=== PATIENT | male | born 1975 | race Caucasian/White ===

== ENCOUNTER 2017-01-11 20:32 | Emergency (ER) | payer OTHER ==
[~2017-01-11] VITALS: Ht 182.9 cm; Wt 90.7 kg
--- NOTE | 2017-01-11 20:37 | ED PSYCHIATRIC COMPLAINT ---
See Addendum History of Present Illness General Chief Complaint: Psychiatric Related Complaint Stated Complaint: PSYCH EVAL Source: patient, EMS, police Exam Limitations: clinical condition Vital Signs & Intake/Output Vital Signs & Intake/Output Vital Signs Date Time Temp Pulse Resp B/P Pulse O2 O2 Flow FiO2 Ox Delivery Rate 01/13 1426 97.0 80 18 166/89 96 Room Air 01/13 1039 97.2 92 18 145/90 97 Room Air 01/13 0650 97.0 66 20 153/82 95 Room Air 01/12 2233 97.0 78 20 148/95 94 Room Air 01/12 1852 97.2 77 18 152/95 97 Room Air Triage Nurses Notes Reviewed? yes Onset: Gradual Duration: day(s): Timing: recent history Severity: moderate Associated Symptoms: anxiety, agitation HPI: 41 yo gentleman h/o schizophrenia, presents with increased agitation. Per the police, he was aggressive, combative , with increased anxiety. His , who had been away for a week, came home to find him in this condition. It is unclear if he had been taking his medications. The medics note paranoia - he feels there are strangers in the home. They also note he expressed auditory and visual hallucinations. He denies SI/HI. (ALBERTO YEH,ROMELIA Cuellar) Allergies Coded Allergies: No Known Allergies (01/12/17) Reconcile Medications Clonazepam 1 MG TABLET 1 TAB PO BIDP PRN ANXIETY (Reported) Lamotrigine 100 MG TABLET 1 TAB PO DAILY MENTAL HEALTH (Reported) Levothyroxine Sodium 50 MCG TABLET 1 TAB PO DAILY AC THYROID (Reported) Casa Carbonate 600 MG CAPSULE 1 CAP PO BID MENTAL HEALTH (Reported) Quetiapine Fumarate (Seroquel XR) 50 MG TAB.ER.24H 2 TAB PO QPM MENTAL HEALTH (Reported) (JASMYN YEH,ROSENDA Roberts) Past History Travel History Traveled to [place] past 21 day No Medical History Any Pertinent Medical History? see below for history Psychiatric: schizophrenia Surgical History Surgical History: none Family History Hx Contributory? No (ALBERTO YEH,ROMELIA Cuellar) Review of Systems Review of Systems Constitutional: Reports: no symptoms. EENTM: Reports: no symptoms. Respiratory: Reports: no symptoms. Cardiovascular: Reports: no symptoms. GI: Reports: no symptoms. Genitourinary: Reports: no symptoms. Musculoskeletal: Reports: no symptoms. Skin: Reports: no symptoms. Neurological/Psychological: Reports: no symptoms. Hematologic/Endocrine: Reports: no symptoms. Immunologic/Allergic: Reports: no symptoms. All Other Systems: Reviewed and Negative (ROMELIA DOMINGUEZ MD) Physical Exam Physical Exam General Appearance: well developed/nourished, mild distress Head: atraumatic Eyes: Bilateral: PERRL, EOMI. Ears, Nose, Throat: normal pharynx, normal ENT inspection, hearing grossly normal Neck: normal inspection, supple Respiratory: normal breath sounds Cardiovascular: regular rate/rhythm Gastrointestinal: soft, non-tender Extremities: normal range of motion Neurological/Psychiatric: agitated, anxious, oriented x 3 Appearance/Memory/Insight: denies illness, disheveled, impaired insight Behavoir/Eye Contact/Speech: cooperative Thoughts/Hallucinations: auditory hallucinations Skin: intact, normal color, warm/dry SAD PERSONS SAD PERSONS Response Value Male Sex? yes 1 Depression/Hopelessness? yes 2 Rational Thinking Loss? yes 2 Social Support? has support 0 Total 5 SAD PERSONS Done? yes (ROMELIA DOMINGUEZ MD) Progress Differential Diagnosis: drug intoxication, schizophrenia vs other. Plan of Care: Orders Procedure Date/time Status Continuous Observation Monitor 01/13 1600 Active Continuous Observation Monitor 01/13 1200 Active Continuous Observation Monitor 01/13 0759 Active 01/12/2017 7:20:57 PM Patient signed out to me by Dr. Weaver. Pending inpatient crisis bed placement. (JAH HUGHES MD) Hand-Off Endorsed To: ROSENDA WEAVER MD Endorsed Time: 0700 Pending: consult (ROMELIA DOMINGUEZ MD) Hand-Off Endorsed To: JAH HUGHES MD Endorsed Time: 1900 Pending: other (BED SEARCH) Comments: Patient has been seen and evaluated by statement clerks supervisor. Patient will be admitted. A bed search is underway. (ROSENDA WEAVER MD) Hand-Off Endorsed To: DAISHA GUILLEN MD Endorsed Time: 0700 Pending: other (JAH HUGHES MD) Departure Departure Disposition: STILL A PATIENT Condition: Stable Clinical Impression Primary Impression: Schizophrenia Secondary Impressions: Alcohol intoxication, Hallucinations, Paranoia Referrals: DINORAH BENTLEY,FRED Craig (PCP/Family) Departure Forms: Customer Survey General Discharge Information (ALBERTO YEH,ROMELIA Cuellar) Sig/Dulce Start time Last Medication Dose Stop Time Status Admin Haloperidol 5 MG QPM 01/12 2200 UNVr (Haldol) Quetiapine Fumarate 100 MG QPM 01/12 2200 UNVr (Seroquel) Risperidone 3 MG QPM 01/12 2200 UNVr (Risperidone) Trazodone HCl 100 MG QPM 01/12 2200 UNVr (Desyrel) Lubiprostone 8 MCG BID 01/12 1000 UNVr (Amitiza) Clonazepam 2 MG ONCE ONE 01/11 2045 CAN (Klonopin 1MG Tab) 01/11 2046 Laboratory Tests 01/11/172135: Casa 0.2 L, Serum Alcohol 231.0 01/11/172135: Anion Gap 16, Estimated GFR > 60, BUN/Creatinine Ratio 13.8, Glucose 101 H, Calcium 9.8, Total Bilirubin 0.5, AST 125 H, ALT 115 H, Alkaline Phosphatase 47, Total Protein 7.2, Albumin 4.1, Globulin 3.1, Albumin/Globulin Ratio 1.3, TSH 3.280, CBC w Diff NO MAN DIFF REQ, RBC 5.72, MCV 83.8, MCH 28.7, RDW 13.7, MPV 7.2 L, Gran % 60.0, Lymphocytes % 27.2, Monocytes % 7.1, Eosinophils % 5.2 H, Basophils % 0.5, Absolute Granulocytes 6.7 H, Absolute Lymphocytes 3.1, Absolute Monocytes 0.8 H, Absolute Eosinophils 0.6, Absolute Basophils 0.1, PUBS MCHC 34.2, Urine Opiates Screen < 100.00, Methadone Screen < 40, Barbiturate Screen < 60, Ur Phencyclidine Scrn < 6.00, Amphetamines Screen < 100 , U Benzodiazepines Scrn < 85, Urine Cocaine Screen < 50, Urine Cannabis Screen < 5.00 01/12/2017 7:20:57 PM Patient signed out to me by Dr. Weaver. Pending inpatient crisis bed placement. (ELLEN YEH,JAH) Hand-Off Endorsed To: ROSENDA WEAVER MD Endorsed Time: 0700 Pending: consult (ALBERTO YEH,ROMELIA Cuellar) Hand-Off Endorsed To: JAH HUGHES MD Endorsed Time: 1899 Pending: other (BED SEARCH) Comments: Patient has been seen and evaluated by statement clerks supervisor. Patient will be admitted. A bed search is underway. (JASMYN YEH,ROSENDA Roberts) Hand-Off Endorsed To: MINDY YEH,DAISHA Monahan Endorsed Time: 07 Pending: other (JAH HUGHES MD) Departure Departure Disposition: STILL A PATIENT Condition: Stable Clinical Impression Primary Impression: Schizophrenia Secondary Impressions: Alcohol intoxication, Hallucinations, Paranoia Referrals: DINORAH BENTLEY,FRED Craig (PCP/Family) Departure Forms: Customer Survey General Discharge Information (ALBERTO YEH,ROMELIA Cuellar)
[2017-01-11 21:46] LABS: ABSOLUTE BASOPHIL COUNT 0.1 /CUMM (0.0-0.2); ABSOLUTE EOSINOPHIL COUNT 0.6 /CUMM (0.0-0.7); ABSOLUTE GRANULOCYTE CT 6.7 /CUMM (1.4-6.5); ABSOLUTE LYMPH COUNT 3.1 /CUMM (1.2-3.4); ABSOLUTE MONOCYTE COUNT 0.8 /CUMM (0.10-0.60); BASOPHIL % 0.5 % (0.0-2.0); EOSINOPHIL % 5.2 % (0-5); MEAN CORPUSCULAR HGB 28.7 PG (27.0-31.0); MEAN CORPUSCULAR HGB CONC 34.2 G/DL (33.0-37.0); MEAN CORPUSCULAR VOLUME 83.8 FL (80.0-94.0); MEAN PLATELET VOLUME 7.2 FL (7.4-10.4); PLATELET COUNT 239 /CUMM (130-400); RBC DISTRIBUTION WIDTH 13.7 % (11.5-14.5); RED BLOOD CELL CT 5.72 /CUMM (4.70-6.10); WHITE BLOOD CELL COUNT 11.2 /CUMM (4.8-10.8)
--- NOTE | 2017-01-11 22:15 | ED PSY CRISIS COLLATERAL NOTE ---
Collateral Note Collateral Note Family/Inform/Anju Contacts: Spoke to patient's Ammy araujo . Ammy states she has known the patient for four years. She states the patient moved from [facility] to live with her three years ago. Ammy states the patient has a history of inpatient psychiatric hospitalizations, his most recent being at [facility] in 2015. She reports the patient as being diagnosed with bipolar disorder with psychotic features. She reports the patient experiences auditory hallucinations, which at times are command in nature. She reports the patient experinces paranoid delusions of "people in the house talking about him that are not there." She reports the patient has a history of alcohol dependence to self-medicate and is prescibed Antabuse. She reports he is prescribed [place] and Lamictal, which a visiting nurse assures he complies with taking on a daily basis. She reports the patient was prescribed risperdal 3mg daily, which helped eliminate the voices from 10/2015 to 06/2016. However, Ammy states the patient refused to take the Risperdal as it was causing him to gain weight when he changed SLIP PRESSER in 06/2016. She states the patient is currently being prescribed medications by an SLIP PRESSER Guido at [facility] in [place], [place]. She reports the patient has been decompensating since he has not been on risperdal. She reports that the patient's psychosis and auditory hallucinations have worsened becoming command in nature. She reports the patient has enagged in self harm of cutting himself. She states the patient has no history of suicide attempts or homicidal ideation. Ammy states that she feels the patient is not safe to go home in his current state and requests inpatient admission to for medication evaluation. This report prepared by LATRELL Beverly Technical Program Manager and signed off by Tyrone Rolon LCSW
[2017-01-11 22:41] LABS: LITHIUM 0.2 mmol/L (0.6-1.2)
--- NOTE | 2017-01-12 12:07 | ED PSYCH CRISIS CONSULTATION ---
See Addendum Crisis Consult Basic Assessment Date of Consult: 01/12/17 Responsible Person/Accompanied By: Self Insurance Authorization: Insurance #1: Insurance name: RAE ALVAREZ Phone number: Policy number: [id number] Group number: Authorization number: ED Provider: Patient's ED Provider: ALBERTO YEH,ROMELIA Cuellar Primary Care Physician: Patient's PCP: FRED MENA PCP's Current Psychiatrist: Dr. Shane Esquivel Chief Complaint: Psychiatric Related Complaint Patient's Quote: " I have been hearing voices telling someone is in my house" Present Illness: Pt is a 41 year old engaged male with a history of Schizoaffective Disorder. Pt presents to the emergency room after hearing voices telling him someone is in his attic on January 11, 2017. He reports the police was called to his home and the house was searched, and the voices kept telling him someone was in his attic. He was then BIBA Per the police, he was aggressive, combative, with increased anxiety. His , who had been away for a week, came home to find him in this condition. Pt reports a history of Alcohol use and drink (2) shots to help his voices go away. He denies any suicidal or homicidal ideation. Pt denies any depression or feeling sad, reports worrying about employment and being able to contribute in his relationship. He denies visual hallucination and reports a history of auditory hallucinations. Pt reports a long history of hearing voices, history of command hallucinations to kill self. He reports this episode of hearing voices being paranoid that someone is in his house. Pt reports the voices has been getting worse and needs the voices to get better. He reports being treated at [facility] in [place], [place]. He reports current medications [place] 600 mg, Lamictal 100mg, Seroquel 100 mg. He reports being treated in the past with Risperdal 3 mg with good affect for the voices and reports the Risperdal was change to Seroquel. Pt reports not liking the side affects of Risperdal weight gain. The Pt is cuurently engaged to Ammy Cano who is concerned the Pt needs to be stabilized. Patient's Address: [address] [place] [address] Other Phone Number: Who Do You Live With? Friend (current engaged) Family/Informants Interviewed: Ammy Cano [phone] (engaged) Allergies - Coded Allergies: No Known Allergies (01/12/17) Laboratory Results: Laboratory Tests 01/11/172135: [place] 0.2 L, Serum Alcohol 231.0 01/11/172135: Anion Gap 16, Estimated GFR > 60, BUN/Creatinine Ratio 13.8, Glucose 101 H, Calcium 9.8, Total Bilirubin 0.5, AST 125 H, ALT 115 H, Alkaline Phosphatase 47, Total Protein 7.2, Albumin 4.1, Globulin 3.1, Albumin/Globulin Ratio 1.3, TSH 3.280, CBC w Diff NO MAN DIFF REQ, RBC 5.72, MCV 83.8, MCH 28.7, RDW 13.7, MPV 7.2 L, Gran % 60.0, Lymphocytes % 27.2, Monocytes % 7.1, Eosinophils % 5.2 H, Basophils % 0.5, Absolute Granulocytes 6.7 H, Absolute Lymphocytes 3.1, Absolute Monocytes 0.8 H, Absolute Eosinophils 0.6, Absolute Basophils 0.1, PUBS MCHC 34.2, Urine Opiates Screen < 100.00, Methadone Screen < 40, Barbiturate Screen < 60, Ur Phencyclidine Scrn < 6.00, Amphetamines Screen < 100 , U Benzodiazepines Scrn < 85, Urine Cocaine Screen < 50, Urine Cannabis Screen < 5.00 Past History Past Medical History Psychiatric: schizo affective disorder, schizophrenia, BIPOLAR 1 Endocrine: hypothyroidism Past Surgical History Surgical History: 1 Psychosocial History Strengths/Capabilities: Pt has a supportive significant other Ammy Cano [phone], motivated for treatment. Psychiatric Treatment History Psych Treatment Psychiatric Treatment Yes Inpatient Treatment Yes Outpatient Treatment Yes Location of Treatment [place] Reason for Treatment Schizoaffective Disorder Dates of Treatment currently being treated at [facility] Response to Treatment Poor Diagnosis by History: Bipolar Disoder with Psychotic features. Substance Use/Abuse History Drug Use/Abuse Substances Used/Abused Yes Substance Used/Abused Alcohol First Use 13 year old Last Used yesterday (2) shots How much used/taken 2 shots How often occassionally For how long unknown Route of use oral Substance Abuse Treatment Substance Abuse Treatment Past Substance Abuse [place] Yes Inpatient Treatment Yes Outpatient Treatment No Location of Treatment Out of [facility] Reason for Treatment Alcohol use Dates of Treatment 2004 Response to Treatment poor Comments: Pt presents to the emergency room with auditory hallcinations hearing voices telling someone is in his attic. He has decompensated after not taken Risperdal and drinking Alcohol to calm voices, this clinician consulted with Dr. Shane Esquivel for dispostion of inpatient psychiatric treatment to stabilze the Pt. Current Mental Status Mental Status Orientation: Person, Place, Situation Affect: Anxious, Flat Speech: Slurred Neuro-vegetative: Concentration Poor, Sleep Disturbance Appearance Appearance- Dress/Hygiene: dressed in hospital clothing. Behaviors Thought Process: WNL Thought Content: Auditory Hallucinations, Paranoid Memory: Short term memory Insight: Poor SI/HI Risk Assessment Past Suicidal Ideation/Attempts No Current Suicidal Ideation/Att No Past Homicidal Ideation/Att: No Current Homicidal Ideation/Attempts No Degree of Intent: None Gravely Disabled: Lack of Insight, Poor Impulse Control, Poor Judgment Risk Factors: SA/MH hospitalized, substance abuse, lack of outcome concern, male Lethality Ratin PTSD Checklist PTSD Score: PTSD Score: Response Value Disturbing memories,thoughts,images of stressful experience? Not at all 1 Disturbing dreams of stressful experience from past? Not at all 1 Suddenly acting/feeling as if reliving stressful experience? Not at all 1 Total 3 PTSD Done? pt unable to participate ED Management Sitter: Yes Restraints: No DSM5/PS Stressors/Medical Prob Diagnosis' (DSM 5, Stressors, Medical): Bipolar Disorder, current with psychotic features F31.2 Current GAF: 25 Comments: Pt presents to the emergency room with auditory hallcinations hearing voices telling someone is in his attic. He has decompensated after not taken Risperdal and drinking Alcohol to calm voices, this clinician consulted with Dr. Shane Esquivel for dispostion of inpatient psychiatric treatment to stabilze the Pt. Departure Disposition Psych Medical Clearance Date: 01/12/17 Medically Cleared at: 1000 Time Started: 1000 Time Ended: 1100 Psychiatrist Consulted: Dr. Shane Esquivel Plan for Disposition - Modality: Bed Search Rationale for Disposition: Pt presents to the emergency room with auditory hallcinations hearing voices telling someone is in his attic. He has decompensated after not taken Risperdal and drinking Alcohol to calm voices, this clinician consulted with Dr. Shane Esquivel for dispostion of inpatient psychiatric treatment to stabilze the Pt. Type of IP Admission: Voluntary Referrals DINORAH BENTLEY,FRED Craig (PCP/Family)
--- NOTE | 2017-01-12 13:11 | ED PSYCHIATRIST/APRN CONSULT ---
See Addendum Psychiatrist/DEVELOPMENT SYSTEM EFFICIENCY MANAGER ED Consult Assessment and Plan: Pt seen as follow-up. In bed, limited engagement but cooperative. Denies SI or HI. MSE Appears as stated age. Not engaged but cooperative behavior, good, appropriate eye contact. Nl speech rate and prosody. No psychomotor retardation or agitation. Mood waiting Affect irritable, constricted, appropriate, non- liable. Linear and goal directed thought process. Denies SI or HI. Does not appear to be responding to internal stimuli. ?AVHs, paranoia, delusions. I/J: limited Pt in need of acute psychiatric stablization. Awaiting placement. Bed search underway
[2017-01-12] MEDS ORDERED: LITHIUM CARBON600 M1 PO (14:25)
[2017-01-12] MEDS ORDERED: LAMOTRIGINE100 M2 PO (14:26)
[2017-01-12] MEDS ORDERED: LEVOTHYROXINE50 MCG PO (14:26)
[2017-01-12] MEDS ORDERED: SEROQUEL XR50 M1 PO (14:26)
[2017-01-12] MEDS ORDERED: CLONAZEPAM1 M2 PO (14:27)
--- NOTE | 2017-01-13 12:19 | ED PSYCHIATRIST/APRN CONSULT ---
Psychiatrist/LINEN WORKER ED Consult Assessment and Plan: Pt seen as f/u. Pt notes thoughts are "a little slower." Feels dose of zyprexa in addition to current regimen was helpful. Continues to feel the need for inpatient psych. MSE Appears as stated age. Cooperative behavior, good, appropriate eye contact. Nl speech rate and prosody. + mild psychomotor agitation. Mood OK Affect anxious , constricted, appropriate, non-liable. Linear and goal directed thought process though slightly racing. Denies SI or HI. Does not appear to be responding to internal stimuli. +AVHs,+paranoia, +elusions. I/J: limited Pt needs acute psychiatric stablization. Awaiting bed.
[2017-01-14 13:11] VITALS: BP 138/72
[2017-01-14] MEDS ORDERED: LAMICTAL100 M2 PO (13:34)
[2017-01-14] MEDS ORDERED: SEROQUEL XR50 M1 PO (13:34)
[2017-01-14] MEDS ORDERED: LITHIUM CARBON600 M1 PO (13:34)
[2017-01-14] MEDS ORDERED: RISPERDAL3 M1 PO (13:48)
== END 2017-01-14 13:59 ==
LOC: ERH 20:32
PROVIDERS: Pediatrics
DX: F20.9 Schizophrenia, unspecified (principal); F10.129 Alcohol abuse with intoxication, unspecified; R44.3 Hallucinations, unspecified; F22 Delusional disorders
CPT/HCPCS: 80307; 96372; G0463; G0480; J1630

== ENCOUNTER 2017-01-17 20:17 | Inpatient (IN) | payer OTHER ==
[~2017-01-17] VITALS: Ht 180.3 cm; Wt 136.8 kg
[~2017-01-17 20:17] MED LIST: CLONAZEPAM1 M2 PO; LAMICTAL100 M2 PO; LAMOTRIGINE100 M2 PO; LEVOTHYROXINE50 MCG PO; LITHIUM CARBON600 M1 PO; RISPERDAL3 M1 PO; SEROQUEL XR50 M1 PO
--- NOTE | 2017-01-17 21:34 | ED PSYCHIATRIC COMPLAINT ---
History of Present Illness General Chief Complaint: Psychiatric Related Complaint Stated Complaint: "HALLUCINATIONS, ETOH" PER FIANCE Source: patient, family, old records Exam Limitations: no limitations Vital Signs & Intake/Output Vital Signs & Intake/Output Vital Signs Date Time Temp Pulse Resp B/P B/P Pulse O2 O2 Flow FiO2 Mean Ox Delivery Rate 01/18 1111 97.4 76 20 172/82 96 Room Air 01/18 0839 97.2 86 18 157/83 96 Room Air 01/18 0632 98.1 91 20 165/94 01/18 0628 98.1 91 20 165/94 95 Room Air 01/18 0430 85 20 01/18 0430 85 20 96 01/18 0219 11 153/90 01/18 0200 98.1 98 20 153/90 96 Room Air 01/18 0030 98.0 95 20 145/86 96 01/17 2250 98.2 89 20 138/77 96 01/17 2027 98.4 110 20 120/71 95 Room Air ED Intake and Output 01/18 0000 01/17 1200 Intake Total Output Total Balance Patient 290 lb Weight Weight Reported by Patient Measurement Method Allergies Coded Allergies: No Known Allergies (01/12/17) Reconcile Medications Clonazepam 1 MG TABLET 1 TAB PO BIDP PRN ANXIETY (Reported) Lamotrigine 100 MG TABLET 1 TAB PO DAILY MENTAL HEALTH (Reported) Levothyroxine Sodium 50 MCG TABLET 1 TAB PO DAILY AC THYROID (Reported) [place] Carbonate 600 MG CAPSULE 1 CAP PO BID MENTAL HEALTH (Reported) Risperidone (Risperdal) 3 MG TABLET 1 TAB PO QPM SLEEP Triage Note: PT TO ED FOR AUDITORY/VISUAL HALLUCINATIONS AND WORSENING PARANOIA. PT RECENTLY SEEN AND DISCHARGED FROM ED FOR SAME LAST SATURDAY. DENIES SI/HI. PT ADMITS TO DRINKING APPROX 1 PINT OF VODKA TODAY AND HAS BEEN DAILY FOR LAST 2.5 WEEKS. NO HX OF DETOX SEIZURES. Triage Nurses Notes Reviewed? yes Onset: several days Duration: day(s):, changing over time, continues in ED, getting worse Timing: recent history Severity: moderate Associated Symptoms: impaired concentration, hallucination auditory and visual HPI: Since discharge from hospital less than 1 week ago patient began drinking alcohol with progressive auditory and visual hallucinations. He denies fever chills nausea vomiting diarrhea abdominal pain chest pain shortness breath headache dysuria rash bleeding suicidal ideation homicidal ideation. (TJ VALENCIA MD) Past History Travel History Traveled to [place] past 21 day No Medical History Any Pertinent Medical History? see below for history Neurological: NONE EENT: NONE Cardiovascular: NONE Respiratory: NONE Gastrointestinal: NONE Hepatic: NONE Renal: NONE Musculoskeletal: NONE Psychiatric: schizo affective disorder, schizophrenia, BIPOLAR 1 Endocrine: hypothyroidism Blood Disorders: NONE Cancer(s): NONE Isolation History: Standard Surgical History Surgical History: none Psychosocial History Who do you live with Friend What is your primary language Arabic Tobacco Use: Never used ETOH Use: alcoholic Illicit Drug Use: denies illicit drug use Family History Hx Contributory? No (TJ VALENCIA MD) Review of Systems Review of Systems Constitutional: Reports: no symptoms. EENTM: Reports: no symptoms. Respiratory: Reports: no symptoms. Cardiovascular: Reports: no symptoms. GI: Reports: no symptoms. Genitourinary: Reports: no symptoms. Musculoskeletal: Reports: no symptoms. Skin: Reports: no symptoms. Neurological/Psychological: Reports: see HPI, anxiety, confusion. Hematologic/Endocrine: Reports: no symptoms. Immunologic/Allergic: Reports: no symptoms. All Other Systems: Reviewed and Negative (TJ VALENCIA MD) Physical Exam Physical Exam General Appearance: well developed/nourished, alert, awake, anxious, moderate distress, intoxicated, obese Head: atraumatic, normal appearance Eyes: Bilateral: normal appearance, PERRL, EOMI. 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 patient not suicidal (TJ VALENCIA MD) Progress Differential Diagnosis: drug intoxication, drug overdose, drug withdrawal, electrolyte abnormality, hypoglycemia Plan of Care: Orders Procedure Date/time Status Regular Diet 01/18 B Active Admit to inpatient psych 01/18 1421 Active Patient Safety Monitor 01/18 0700 Active Patient Safety Monitor 01/18 0300 Active Patient Safety Monitor 01/17 230 Active Patient Safety Monitor 01/17 2105 Active URINE DRUG SCREEN FOR ER ONLY 01/17 2105 Complete LITHIUM 01/17 2105 Complete ETHANOL 01/17 2105 Complete COMPREHENSIVE METABOLIC PANEL 01/17 2105 Complete CBC WITHOUT DIFFERENTIAL 01/17 2105 Complete ED CRISIS PSYCH CONSULT 01/17 2105 Active Current Medications Sig/Dulce Start time Last Medication Dose Stop Time Status Admin [place] Carbonate 600 MG BID 01/18 1330 UNVr ([place] Carbonate) Levothyroxine Sodium 0.05 MG DAILY AC 01/18 1328 UNVr (Synthroid) Laboratory Tests 01/18/17 0641: Urine Opiates Screen < 100.00, Methadone Screen < 40, Barbiturate Screen < 60, Ur Phencyclidine Scrn < 6.00, Amphetamines Screen < 100, U Benzodiazepines Scrn < 85, Urine Cocaine Screen < 50, Urine Cannabis Screen < 5.00 01/17/17 2150: Anion Gap 16, Estimated GFR > 60, BUN/Creatinine Ratio 14.2, Glucose 100 H, Calcium 9.6, Total Bilirubin 0.6, AST 96 H, ALT 129 H, Alkaline Phosphatase 42 , Total Protein 7.1, Albumin 4.1, Globulin 3.0, Albumin/Globulin Ratio 1.4, CBC w Diff NO MAN DIFF REQ, RBC 5.40, MCV 84.8, MCH 29.3, RDW 14.4, MPV 7.0 L, Gran % 56.4, Lymphocytes % 28.5, Monocytes % 9.7 H, Eosinophils % 4.2, Basophils % 1.2, Absolute Granulocytes 5.6, Absolute Lymphocytes 2.8, Absolute Monocytes 1.0 H, Absolute Eosinophils 0.4, Absolute Basophils 0.1, PUBS MCHC 34.6, [place] 0.4 L, Serum Alcohol 147.0 7:20 AM Patient signed out to me by Dr. Valencia. Pending crisis evaluation. (ELLEN YEH,JAH) Hand-Off Endorsed To: JAH HUGHES MD Endorsed Time: 0700 Pending: consult (ERIK YEH,TJ) Departure Departure Disposition: STILL A PATIENT Condition: Stable Referrals: DINORAH BENTLEY,FRED Craig (PCP/Family) Departure Forms: Customer Survey General Discharge Information (ERIK YEH,TJ) Departure Time of Disposition: 1420 Clinical Impression Primary Impression: Schizophrenia Qualifiers: Schizophrenia type: unspecified Qualified Code: F20.9 - Schizophrenia, unspecified Secondary Impressions: Alcohol intoxication Qualifiers: Complication of substance-induced condition: with delirium Qualified Code: F10.121 - Alcohol abuse with intoxication delirium Bipolar 1 disorder Psych Admission Note Psychiatric Admission: I have seen and evaluated HARINDER WHITEHEAD. I have also reviewed all the pertinent lab results and diagnostic results. HARINDER WHITEHEAD will be admitted to our inpatient Psychiatric unit for treatment and care. (ELLEN YEH,JAH)
[2017-01-17 22:02] LABS: ABSOLUTE BASOPHIL COUNT 0.1 /CUMM (0.0-0.2); ABSOLUTE EOSINOPHIL COUNT 0.4 /CUMM (0.0-0.7); ABSOLUTE GRANULOCYTE CT 5.6 /CUMM (1.4-6.5); ABSOLUTE LYMPH COUNT 2.8 /CUMM (1.2-3.4); BASOPHIL % 1.2 % (0.0-2.0); EOSINOPHIL % 4.2 % (0-5); GRANULOCYTE % 56.4 % (42.2-75.2); HEMATOCRIT 45.8 % (42-52); MEAN CORPUSCULAR HGB 29.3 PG (27.0-31.0); MEAN CORPUSCULAR HGB CONC 34.6 G/DL (33.0-37.0); MEAN CORPUSCULAR VOLUME 84.8 FL (80.0-94.0); PLATELET COUNT 227 /CUMM (130-400); RBC DISTRIBUTION WIDTH 14.4 % (11.5-14.5); WHITE BLOOD CELL COUNT 9.9 /CUMM (4.8-10.8)
[2017-01-17 22:22] LABS: LITHIUM 0.4 mmol/L (0.6-1.2)
[2017-01-18] VITALS (8 sets, daily range): BP systolic 153–165; BP diastolic 90–110
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
--- NOTE | 2017-01-18 21:26 | History & Physical ---
General Information and HPI MD Statement: I have seen and personally examined HARINDER WHITEHEAD and documented this H&P. The patient is a 41 year old M who presented with a patient stated chief complaint of [medical evalutation]. Source of Information: patient Exam Limitations: no limitations History of Present Illness: Patient is admitted Inpatient Psych for auditory hallucinations. Patient states that he is not "regular drinker", whenever he hears voices and they are annoying then he binge drinks. He started drinking alcohol this time, 15 days back, still voices were making fun of him so he came to ER. He reports gaining 30 lb weight in 1 month after starting risperidone, and fluid retention. He takes risperidone on and off mostly because of side effects, weight gain and loss of libido. But it works very well for his voices and symptoms. He follows up with PCP regularly and does not have any chronic medical conditions, except hypothyroidism which he developed secondary to lithium. He last checked his TSH in September and it was in acceptable range according to his PCP. He also has seasonal allergies, nasal congestion and left ear fullness. no headache, SOB, CP , dizziness, LOC, cough, sore throat, fever, chills, abdo pain, urinary symptoms, neurological weakness. Allergies/Medications Allergies: Coded Allergies: No Known Allergies (01/12/17) Home Med list Lamotrigine 100 MG TABLET 1 TAB PO DAILY MENTAL HEALTH (Reported) Levothyroxine Sodium 50 MCG TABLET 1 TAB PO DAILY AC THYROID (Reported) [place] Carbonate 600 MG CAPSULE 1 CAP PO BID MENTAL HEALTH (Reported) Risperidone (Risperdal) 3 MG TABLET 1 TAB PO QPM SLEEP Compliance With Home Meds: FAIR Past History Travel History Traveled to [place] past 21 day No Medical History Neurological: NONE EENT: NONE Cardiovascular: NONE Respiratory: obstructive sleep apnea Gastrointestinal: NONE Hepatic: NONE Renal: NONE Musculoskeletal: NONE Psychiatric: schizo affective disorder, schizophrenia, BIPOLAR 1 Endocrine: hypothyroidism Blood Disorders: NONE Cancer(s): NONE History of MRSA: No History of VRE: No History of CDIFF: No Isolation History: Standard Surgical History Surgical History: none Past Family/Social History Family History Relations & Conditions if any Relation not specified for: *No pertinent family history Psychosocial History Where do you live? Home Who Do You Live With? spouse (girl friend) Services at Home: None Primary Language: Jamaican Smoking Status: Never Smoked ETOH Use: occasional use Illicit Drug Use: denies illicit drug use Living Will? no Functional Ability ADLs Independent: dressing, eating, toileting, bathing. Ambulation: independent IADLs Independent: shopping, housework, finances, food prep, telephone, transportation , medication admin. Sexual History Sexually Active Yes # of partners 1 Sexual Orientation Heterosexual Use of Protection No Review of Systems Review of Systems Constitutional: Reports: no symptoms. EENTM: Reports: no symptoms, nasal congestion. Denies: ear discharge, ear pain, ear redness, hearing changes, throat pain. Cardiovascular: Reports: no symptoms, peripheral edema. Respiratory: Reports: no symptoms. GI: Reports: no symptoms. Genitourinary: Reports: no symptoms. Musculoskeletal: Reports: no symptoms. Skin: Reports: no symptoms. Neurological/Psychological: Reports: no symptoms. Hematologic/Endocrine: Reports: no symptoms. Immunologic/Allergic: Reports: no symptoms. All Other Systems: Reviewed and Negative Exam & Diagnostic Data Last 24 Hrs of Vital Signs/I&O Vital Signs Date Time Temp Pulse Resp B/P B/P Pulse O2 O2 Flow FiO2 Mean Ox Delivery Rate 01/18 2030 98.1 92 154/92 01/18 2019 98.1 92 154/92 01/18 1813 75 158/110 01/18 1608 98.0 84 164/90 01/18 1606 98.6 84 164/90 01/18 1432 97.5 78 20 144/80 97 Room Air 01/18 1111 97.4 76 20 172/82 96 Room Air 01/18 0839 97.2 86 18 157/83 96 Room Air 01/18 0632 98.1 91 20 165/94 01/18 0628 98.1 91 20 165/94 95 Room Air 01/18 0430 85 20 01/18 0430 85 20 96 01/18 0219 11 153/90 01/18 0200 98.1 98 20 153/90 96 Room Air 01/18 0030 98.0 95 20 145/86 96 01/17 2250 98.2 89 20 138/77 96 Intake & Output 01/18 0000 01/18 0800 01/18 1600 Intake Total Output Total Balance Patient 131.542 kg Weight Weight Reported by Patient Measurement Method Physical Exam General Appearance Alert, Oriented X3, Cooperative, No Acute Distress Skin No Rashes, No Breakdown HEENT Atraumatic, PERRLA, EOMI, Mucous Membr. moist/pink Neck Supple, No JVD, No thryomegaly, +2 Carotid Pulse wo Bruit Lymphatic Cervical nl Cardiovascular Regular Rate, Normal S1, Normal S2, No Murmurs Lungs Clear to Auscultation, Normal Air Movement Abdomen Normal Bowel Sounds, Soft, No Tenderness, No Hepatospenomegaly, No Masses Neurological Exam Findings: Normal Gait, Normal Speech, Strength at 5/5 X4 Ext, Normal Tone, Sensation Intact, Cranial Nerves 3-12 NL, Reflexes 2+ Cranial Nerves II through XII: 3 to 12 intact Extremities No Clubbing, No Cyanosis, Normal Pulses, No Tenderness/Swelling, trace pedal edema Vascular Normal Pulses, Pulses Symmetrical Last 24 Hrs of Labs/Alexandre: Laboratory Tests 01/18/17 0641: Urine Opiates Screen < 100.00, Methadone Screen < 40, Barbiturate Screen < 60, Ur Phencyclidine Scrn < 6.00, Amphetamines Screen < 100, U Benzodiazepines Scrn < 85, Urine Cocaine Screen < 50, Urine Cannabis Screen < 5.00 01/17/17 2150: Anion Gap 16, Estimated GFR > 60, BUN/Creatinine Ratio 14.2, Glucose 100 H, Calcium 9.6, Total Bilirubin 0.6, AST 96 H, ALT 129 H, Alkaline Phosphatase 42 , Total Protein 7.1, Albumin 4.1, Globulin 3.0, Albumin/Globulin Ratio 1.4, CBC w Diff NO MAN DIFF REQ, RBC 5.40, MCV 84.8, MCH 29.3, RDW 14.4, MPV 7.0 L, Gran % 56.4, Lymphocytes % 28.5, Monocytes % 9.7 H, Eosinophils % 4.2, Basophils % 1.2, Absolute Granulocytes 5.6, Absolute Lymphocytes 2.8, Absolute Monocytes 1.0 H, Absolute Eosinophils 0.4, Absolute Basophils 0.1, PUBS MCHC 34.6, [place] 0.4 L, Serum Alcohol 147.0 Diagnostic Data EKG Results ordered CXR Results was not obtained in ER Assessment/Plan Assessment: # Bipolar D/O with psychosis with Schizoaffective bipolar: agree with Psychiatry plan # Alcohol Use Severe: occasional, secondary to auditary hallucinations. # Elevated BP: no official diagnosis of HTN, ?alcohol withdrawal but patient started drinking 15 days back, less likely he will be dependent. If BP is persistently elevated, I will give one small dose of HCTZ tonight and re- evaluate. # Hx Hypothyroidism: continue home doses of levothyroixin, I will check TSH in morning. # Upper respiratory congestion secondary to seasonal allery : I will continue nasonex. # EKG reviewed: shows some St changes in 2, 3, avf, with rsr' pattern, ?strain, no chest pain. repeat EKG in am As Ranked By This Provider Problem List: 1. Schizophrenia Qualifiers Schizophrenia type: unspecified Qualified Code: F20.9 - Schizophrenia, unspecified 2. Hallucinations 3. Hypothyroidism Miscellaneous Miscellaneous Documentation Attending Case Discussed With: LANDRY VALERIO MD Primary Care Physician: FRED MENA Patient sees these Specialists none Level of Patient Care: KP Perry
--- NOTE | 2017-01-18 22:12 | Admission Certification ---
Admission Certification Certification Statement - As attending physician, I certify that at the time of - admission, based on clinical presentation, severity of - symptoms, need for further diagnostic testing and - therapeutic interventions, and risk of adverse outcomes - without in-hospital treatment, in my clinical assessment, - this patient requires an acute hospital stay for a minimum - of two nights or longer. I have also considered psychsocial - factors such as support system, advanced age, financial - issues, cognitive issues, and failed out-patient treatments, - past re-admission history, safety of patient, and lack of - compliance as applicable. Specific rationale supporting this admission is: Bipolar D/O with psychosis Schizoaffective bipolar
[2017-01-19] VITALS (7 sets, daily range): BP systolic 142–185; BP diastolic 87–98
--- NOTE | 2017-01-19 10:37 | CPS MD/APRN INITIAL ASSE PSYCH ---
Psychiatric Admission [facility] Helper's Note Reviewed: Yes Patient Seen and Examined: Yes Identifying Information: 41 y/o white man Chief Complaint: voices Reaction to Hospitalization: amenable History of Present Illness Onset of Illness: several years ago Circumstances Leading to Admission: med non adherence; etoh use Problem(s) Justifying Need for Admission: worsening paranoia w/ command voices to kill self. Past Psychiatric History Past Diagnosis(es)- if any: etoh use d/o Past Precipitating Factors- if any: med non adherence; substance use - Include inpatient and outpatient treatment Treatment History: stated that he was doing well and sober when he was on risperdal for a year. History of Suicide Attempts or Gestures cutting self as self harm; no suicide attempts. Substance Abuse History: alcohol - started drinking about 13 y/o; longest time sober in his 20s for about 3-4 years when he was very involved in exercise. When he was 38 y/o he was sober for a year. Had been in inpatient program in 2003. never had shakiness or sz; just sweating. No other drugs, no cig use. Allergies: Coded Allergies: No Known Allergies (01/12/17) Home Med List: see note - Include any medical condition(s) that may - impact the patient's recovery/remission Past Medical History: recent stuffiness and allergy like sx. Past History Medical History Neurological: NONE EENT: NONE Cardiovascular: NONE Respiratory: obstructive sleep apnea Gastrointestinal: NONE Hepatic: NONE Renal: NONE Musculoskeletal: NONE Psychiatric: schizo affective disorder, schizophrenia, BIPOLAR 1 Endocrine: hypothyroidism Blood Disorders: NONE Cancer(s): NONE History of MRSA: No History of VRE: No History of CDIFF: No Isolation History: Standard Surgical History Surgical History: non-contributory Psychiatric Family/Social Hx Family History Psychiatric Illness: Brother, cousin, uncle - Bipolar I Grandfather - schizophrenic Substance Use: brother and uncle, grandfather - alcohol. Suicides: grandmother attempted suicide, none completed Social History Living Situation: Lives w/ his fiancee; has been together for 4 years. Significant Relationships (family/friends): No children. Close w/ his mom. Lost friends b/c of mental health issues per him. Education: HS grad, college degree in botany and chemistry; masters degree in plant physiology. 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 Legal: DUIs [employer] Behaviors Screening Tobacco Screening Tobacco Use from ED Docu: Never used - If tobacco counseling indicated - the following topics are required. - #1 Recognizing dangerous situations. - #2 Coping Skills. - #3 Basic information about quitting. Status of Tobacco Cessation Counseling: N/A B/C NO TOB USE Cessation Med Status: No Tobacco Use last 30d Alcohol Screening - ETOH screen POS if BAL >=80 or Audit-C>= M4/F3 Audit-C Score from Diag Assess: 10 Blood Alcohol Level: Laboratory Tests 01/17 2150 Toxicology Serum Alcohol (<10 MG/DL) 147.0 Alcohol Use Screening Results: Pos per Audit C &/or BAL - If ETOH counseling indicated - the following topics are required. - #1 Express concern about the patient's - drinking at unhealthy levels, include informing - of national norms for moderate drinking: - men <= 14 drinks/week, max 4 drinks/occasion - women <= 7 drinks/week, max 3 drinks/occasion - #2 Providing feedback, including linking alcohol to - negative physical effects (liver injury, hypertension) - negative emotional effects (relationship problems and - depression) - negative occupational consequences (reduced work - performance) - #3 Advising the patient to abstain from alcohol or - to drink below national norms for moderate drinking - (as listed above). Status of ETOH Use Counseling: #1, #2 AND #3 Completed. (educated about substance use) Metabolic Screening - Screen if on a Neuroleptic Medication - Metabolic screening should include: - Blood Pressure, BMI, Glucose or Hgb A1c, & a - Lipid profile from within the past 365 days. Metabolic Screening () Not Applicable, patient not on a neuroleptic. OR () Patient on a neuroleptic(s) . Enter below results for Glucose or Hemoglobin A1C, and lipid panel if obtained during the last 365 days. BMI: 42.000 Blood Pressure: 146/96 Laboratory Results (If applicable): Exam and Plan Mental Status Examination Ambulation Status: normal Appearance: well groomed Attitude towards examiner: cooperative Psychomotor activity: normal Behavior: well related Quality of speech: normal Affect: full Mood: good Suicidal Ideation: none Homicidal Ideation: none Hallucinations: commentary only, not command Paranoid/Delusional Material: none Difficulties with thought organization: none Insight: fair Judgment: good Orientation: x4 Cognition: intact Memory Function: intact Estimate of intellectual functioning: average or above average Assets/Strengths Patient Identified Assets/Strengths: van Impression/Plan Impression and Plan: 41 y/o gentleman w/ hx etoh use d/o, psychotic illness, admitted yesterday w/ worsening paranoia. He Had been observed in the ER one week ago w/ similar sx, re-started on risperdal, discharged from the ER. Stated that he hates risperdal and didnt take his meds this week; that he was taping the plugs on the [place], taping the doors, thought that people were trying to get into his house. Stated that risperdal works very fast for him; accounting for his improvement over the last day; additionally agreed that etoh was impacting his mental status (level on admission 147). He stated that normally when he does well, he can work, exercise, maintain relationships; that the paranoia and etoh have been worsening and he has needed stabilization. He denied past suicide attempts, stating that cutting wrists in self harm/frustration attempt was worse thing he has done to self. Insight to his paranoia hx present, aware of recent behavior, though admits etoh makes his memory of past events difficult at times. Stated that alcohol helps voices initially, that he normally doesnt drink unless the voices are bad. Stated that the voices have been calm and commentary type things time to go to dinner telling him the time; etc; not command in nature. Stated that he is often motivated to taper off risperdal b/c of weight gain, sexual dysfunction, but that he has tried many other meds in the past w/o any improvement and that risperdal helps the most. Stated that he has slept and ate well since had been here. Imp: 41 y/o gentleman w/ hx etoh use d/o, psychotic illness, admitted yesterday w/ worsening paranoia and voices in context of med non adherence and etoh relapse. He had been in ER last week w/ similar sx and stabilized quickly, however stopped his meds again this week. He does not appear grossly psychotic, appears to be reconstituting overall. Plan: Meds: continue risperdal, lithium dosing. Stated that he will consider the Risperdal consta, that he was on abilify maintenna in the past and knows that dec might help him maintain remission and keep him away from etoh; was happy that dosing was every 2-3 weeks, stating that it made him less worried about having a high level in his blood and more able to have the dosing titrated. Consider risperdal consta prior to d/c. Weight: hba1c, tsh (hx thyroid problems), lipid panel tmr. Will manage his weight gain w/ working out, doing more cardio compared to weight lifiting. 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 Substance: educated about impact of etoh on mental and physical health, liver; about risk of relapse and outpatient support groups. Has had no obvious signs of w/drawal (and denied significant hx withdrawal). Milieu therapy, engage fibobe in outpatient planning; groups. - Include all active medical diagnosis that require tx DSM 5 Diagnosis(es): unspecified psychotic d/o, bipolar d/o by hx. Etoh use d/o - Initial Tx Plan for Active Psych & Medical Conditions Treatment Plan: multidisciplinary, see above. - Factors that would help patient function - in a less restrictive setting. Factors: Risk: elevated risk due to recent relapse and alcohol use; hx of success in tx, family support, fair insight and periods of stability as risk lowering factors. Currently low acute risk due to clinical improvement, lack of acute psychotic sx , lack of acute w/drawal sx and future oriented, accepting tx.
[2017-01-20] VITALS (8 sets, daily range): BP systolic 146–160; BP diastolic 82–94
--- NOTE | 2017-01-20 13:19 | CP SOUTH PROGRESS NOTE PSYCH ---
Psych (Inpt) Progress Note Progress Note Include the following elements, when applicable: Involvement in the active treatment of the patient with behavioral observations of the patient and the patient's response to the treatment. Review of the ongoing treatment process in the context of the treatment plan. Indication of how multi-disciplinary staff members are carrying out the treatment plan. Plans for future interventions and recommendations for revision of the treatment plan. Liaison with other physicians/providers. Progress Note: Stated that he is worried about his TG (elevated 500); his TSH (6.84); but otherwise doing well. Edema noted (podiatry assistant saw him today). Stated that he feels sensation of someone touching him or grabbing him when falling asleep discussed that may be hypnagogic hallucination, or related to somesleep/wake cycle issues due to ativan. Voices are in background, not command and not distressing in nature. MSE: middle aged man, overweight, well groomed and with good eye contact. Accented (southern) speech, wnl. Thought process linear. Thought content neg for any psychotic sx; depressive sx. Mood neutral and affect full and reactive. Insight and judgment adequate. No gross abnormalities; apart from stating he hears voices in the background still. Imp: 41 y/o gentleman w/ hx etoh use d/o, psychotic illness, admitted yesterday w/ worsening paranoia and voices in context of med non adherence and etoh relapse. Improving clinically. Plan: Meds: continue risperdal, lithium dosing. Consider risperdal consta if remains stable over next few days. Medical: edema in feet, eval by podiatry assistant; TG elevated and TSH elevated f/up w/ podiatry assistant. Discussed lithium interacting w/ thyroid he stated that his thyroid was normal prior to starting lithium some time ago, aware of interaction. Discussed Substance: educated about impact of etoh on mental and physical health again. No CIWA doses of ativan since 01/18 BP elevated but other vital are stable. Will taper ativan to 1.5mg qid. Continue taper if remains stable.
--- NOTE | 2017-01-20 17:06 | PN- Medicine Consult ---
See Addendum Assessment/Plan Assessment/Plan Assessment: 41-year-old male straight alcohol abuse, obstructive sleep apnea, schizophrenia, hypothyroidism admitted for hallucination to the psych unit. Has bilateral pedal edema and high blood pressure for which medical follow-up was requested. Plan: 1. Bipolar disorder with psychosis with schizoaffective bipolar disease- continue as per psychiatry 2. Alcohol abuse-continue Ativan 3. Elevated blood pressure-as per the patient his blood pressure is always high when he gets admitted for the treatment of his withdrawal symptoms. He specifically mentions that his pressure is never on the higher side when he sees his PCP, it's always around 120/80. Start hydrochlorothiazide 12.5 mg daily 4. Bilateral pedal edema-as per the patient it is recent. ? Long-standing hypertension v/s alcoholism/subtle cardiomyopathy. We will check echo. 5. Hypothyroidism- currently patient is on 50 g of Synthroid, TSH is 6.8. Check free T4 and total T3. Endocrine consult. Problem List: 1. Schizophrenia 2. Alcohol intoxication 3. Hypothyroidism Subjective Subjective: Patient is comfortable. Is concerned about his pedal edema. Review of Systems Constitutional: Denies: fever, weakness, unexplained weight loss. EENTM: Reports: no symptoms. Cardiovascular: Reports: edema. Respiratory: Reports: no symptoms. Gastrointestinal: Reports: no symptoms. Genitourinary: Reports: no symptoms. Musculoskeletal: Reports: no symptoms. Objective Last 24 Hrs of Vital Signs/I&O Vital Signs Date Time Temp Pulse Resp B/P B/P Pulse O2 O2 Flow FiO2 Mean Ox Delivery Rate 01/20 1619 82 146/82 01/20 1610 82 146/82 01/20 1339 Room Air Room Air 01/20 1209 76 158/94 01/20 1205 76 158/94 01/20 0749 97.5 82 146/92 01/20 0746 97.5 82 146/92 01/19 2212 78 96 01/19 1954 97.4 83 142/94 01/19 1945 97.4 83 142/94 Intake & Output 01/20 1600 01/20 0800 01/20 0000 Intake Total Output Total Balance Patient 302 lb Weight Physical Exam General Appearance: well developed/nourished, no apparent distress, alert, awake , comfortable Head: atraumatic Ears, Nose, Throat: normal pharynx Neck: normal inspection, supple, full range of motion Cardiovascular: edema Respiratory: normal breath sounds, no respiratory distress, lungs clear Peripheral Pulses: 4+ dorsalis pedis (R), 4+ dorsalis pedis (L) Abdomen: normal bowel sounds, soft, non-tender, no organomegaly Extremities: b/l trace pedal edema Neurologic/Psychiatric: awake, alert, oriented x 3, normal gait, 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 Current Medications: Current Medications Sig/Dulce Start time Last Medication Dose Route Stop Time Status Admin Fluticasone 1 SPRAY 1/2H B/BREAKF/DINNER 01/20 0700 01/20 Propionate SADE 1624 Folic Acid 1 MG DAILY 01/18 1811 01/20 PO 0840 Hydrochlorothiazide 12.5 MG DAILY 01/20 1511 01/20 PO 1623 Hydrochlorothiazide 12.5 MG ONCE ONE 01/19 1930 DC 01/19 PO 01/19 1931 2033 Lamotrigine 100 MG DAILY 01/19 1000 01/20 PO 0840 Levothyroxine Sodium 0.05 MG DAILY 01/18 1328 01/20 PO 0607 [place] Carbonate 600 MG BID 01/18 1330 01/20 PO 0840 Lorazepam 1.5 MG FOUR TIMES A DAY 01/20 1400 01/20 PO 1357 Lorazepam 2 MG FOUR TIMES A DAY 01/18 2100 OR 01/20 PO 0840 Lorazepam 2 MG Q1 NEEDED PRN 01/18 1815 PO Lorazepam 1 MG Q1 NEEDED PRN 01/18 1815 01/18 PO 1815 Nicotine 2 MG Q2P PRN 01/18 1845 PO Risperidone 3 MG AT BEDTIME 01/18 2200 01/19 PO 2202 Sodium Chloride 2 SPRAY 7:30 AM, & 4:30 PM 01/19 0730 01/20 SADE 1624 Thiamine HCl 100 MG DAILY 01/18 1811 01/20 PO 0841 Results Last 24 Hrs Lab/Alexandre Results: Laboratory Tests 01/20/17 0418: Hemoglobin A1c Pending, Triglycerides 504 H, Cholesterol 201 H, LDL Cholesterol Direct 109.28 H, LDL Cholesterol, Calc ND, HDL Cholesterol 38 L, Cholesterol/HDL Ratio 5 H, TSH 6.840 H
[2017-01-21] VITALS (8 sets, daily range): BP systolic 145–156; BP diastolic 89–95
--- NOTE | 2017-01-21 08:59 | Cons- Endocrinology ---
General Information and HPI Consulting Request Date of Consult: 01/21/17 Requested By: Dr. Whitt Reason for Consult: Thyroid disease Source of Information: patient Exam Limitations: no limitations History of Present Illness: This 41-year-old male with a known history of a psychiatric disorder came into the hospital because of hearing voices and also drinking alcohol. The patient states that he never had a thyroid disorder in the past until he began lithium in December 2014. After that his thyroid got sluggish. He does have a strong family history of thyroid disease and that his mother has hypothyroidism and his paternal grandmother also has thyroid disease. The patient states she gained 35-40 pounds of weight since beginning with spelled all deep apnea and uses a CPAP machine. He has never been diagnosed with diabetes in the past and has no family history of diabetes. The patient has a mass this degree in science but has been unable to function in various jobs because he would often missed work. 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 The patient is on levothyroxine 50 g daily. He states he does take it first thing in the morning. His most recent labs show a TSH of 6.8 and a free T4 of 0.79 with a total T3 of 1.55. Allergies/Medications Allergies: Coded Allergies: No Known Allergies (01/12/17) Home Med List: Fluticasone Propionate 50 MCG/ACTUATION SPRAY.SUSP 1 SPRAY SADE 1/2H B/BREAKF/ DINNER nasal congestion Take 1 spray intranasally QAM and QPM. Hydrochlorothiazide 25 MG TABLET 25 MG PO DAILY edema Take 1 tablet by mouth daily. Lamotrigine (Lamictal) 100 MG TABLET 100 MG PO DAILY MOOD STABILITY Take 1 tab by mouth daily. Levothyroxine Sodium (Synthroid) 75 MCG TABLET 0.075 MG PO DAILY AC hypothyroidism Take 1 tablet by mouth daily before breakfast. [place] Carbonate 300 MG CAPSULE 600 MG PO BID mood stabilization Take 2 caps (600mg) by mouth twice daily. Melatonin 5 MG TABLET 10 MG PO 2100 insomnia Take 2 tablets by mouth at bedtime. Risperidone (Risperdal) 3 MG TABLET 3 MG PO QHS auditory hallucinations Take 1 tablet by mouth at bedtime/ Risperidone Microspheres (Risperdal Consta) 25 MG/2 ML SYRINGE 25 MG IM Q 2 WEEKS hallucinations/clear thoughts Take 25mg/2ml IM every 2 weeks. Last administered: 01/24/17 @ 11:25AM. Sodium Chloride ([place] Sea) 0.65 % SPRAY 2 SPRAY SADE 7:30 AM, & 4:30 PM nasal congestion Take 2 spray intranasally QAM and QPM. Past History Travel History Traveled to [place] past 21 day No Medical History Neurological: NONE EENT: NONE Cardiovascular: NONE Respiratory: obstructive sleep apnea Gastrointestinal: NONE Hepatic: NONE Renal: NONE Musculoskeletal: NONE Psychiatric: schizo affective disorder, schizophrenia, BIPOLAR 1 Endocrine: hypothyroidism Blood Disorders: NONE Cancer(s): NONE Surgical History Surgical History: 1 Family History Relations & Conditions If Any: Relation not specified for: *No pertinent family history Psychosocial History Where Do You Live? Home Who Do You Live With? spouse (girl friend) Services at Home: None Primary Language: Nepali Smoking Status: Never Smoked ETOH Use: occasional use Illicit Drug Use: denies illicit drug use Living Will? no Functional Ability ADLs Independent: dressing, eating, toileting, bathing. Ambulation: independent IADLs Independent: shopping, housework, finances, food prep, telephone, transportation , medication admin. Exam & Diagnostic Data Last 24 Hrs of Vital Signs/I&O 120/84 Physical Exam General Appearance: alert, awake, comfortable Head: normal appearance Neck: thyroid slightly enlarged Respiratory: normal breath sounds Cardiovascular: regular rate/rhythm Gastrointestinal: normal bowel sounds, soft Extremities: normal inspection Skin: intact Assessment/Plan Assessment/Plan This patient developed hypothyroidism after beginning lithium therapy. He also has a strong family history of thyroid disease. In addition he has gained tremendous amounts of weight and needs to be checked for metabolic syndrome. Suggests we need to check his thyroid antibodies and the thyroid ultrasound. We would like to increase his levothyroxin to 75 g daily. He should have repeat lab work including a fasting blood sugar, fasting insulin level, hemoglobin A1c, fasting lipid profile, Consult Acknowledgment - Thank you for your consult request.
--- NOTE | 2017-01-21 14:22 | CP SOUTH PROGRESS NOTE PSYCH ---
Psych (Inpt) Progress Note Progress Note Include the following elements, when applicable: Involvement in the active treatment of the patient with behavioral observations of the patient and the patient's response to the treatment. Review of the ongoing treatment process in the context of the treatment plan. Indication of how multi-disciplinary staff members are carrying out the treatment plan. Plans for future interventions and recommendations for revision of the treatment plan. Liaison with other physicians/providers. Progress Note: I discussed this patient's progress to date, current mental status, treatment process in the context of the treatment plan, and discharge planning with staff/ team in the daily morning inpatient team meeting. I also met with the patient myself in individual session. S: "I feel safe here." O: Current Medications Sig/Dulce Start time Last Medication Dose Route Stop Time Status Admin Fluticasone 1 SPRAY 1/2H B/BREAKF/DINNER 01/20 0700 01/21 Propionate SADE 0625 Folic Acid 1 MG DAILY 01/18 1811 01/21 PO 0813 Hydrochlorothiazide 12.5 MG DAILY 01/20 1511 01/21 PO 0813 Lamotrigine 100 MG DAILY 01/19 1000 AC 01/21 PO 0813 Levothyroxine Sodium 0.05 MG DAILY AC 01/18 1328 01/21 PO 0625 [place] Carbonate 600 MG BID 01/18 1330 01/21 PO 0813 Lorazepam 0.5 MG 0800,01/25 0800 AC PO 01/25 2001 Lorazepam 0.5 MG 0800,1200,1600,01/24 0800 AC PO 01/24 2001 Lorazepam 1 MG 0800,1400,01/23 1400 CAN PO 01/24 0801 Lorazepam 1 MG 0800,1400,01/23 0800 AC PO 01/23 2001 Lorazepam 1 MG 0800,1200,1600,01/22 0800 AC PO 01/22 2001 Lorazepam 1.5 MG 1400,01/21 1400 AC 01/21 PO 01/21 2001 1422 Lorazepam 1.5 MG .STK-MED ONE 01/20 1839 DC PO 01/20 1840 Lorazepam 1.5 MG FOUR TIMES A DAY 01/20 1400 DC 01/21 PO 0813 Lorazepam 2 MG Q1 NEEDED PRN 01/18 181 AC PO Lorazepam 1 MG Q1 NEEDED PRN 01/18 1815 AC 01/21 PO 0248 Melatonin 5 MG 2100 01/21 2100 UNVr PO Nicotine 2 MG Q2P PRN 01/18 184 AC PO Risperidone 3 MG AT BEDTIME 01/18 2200 AC 01/20 PO 2146 Sodium Chloride 2 SPRAY 7:30 AM, & 4:30 PM 01/19 07 01/21 SADE 0811 Thiamine HCl 100 MG DAILY 01/18 181 AC 01/21 PO 0813 Vital Signs Date Time Temp Pulse Resp B/P B/P Pulse O2 O2 Flow FiO2 Mean Ox Delivery Rate 01/21 1413 Room Air Room Air 01/21 1244 78 156/95 01/21 1243 78 156/95 01/21 1027 Room Air Room Air 01/22 0814 97.6 76 145/89 01/21 813 97.6 76 145/89 01/21 2004 97.6 80 160/94 01/20 1959 97.6 80 160/94 01/20 1619 82 146/82 01/20 1610 82 146/82 Lab ALT 129 U/L H 01/17/17 2150 AST 96 U/L H 01/17/17 2150 Albumin 4.1 g/dL 01/17/17 2150 Albumin/Globulin Ratio 1.4 % 01/17/17 2150 Alkaline Phosphatase 42 U/L 01/17/17 2150 Anion Gap 16 01/17/17 2150 BUN 17 mg/dL 01/17/17 2150 BUN/Creatinine Ratio 14.2 % 01/17/17 2150 Calcium 9.6 mg/dL 01/17/17 2150 Carbon Dioxide 24 mmol/L 01/17/17 2150 Chloride 103 mmol/L 01/17/17 2150 Cholesterol 201 MG/DL H 01/20/17 0418 Cholesterol/HDL Ratio 5 % H 01/20/17 0418 Creatinine 1.2 mg/dL 01/17/17 2150 Estimated GFR > 60 ml/min 01/17/17 2150 Free T4 0.79 ng/dL 01/20/17 0418 Globulin 3.0 gm/dL 01/17/17 2150 Glucose 100 mg/dL H 01/17/17 2150 HDL Cholesterol 38 mg/dL L 01/20/17 0418 Hemoglobin A1c 5.1 % 01/20/17 0418 LDL Cholesterol Direct 109.28 mg/dL H 01/20/17 0418 LDL Cholesterol, Calc ND mg/dL 01/20/178 Potassium 4.1 mmol/L 01/17/170 Sodium 143 mmol/L 01/17/172149 TSH 6.840 uIU/mL H 01/20/178 Total Bilirubin 0.6 mg/dL 01/17/172149 Total Protein 7.1 g/dL 01/17/172149 Total T3 1.55 ng/mL 01/20/178 Triglycerides 504 mg/dL H 01/20/178 Absolute Basophils 0.1 /CUMM 01/17/17 2150 Absolute Eosinophils 0.4 /CUMM 01/17/17 215 Absolute Granulocytes 5.6 /CUMM 01/17/172149 Absolute Lymphocytes 2.8 /CUMM 01/17/172149 Absolute Monocytes 1.0 /CUMM H 01/17/172149 Basophils % 1.2 % 01/17/172149 Eosinophils % 4.2 % 01/17/172149 Gran % 56.4 % 01/17/172149 Hct 45.8 % 01/17/172149 Hgb 15.8 G/DL 01/17/172149 Lymphocytes % 28.5 % 01/17/170 MCH 29.3 PG 01/17/172149 MCV 84.8 FL 01/17/170 MPV 7.0 FL L 01/17/172149 Monocytes % 9.7 % H 01/17/172149 PUBS MCHC 34.6 G/DL 01/17/172149 Plt Count 227 /CUMM 01/17/170 RBC 5.40 /CUMM 01/17/170 RDW 14.4 % 01/17/172149 WBC 9.9 /CUMM 01/17/17 2150 [place] 0.4 mmol/L L 01/17/172149 Serum Alcohol 147.0 MG/DL 01/17/172149 A: Chart, progress notes, labs, VS, CIWA and medication list were reviewed. BP remained elevated; all other VS stable. CIWA over last 24 hours: 0-1-0-0-0. No evidence of diaphoresis, tremors, n/v, WIN, or tactile hallucinations. Elevated LFTs, TG, TSH and subtherapeutic Li level (0.4) noted on admission. Patient is a 41-year old , male who was admitted to [facility] on 01/19 from the emergency department. Patient had presented to ED on 01/18/17 d/t command auditory hallucinations telling him to kill himself; visual hallucinations, and paranoia over the "last two weeks" of his neighbor spying on him and of his home electrical outlets being tapped. Since then, the patient reported drinking approx. 1 pint of liquor daily to mute the "voices". He denied a history of withdrawal seizures or DTs, "just sweating." He reported being in outpatient psychiatric tx at [facility]; was last prescribed [place] 600mg BID, Lamictal 100mg daily, and an unknown dose of Seroquel (per med claim hx 50mg BID). Patient reported medication adherence to prescribed medications since admission to [facility]. He shared that Seroquel "doesn't work," that Risperdal has been effective for him in the past. He described his auditory hallucinations in three levels: level 1 (manageable), level 2 (antagonistic), level 3 (belligerent). He described having "level 3" voices prior to hospitalization; now reports AH have reduced to "level 1." Denied voices were command in nature, or distressing in nature. Stated hearing intermittent voices throughout the day, denied voices were constant. Related that he heard a voice last night saying "hey, hey, go left, go left," which he identified as someone playing football. He denied VH and TH. He denied paranoid ideation. He also demonstrated awareness into his paranoia prior to arrival was not in fact real. There was no evidence of delusions. Thought process was linear, organized. Cognition was grossly intact. He denied passive and active suicidal ideation, plans and intent. He denied homicidal ideation. Reported his appetite was good. Reported difficulty falling asleep. Denied further incidence of the sensation of someone touching him or grabbing him when falling asleep (see yesterday's MD progress note). In the past , reported positive efficacy with melatonin which he was agreeable to retrial. Patient appeared stated age. Appeared mildly disheveled; however clean. Showed appropriate eye contact. Speech was accented (Southern), normal i nrate, tone and volume. Mood "pretty good." Affect full-range, non-labile. Thought process was organized, goal-directed. Dressed casually and comfortably in own clothes. Denied PI, VH, TH. Reported intermittent, vague, non-command voices. Insight and judgement fair. Denied SI/HI. Patient was started on HCTZ 12.5mg daily secondary to b/l le edema. Will continue monitoring Li level while on HCTZ given increased risk of Li toxicity. Informed patient of increased risk of Li toxicity while on HCTZ. He was agreeable to remain on tx. Reviewed the symptoms of Li toxicity, including nausea, diarrhea, vomiting, abd pain, tremors, slurred speech, increased reflexes, Szs. Patient verbalized understanding of med education; he verbalized that if symptoms occured he would notify nursing staff immediately. Patient reported tolerating all medications well; denied untoward medication effects. Will continue as prescribed. P: 1. Continue monitoring patient on unit for mood and psychosis. 2. Continue CIWA protocol for etoh w/d and ativan taper/prns as ordered. 3. Per sack department supervisor Dr. San, HCTZ increased from 12.5mg daily to 25mg daily for b/l le edema. 4. Echocardiogram in processy. Results pending. Dr. San to follow. 4. Per Dr. Mahmood from vice president underwriting, thyroid US in process; thyroid antibodies ordered. Rpt lipid panel, fasting glucose, and insulin level ordered for tomorrow morning per Dr. Mahmood's recommendation. Endocrine to continue to follow. 5. Continue current psychiatic medications for now; Li level scheduled on at 6AM. 6. Dispo planning per primary team - will need to schedule family meeting with . 7. Start Melatonin 5mg QHS for sleep induction/insomnia. 8. Obtain collateral from [facility].
--- NOTE | 2017-01-21 14:38 | Event Note ---
Event Note Event Note: Follow up of LE eema and BP. B still high and 1+ edema B/L LE. Recommend: Increase HCTZ to 25 mg daily and keep legs elevated while sitiing and laying. Follow up ECHO> THyroif Mx per endo.
--- NOTE | 2017-01-21 15:13 | ULTRASOUND REPORT ---
EXAMINATION: US THYROID CLINICAL INFORMATION: Stuart's thyroiditis. Hypothyroidism. COMPARISON: None TECHNIQUE: Linear transducer grayscale and color Doppler examination with attention to the region of the thyroid. FINDINGS: SIZE: Measurements of the thyroid lobes and nodules are given in sagittal, anteroposterior and transverse dimensions respectively. Right Thyroid Lobe: 5.3 x 2.1 x 2.1 cm, volume 12.2 mL. Left Thyroid Lobe: 4.5 x 2.2 x 1.3 cm, volume 6.7 mL. Isthmus: 0.5 cm in maximum AP dimension. PARENCHYMA: The gland echotexture is mildly heterogeneous. Thyroid vascularity is normal. RIGHT THYROID LOBE: No nodules. ISTHMUS: No nodules. LEFT THYROID LOBE: No nodules. NODES: No lymphadenopathy is seen in the tissue surrounding the thyroid gland. IMPRESSION: Mildly heterogeneous thyroid gland demonstrating no discrete thyroid nodules.
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
--- NOTE | 2017-01-21 17:22 | SOCIAL WORKER TX PLAN PSYCH ---
Treatment Plan - Please Document: - Evidence that there is ongoing collaboration between - the patient and the interdisciplinary team, - including the patient's active participation and - responsibility for engaging in the treatment regimen, - and that the treatment plan is individualized and - relevant to the patient's conditions. - Treatment plan should reflect documentation indicating - that all active therapeutic efforts are included. Strengths/Capabilities: Pt has a supportive significant other Ammy Cano [phone], motivated for treatment. Patient Identified Trmt Goals: "I need to get on medication to help with voices" Discharge Plan: [facility]- dual track Problem/Goals #1 Problem #1: psychosis Goal (Short Term): Patient will explore medication options to help with auditory hallucinations Goal (Mcfp): Patient will be able to verbalize that auditory hallucinations have improved or diminished Interventions: patient will be offered medication management with the GRINDER SET UP OPERATOR CENTERLESS, groups on symptom management, coping skills, focus group, goals group, relaxation skills. Plastic Press Molder will check in and assess psychosis, discuss strengths goals, compliance with medication. sheetmetal trades worker will hold family meeting and assist with aftercare planning. Problem/Goals #2 Problem #2: alcohol dependence/abuse Goal (Short Term): Patient will identify triggers to drinking alcohol Goal (Hvac Estimator): patient will identify supports to reframe from alcohol use. Interventions: Patient will be offered groups on relapse prevention, AA, coping skills. Plastic Press Molder will discuss triggers to use. Discuss AA and aftercare plans to support sobriety. DSM5/PS Stressors/Medical Prob Diagnosis' (DSM 5, Stressors, Medical): see above Current GAF: 25 Treatment Team - Responsibilities of members of the treatment team include: - Medication Management- MD or GRINDER SET UP OPERATOR CENTERLESS - Medication Administration and Monitoring- Nurse - Group Therapy- Occupational Therapist - 1:1 Therapy,Disch Planning,family involvement-Plastic Press Molder
--- NOTE | 2017-01-21 17:22 | SOCIAL WORKER PROG NOTE PSYCH ---
Social Work Progress Note Progress Note Loki talked about hearing voices and how he can usually function with voices that are "benign" on a regular basis, but he was starting to hear some very distressing voices. He described the pattern of being on and off Risperdal for the past couple of years. He has good outcomes with his symptoms when he is on Risperdal, but he is concerned and bothered by the side effects such as weight gain and sexual dysfunction. He talked about drinking when he is off the Risperdal and experiencing bad voices. He is currently engaged to a woman named Ammy. They have been together for 4 years and he is really vested in their relationship and wanting to make things work. They currently live together in [place]. He is open to having her in for a family meeting. 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 Loki's fiance Ammy called to schedule a family meeting. She is available to come in tomorrow at 11am.
--- NOTE | 2017-01-21 20:24 | ECHOCARDIOGRAM REPORT ---
HARINDER WHITEHEAD Age: 41 : 1975 Gender: M Exam Date: 01/21/2017 10:40 Exam Location: [facility] Ht (in): 71 Wt (lb): 301 BSA: 2.68 BP: 160 / 94 Ordering Physician: LILIANA MEJIAS MD Referring Physician: LILIANA MEJIAS MD Technologist: Isael Robison [facility] Room Number: B3-02 Indications: HYPERTENSION Rhythm: Sinus Technical Quality: Fair, Technically difficult study FINDINGS Left Ventricle Normal size left ventricle. No obvious regional wall motion abnormalities. Normal left ventricular ejection fraction estimated at 65-70%. Right Ventricle Right ventricle not well visualized, grossly normal. Right Atrium Right atrium not well visualized, grossly normal. Left Atrium Left atrial size at the upper limits of normal. Mitral Valve Structurally normal mitral valve. Aortic Valve Trileaflet aortic valve. Focal thickening of the aortic valve cusps. No aortic stenosis. No aortic regurgitation. Tricuspid Valve Tricuspid valve not well visualized, grossly normal. Physiologic tricuspid regurgitation. Pulmonic Valve Pulmonic valve not well visualized, grossly normal. Pericardium No pericardial effusion. Great Vessels Normal size aortic root and proximal ascending aorta. CONCLUSIONS 1. This was a technically difficult examination due to the patient's body habitus. 2. Minimal aortic sclerosis is present with no valvular stenosis or insufficiency. 3. The mitral valve appears anatomically normal. 4. There is no pericardial fluid detected on this examination. 5. The left ventricular chamber size and systolic function appear normal with an ejection fraction of at least 70% and no resting wall motion abnormalities. 6. A false tendon is present in the left ventricular chamber. 7. The right heart structures are grossly normal but were not optimally assessed. Minimal tricuspid insufficiency is noted. The RV systolic pressure was not optimally assessed. Ekaterina Hawk M.D. (Electronically Signed) Final Date: 21 January 2017 20:24 MEASUREMENTS (Male / Female) Normal Values 2D ECHO LV Diastolic Diameter PLAX 4.9 cm 4.2 - 5.9 / 3.9 - 5.3 cm LV Systolic Diameter PLAX 2.8 cm 2.1 - 4.0 cm LV Fractional Shortening PLAX 42.9 % 25 - 46 % LV Ejection Fraction 2D Teich 73.8 % IVS Diastolic Thickness 1.1 cm LVPW Diastolic Thickness 1.0 cm LV Relative Wall Thickness 0.4 RV Internal Dim ED PLAX 4.1 cm 1.9 - 3.8 cm LVOT Diameter 2.3 cm Aortic Root Diameter 3.0 cm LA Systolic Diameter LX 3.9 cm 3.0 - 4.0 / 2.7 - 3.8 cm LA Volume 46.0 cm 18 - 58 / 22 - 52 cm Ascending Aorta Diameter 3.5 cm DOPPLER AV Peak Velocity 175.0 cm/s AV Peak Gradient 12.3 mmHg AV Mean Velocity 109.0 cm/s AV Mean Gradient 6.0 mmHg AV Velocity Time Integral 31.8 cm LVOT Peak Velocity 114.0 cm/s LVOT Peak Gradient 5.2 mmHg LVOT Mean Velocity 74.6 cm/s LVOT Mean Gradient 3.0 mmHg LVOT Velocity Time Integral 23.5 cm LVOT Stroke Volume 97.6 cm AV Area Cont Eq vti 3.1 cm AV Area Cont Eq pk 2.7 cm MV Peak Velocity 75.8 cm/s MV Peak Gradient 2.3 mmHg MV Mean Velocity 47.9 cm/s MV Mean Gradient 1.0 mmHg Mitral E Point Velocity 72.1 cm/s Mitral A Point Velocity 73.1 cm/s Mitral E to A Ratio 1.0 MV PHT Velocity 73.3 cm/s MV Deceleration [place] 444.0 cm/s MV Pressure Half Time 49.5 ms MV Area PHT 4.4 cm MV Deceleration Time 282.0 ms PV Peak Velocity 109.0 cm/s PV Peak Gradient 4.8 mmHg PV Mean Velocity 79.7 cm/s PV Mean Gradient 3.0 mmHg PV Velocity Time Integral 19.8 cm LV E' Lateral Velocity 8.6 cm/s Mitral E to LV E' Lateral Ratio 8.4 LV E' Septal Velocity 6.9 cm/s Mitral E to LV E' Septal Ratio 10.4
[2017-01-22] VITALS (8 sets, daily range): BP systolic 139–151; BP diastolic 64–86
--- NOTE | 2017-01-22 10:53 | CP SOUTH PROGRESS NOTE PSYCH ---
Psych (Inpt) Progress Note Progress Note Include the following elements, when applicable: Involvement in the active treatment of the patient with behavioral observations of the patient and the patient's response to the treatment. Review of the ongoing treatment process in the context of the treatment plan. Indication of how multi-disciplinary staff members are carrying out the treatment plan. Plans for future interventions and recommendations for revision of the treatment plan. Liaison with other physicians/providers. Progress Note: I discussed this patient's progress to date, current mental status, treatment process in the context of the treatment plan, and discharge planning with staff/ team in the daily morning inpatient team meeting. I also met with the patient myself in individual session. S: "I think the medication is making me eat more, I've been so hungry." O: Current Medications Sig/Dulce Start time Last Medication Dose Route Stop Time Status Admin Fluticasone 1 SPRAY 1/2H B/BREAKF/DINNER 01/20 0700 01/22 Propionate SADE 0614 Folic Acid 1 MG DAILY 01/18 1811 01/22 PO 0949 Hydrochlorothiazide 25 MG DAILY 01/22 1000 01/22 PO 0949 Hydrochlorothiazide 12.5 MG ONCE ONE 01/21 1445 GA 01/21 PO 01/21 1446 1629 Hydrochlorothiazide 12.5 MG DAILY 01/20 1511 GA 01/21 PO 0813 Lamotrigine 100 MG DAILY 01/19 1000 01/22 PO 0949 Levothyroxine Sodium 0.075 MG DAILY 01/22 0700 01/22 PO 0614 Levothyroxine Sodium 0.05 MG DAILY 01/18 1328 GA 01/21 PO 0625 [place] Carbonate 600 MG BID 01/18 1330 01/22 PO 0949 Lorazepam 0.5 MG 0800,01/25 0800 PO 01/25 2001 Lorazepam 0.5 MG 0800,1200,1600,01/24 0800 [facility] 01/24 2001 Lorazepam 1 MG 0800,1400,01/23 0800 PO 01/23 2001 Lorazepam 1 MG 0800,1200,1600,01/22 0800 01/22 PO 01/22 2001 0949 Lorazepam 0.5 MG .STK-MED ONE 01/21 1415 [facility] 01/21 1416 Lorazepam 1.5 MG 1400,01/21 1400 DC 01/21 PO 01/21 Lorazepam 2 MG Q1 NEEDED PRN 01/18 1815 AC PO Lorazepam 1 MG Q1 NEEDED PRN 01/18 1815 AC 01/21 PO 0248 Melatonin 5 MG 2100 01/21 2100 AC 01/21 PO 2239 Nicotine 2 MG Q2P PRN 01/18 184 AC PO Risperidone 3 MG AT BEDTIME 01/18 2200 AC 01/21 PO 2240 Sodium Chloride 2 SPRAY 7:30 AM, & 4:30 PM 01/19 0730 AC 01/22 SADE 0950 Thiamine HCl 100 MG DAILY 01/18 1811 AC 01/22 PO 0949 Vital Signs Date Time Temp Pulse Resp B/P B/P Pulse O2 O2 Flow FiO2 Mean Ox Delivery Rate 01/23 752 97.0 73 141/78 01/22 0747 97.0 73 141/78 01/21 2007 98.0 80 148/92 01/21 2005 98.0 80 148/92 01/21 1610 81 152/90 01/21 1609 81 152/90 01/21 1413 Room Air Room Air 01/21 1244 78 156/95 01/21 1243 78 156/95 Lab Cholesterol 191 MG/DL 01/22/17 0435 Cholesterol/HDL Ratio 5 % H 01/22/17 0435 Free T4 0.73 ng/dL 01/22/17 0435 Glucose 104 mg/dL H 01/22/17 0435 HDL Cholesterol 38 mg/dL L 01/22/17 0435 Insulin Level 38.5 mIU/mL H 01/22/17 0435 LDL Cholesterol, Calc 107 mg/dL 01/22/17 0435 TSH 5.330 uIU/mL H 01/22/17 0435 Total T3 1.53 ng/mL 01/22/17 0435 Triglycerides 232 mg/dL H 01/22/17 0435 Thyroglobulin Antibody 19 U/mL 01/22/17 0435 Thyroid Peroxidase Ab 30 U/mL 01/22/17 0435 A: Chart, progress notes, labs, VS, CIWA, and medication list were reviewed. Last 24 hours CIWA: 0-0-0-0-0. Tolerating Ativan taper well. Above new labs results reviewed. Endocrine to follow. BP better controlled on increased dose of HCTZ 25mg daily. Echocardiogram and Thyroid US reviewed. Please see results in chart. Patient shared today that his appetite has been increased since starting Risperdal, however, he remains committed to this medication as it has been the most effective for him in the past in combatting his auditory hallucinations. Educated patient on the importance of diet and exercise, which he is in agreement to adhering to. Also, reintroduced the option of switching to Risperdal MARTINEZ to remove the barrier of medication nonadherence. He stated he would need to further consider this option and requested to discuss this over with his Ammy espinosa. He reported "mild, background" voices, non-command and non-distressing in nature. He denied visual hallucinations and paranoid thoughts. Thought process was linear, organized. Thought content was appropriate. Cognition grossly intact. He denied passive and active suicidal ideation, plans, intent. Denied homicidal ideation. He denied acute symptoms of anxiety/depression. Eye contact was appropriate. Speech was normal in rate, tone and volume. Affect reactive, non-labile. Mood euthymic. AIMS=0. No evidence of movement disorder. Appetite increased. Sleep poor. Met with patient today together with his Ammy espinosa, and Leisa Feng LCSW. Treatment progress to date, medication regimen, level of safety, and discharge planning were reviewed and discussed. Ammy was in agreement that the patient had done best on Risperdal in the past and was supportive of the idea of switching to MARTINEZ. Patient shared that he needed more time to consider switching to a long acting injectable. Was agreeable to attend Dual IOP tx post-discharge which Ammy was in support of. Please see Leisa Feng LCSW, note for additional information regarding family meeting. P: 1. Continue current medications. 2. Continue monitoring on CIWA protocol for etoh withdrawal/Ativan taper & prns. 3. Monitor for safety, mood and psychosis on unit. 4. Encourage milieu therapy. 5. Continue providing education on Risperdal MARTINEZ. 6. Endocrine to follow for thyroid management. 7. Dispo planning per primary team. 8. Increase Melatonin to 10mg QHS for DFA/insomnia.
--- NOTE | 2017-01-22 11:49 | IP INCIDENTAL NOTE PSYCH ---
Incidental Note Notation: left for patient's EDGER AUTOMATICChristy, at [facility] in [place], [place] today at 11:48AM. Requested a return phone call to obtain collateral information.
--- NOTE | 2017-01-22 13:09 | SOCIAL WORKER PROG NOTE PSYCH ---
Social Work Progress Note Progress Note Loki's significant other Ammy came in for a meeting this morning. Marie Lockhart APRN was also in this meeting. We talked alot about medication and the concerns that he has had over side effects from the Risperdal. Loki came to the conclusion during the meeting to remain on the Risperdal because it helps control his symptoms best. He is considering the Risperdal Consta Injection. His fiance Ammy is very supportive and very involved in his care. She is a nurse and acknowledged that she is controlling at times when it comes to Loki and his care. She stated she not only likes to know what Apollo is doing, but likes to be on top of his providers as well. Apollo is very interested in learning/ working on how he can control his eating. He is very concerned about weight gain. He reported not sleeping well last night and that he usually wakes up in the middle of the night wanting to have a full meal. Loki will be having an endocrine workup while he is here to see if his thyroid is functioning ok. Talked about ruling some medical concerns out before he starts seeking other medications to curb his appetite. Discussed follow up post discharge outpatient vs. IOP. Loki is agreeable to coming to dual IOP, but is concerned about transportation. I mentioned looking into [facility]. I will call and see if he is eligible. Discussed possible discharge for Saturday.
[2017-01-23] VITALS (9 sets, daily range): BP systolic 133–146; BP diastolic 79–96
--- NOTE | 2017-01-23 07:35 | CP SOUTH PROGRESS NOTE PSYCH ---
Psych (Inpt) Progress Note Progress Note Include the following elements, when applicable: Involvement in the active treatment of the patient with behavioral observations of the patient and the patient's response to the treatment. Review of the ongoing treatment process in the context of the treatment plan. Indication of how multi-disciplinary staff members are carrying out the treatment plan. Plans for future interventions and recommendations for revision of the treatment plan. Liaison with other physicians/providers. Progress Note: I discussed this patient's progress to date, current mental status, treatment process in the context of the treatment plan, and discharge planning with staff/ team in the daily morning inpatient team meeting. I also met with the patient myself in individual session. S: "I had a better night's rest last night." O: Laboratory Tests 01/23 0310 Toxicology [place] (0.6 - 1.2 mmol/L) 0.5 L Current Medications Sig/Dulce Start time Last Medication Dose Route Stop Time Status Admin Fluticasone 1 SPRAY 1/2H B/BREAKF/DINNER 01/20 0700 01/23 Propionate SADE 0647 Folic Acid 1 MG DAILY 01/18 1811 01/22 PO 0949 Hydrochlorothiazide 25 MG DAILY 01/22 1000 AC 01/22 PO 0949 Lamotrigine 100 MG DAILY 01/19 1000 AC 01/22 PO 0949 Levothyroxine Sodium 0.075 MG DAILY AC 01/22 0700 AC 01/23 PO 0647 [place] Carbonate 600 MG BID 01/18 1330 AC 01/22 PO 2151 Lorazepam 0.5 MG 0800,01/25 0800 AC PO 01/25 2001 Lorazepam 0.5 MG 0800,1200,1600,01/24 0800 PO 01/24 2001 Lorazepam 1 MG 0800,1400,01/23 0800 AC PO 01/23 2001 Lorazepam 1 MG 0800,1200,1600,01/22 0800 MN 01/22 PO 01/22 Lorazepam 2 MG Q1 NEEDED PRN 01/18 181 AC PO Lorazepam 1 MG Q1 NEEDED PRN 01/18 181 AC 01/21 PO 0248 Melatonin 10 MG 01/23 AC PO Melatonin 5 MG 01/21 2100 MN 01/22 PO 215 Nicotine 2 MG Q2P PRN 01/18 1845 AC PO Risperidone 3 MG AT BEDTIME 01/18 2200 AC 01/22 PO 2151 Sodium Chloride 2 SPRAY 7:30 AM, & 4:30 PM 01/19 0730 AC 01/22 SADE 0950 Thiamine HCl 100 MG DAILY 01/18 181 01/22 PO 0949 Trazodone HCl 50 MG AT BEDTIME NEED.. 01/23 0745 UNVr PO Vital Signs Date Time Temp Pulse Resp B/P B/P Pulse O2 O2 Flow FiO2 Mean Ox Delivery Rate 01/23 0258 62 16 133/84 01/22 2041 97.6 68 16 139/64 01/22 2035 97.6 68 139/64 01/22 1558 73 151/86 01/22 1555 73 151/86 01/22 1214 76 144/78 01/22 1212 76 144/78 01/22 0752 97.0 73 141/78 01/22 0747 97.0 73 141 A: Chart, progress notes, labs, CIWA, VS and medication list were reviewed. Li level resulted subtherapeutic at 0.5mmoml/L likely related to being drawn at 3AM. Vital signs within notmal limits. Not scoring on CIWA. Met with patient this morning. Presented alert and oriented x 3. Speech was normal in rate, tone and volume. Eye contact was appropriate. Appetite remains increased. Mood was "fine." Affect was full-range, non-labile. He denied acute symptoms of anxiety or depression. Denied passive/active suicidal ideation, plans, intent. Denied homicidal ideation. Denied visual and tactile hallucinations. Reported intermittent "benign voices in the background," denied these were command or distressing in nature. Denied these were present now. Thought process was linear and goal-directed; thought content was appropriate. Congition was grossly intact. He shared that he slept better than during prior nights here. Reported sleeping approximately "5 hours," awakening once and being able to return to sleep. Reported at home he sleeps approximately 2-3 hours nightly. Reviewed the importance of sleep; asked if he had ever been on helpful sleep medications. Reported previously being on Trazodone 100mg QHS which made him feel like a "zombie" but worked. He was agreeable to trialing Trazodone 50mg prn for insomia. He reported that he would like to switch from Risperdal oral formulation to MARTINEZ formulation while inpatient. Informed patient that he would need to continue oral formulation for the first 2 weeks after recieving MARTINEZ, and then oral formulation would be discontinued and he would remain on the MARTINEZ. He verbalized understanding and was agreeable. Reviewed the risk of akathesia on Risperdal. Patient verbalized understanding and was agreeable to trial. He reported tolerating all medications well and denied untoward medication effects. He remains agreeable to continue taking them. Spoke to pharmacist Talia from inpatient pharmacy ([phone]); she confirmed starting dose is 25mg IM and that patient would remain on scheduled 3mg Risperdal QHS x 2 weeks following. P: 1. Continue monitoring for safety, mood and psychosis. 2. Continue current medications. 3. Start Risperdal Consta 25mg IM [id number] tomorrow morning. 4. Start Trazodone 50mg prn for insomnia. May repeat x 1. 5. Increase Melatonin from 5mg to 10mg QHS for sleep induction. 6. Continue Ativan taper as ordered. 7. Endocrine to follow for thyroid management.
--- NOTE | 2017-01-23 09:07 | SOCIAL WORKER PROG NOTE PSYCH ---
Social Work Progress Note Progress Note Called the number provided by [facility] yesterday for [facility]. Loki could not remember the name of the agency providing services. He is getting daily sas administrator. I found out that it is spring and I spoke with Amada today. Amada shared that they come out once a day M-F and that he hadn't rec'd services on the weekend, because Ammy (jesús) is there and helps with his meds. I told them he will most likely be discharging on Saturday and we will resume services. Their Fax number is [phone]. Loki is doing well today. He said he slept better. Still hearing what he calls "benign " voices. Presented as a little tired, he yawned multiple times while meeting with me. He shared that he decided to get the IM of the Risperdal. He mentioned maybe not needing the VNS services anymore because he doesn't have a problem taking his [place]. I told him to keep the VNS services in place as they are right now and that it is always good to have more and then it can be decreased as time goes on. Reminded him that they will also give him his injection. Found out today that [facility] would like a letter sent about why he is changing services from [place] to [place] for IOP. I will follow up with this further tomorrow, as I was not the one that made the call. He said he never received transportation from [facility], but they provided him bus passes when he was attending IOP in [place]. We talked about his desire to be outside more often. He enjoys nature and doing things outside like fishing. He hasn't done alot of that recently. Encouraged him to make it a goal to get out and enjoy the outdoors. He said that next year his fibob and him are planning to move to [facility]. She has family and friends there. Planning discharge for Saturday. Talked about the IOP schedule. He isn't sure how the schedule will work out with his new job at home. He is engaged in groups here and seems to be getting along with others. Mood and affect seem appropiate.
[2017-01-24] VITALS (8 sets, daily range): BP systolic 138–144; BP diastolic 84–92
--- NOTE | 2017-01-24 13:02 | CP SOUTH PROGRESS NOTE PSYCH ---
Psych (Inpt) Progress Note Progress Note Progress Note: I discussed this patient's progress to date, current mental status, treatment process in the context of the treatment plan, and discharge planning with staff/ team in the daily morning inpatient team meeting. I also met with the patient myself in individual session. SUBJECTIVE: "When I get stressed, I get delusional." OBJECTIVE: Current Medications Sig/Dulce Start time Last Medication Dose Route Stop Time Status Admin Fluticasone 1 SPRAY 1/2H B/BREAKF/DINNER 01/20 0700 01/24 Propionate SADE 0634 Folic Acid 1 MG DAILY 01/18 181 01/24 PO 0858 Hydrochlorothiazide 25 MG DAILY 01/22 1000 01/24 PO 0859 Lamotrigine 100 MG DAILY 01/19 1000 01/24 PO 0858 Levothyroxine Sodium 0.075 MG DAILY AC 01/22 0700 AC 01/24 PO 0634 [place] Carbonate 600 MG BID 01/18 1330 01/24 PO 0858 Lorazepam 0.5 MG 0800,01/25 0800 AC PO 01/25 2001 Lorazepam 0.5 MG 0800,1200,1600,01/24 0800 AC 01/24 PO 01/24 2001 0858 Lorazepam 1 MG 0800,1400,01/23 0800 DC 01/23 PO 01/23 2001 2036 Lorazepam 2 MG Q1 NEEDED PRN 01/18 1815 PO Lorazepam 1 MG Q1 NEEDED PRN 01/18 181 AC 01/21 PO 0248 Melatonin 10 MG 2100 01/23 2100 01/23 PO 2123 Nicotine 2 MG Q2P PRN 01/18 1845 AC PO Risperidone 25 MG Q 2 WEEKS 01/24 1000 AC 01/24 IM 1125 Risperidone 3 MG AT BEDTIME 01/18 2200 AC 01/23 PO 2123 Sodium Chloride 2 SPRAY 7:30 AM, & 4:30 PM 01/19 0730 01/24 SADE 0634 Thiamine HCl 100 MG DAILY 01/18 181 01/24 PO 0858 Trazodone HCl 50 MG AT BEDTIME NEED.. 01/23 2200 AC PO Vital Signs Date Time Temp Pulse Resp B/P B/P Pulse O2 O2 Flow FiO2 Mean Ox Delivery Rate 01/24 1246 68 141/92 01/24 1245 68 141/92 01/24 0804 96.8 98 138/84 01/24 0747 96.8 98 138/84 01/23 2225 96 01/24 2008 98.0 69 140/85 01/24 2004 98.0 69 140/85 01/23 1628 72 146/96 01/23 1626 72 146/96 ASSESSMENT: Patient states that he'll feel safe and ready for discharge tomorrow. He lives with his fiance, who is an [employer], who is very supportive. Looking forward to attending IOP. Patient took Risperdal Consta IM injection today, will follow-up with visiting nurse. Patient reports a long history of bipolar luis and auditory hallucinations. States that auditory hallucinations continue today. The voices are "friendly, I hear my name called a lot, I hear commentary." States that the auditory hallucinations are "manageable, not negative." Denies command auditory hallucinations. He denies depression, endorses having some anxiety. Sleeping well at night with assist of CPAP, states he has diagnosed sleep apnea. His energy level is okay. His appetite is good. He verbalizes understanding that Risperdal can lead to weight gain, states that he eats healthfully and likes to exercise. Denies suicidal ideation, homicidal ideation, visual hallucinations, paranoid ideation. Speech is well articulated, goal-directed, average in rate, volume and tone. Calm, cooperative, pleasant. Logical. Alert and oriented 3. The patient understands the risks/benefits/side effects of the medication and is agreeable to continue taking them. PLAN: Anticipate discharge tomorrow for 9:30 AM IOP intake. Visiting nurse to manage IM Risperdal Consta. Continue with current management as patient is improving. Continue to provide support and encouragement.
--- NOTE | 2017-01-24 17:09 | SOCIAL WORKER PROG NOTE PSYCH ---
Social Work Progress Note Progress Note Called Jimmy to discuss availability for rides from [employer] to [facility]. I was told that he was eligible and to just call 48 hours in advance. Intake was scheduled for 9:30a Saturday for [facility]. Loki and I met. I gave him the information about Jimmy and encouraged him to call and schedule a ride for next week. He is planning to do the 5-[address] track at [facility]. He asked if I had information about connecting to other employment. He is not happy working from home and feels he would do better if he got out of the house. I encouraged him to connect with [facility] and to talk to folks at [facility]. Overall he is doing well. Still working on curbing his appetite to reduce weight gain.
[2017-01-25] MEDS ORDERED: LAMICTAL100 M2 PO (07:35)
[2017-01-25] MEDS ORDERED: RISPERDAL3 M1 PO (07:36)
[2017-01-25] MEDS ORDERED: RISPERDAL25 MG/2 ML IM (07:39)
[2017-01-25] MEDS ORDERED: LITHIUM CARBON300 M4 PO (07:40)
[2017-01-25] MEDS ORDERED: HYDROCHLOROTHIA25 M1 PO (07:41)
[2017-01-25] MEDS ORDERED: FLUTICASONE PRO16 GM NAS (07:42)
[2017-01-25] MEDS ORDERED: DEEP SEA44 ML NAS (07:43)
[2017-01-25] MEDS ORDERED: SYNTHROID75 MCG PO (07:44)
[2017-01-25] MEDS ORDERED: MELATONIN5 M7 PO (07:44)
--- NOTE | 2017-01-25 07:47 | CP SOUTH PROGRESS NOTE PSYCH ---
Psych (Inpt) Progress Note Progress Note Include the following elements, when applicable: Involvement in the active treatment of the patient with behavioral observations of the patient and the patient's response to the treatment. Review of the ongoing treatment process in the context of the treatment plan. Indication of how multi-disciplinary staff members are carrying out the treatment plan. Plans for future interventions and recommendations for revision of the treatment plan. Liaison with other physicians/providers. Progress Note: I discussed this patient's progress to date, current mental status, treatment process in the context of the treatment plan, and discharge planning with staff/ team in the daily morning inpatient team meeting. I also met with the patient myself in individual session. S: "I feel a lot better, the voices are stable." O: Current Medications Sig/Dulce Start time Last Medication Dose Route Stop Time Status Admin Fluticasone 1 SPRAY 1/2H B/BREAKF/DINNER 01/20 0700 AC 01/25 Propionate SADE 0653 Folic Acid 1 MG DAILY 01/18 181 DC 01/24 PO 0858 Hydrochlorothiazide 25 MG DAILY 01/22 1000 AC 01/24 PO 0859 Lamotrigine 100 MG DAILY 01/19 1000 01/24 PO 0858 Levothyroxine Sodium 0.075 MG DAILY AC 01/22 0700 AC 01/25 PO 0653 [place] Carbonate 600 MG BID 01/18 1330 AC 01/24 PO 2205 Lorazepam 0.5 MG 0800,01/25 0800 CAN PO 01/25 2001 Lorazepam 1 MG 0800 01/25 0800 AC PO 01/25 0801 Lorazepam 0.5 MG 0800,1200,1600,01/24 0800 DC 01/24 PO 01/24 2001 195 Lorazepam 2 MG Q1 NEEDED PRN 01/18 181 AC PO Lorazepam 1 MG Q1 NEEDED PRN 01/18 1815 AC 01/21 PO 0248 Melatonin 10 MG 2100 01/23 2100 AC 01/24 PO 2205 Nicotine 2 MG Q2P PRN 01/18 1845 AC PO Risperidone 25 MG Q 2 WEEKS 01/24 1000 AC 01/24 IM 1125 Risperidone 3 MG AT BEDTIME 01/18 2200 AC 01/24 PO 2205 Sodium Chloride 2 SPRAY 7:30 AM, & 4:30 PM 01/19 0730 01/24 SADE 0634 Thiamine HCl 100 MG DAILY 01/18 1811 DC 01/24 PO 0858 Trazodone HCl 50 MG AT BEDTIME NEED.. 01/23 2200 AC PO Vital Signs Date Time Temp Pulse Resp B/P B/P Pulse O2 O2 Flow FiO2 Mean Ox Delivery Rate 01/25 2012 98.3 64 138/91 01/25 2008 98.3 64 138/91 01/24 1609 75 144/91 01/24 1557 75 144/91 01/24 1246 68 141/92 01/24 1245 68 141/92 01/24 0804 96.8 98 138/84 A: Chart, progress notes, VS, and medication list were reviewed. B/l lower extremity edema improving. Vital signs within normal limits. Met with the patient this morning on the date of discharge. He presented alert and oriented to person, place, time and situation. Speech was normal in rate, tone and volume. Affect was full-range, non-labile. Mood was "a lot better." He had no complaints. He described his auditory hallucinations as "stable, benign. " He denied AH were command or distressing in nature. He denied visual hallucinations. He denied paranoid thoughts. There was no evidence of delusions. He reported depression of 1/10 (10 being the worst) and anxiety of 4/10 (10 being the worst). He denied active and passive suicidal ideation, plans and intent. He denied homicidal ideation. He stated and also believed he will not harm himself or others. He identified a protective factor of "Tammy (significant other)." Thought process was linear and goal-directed. Cognition was grossly intact. He reported his sleep and appetite were good. He expressed motivation to follow-up with [facility] level of care post-discharge; resume gardening and exercise. He reported tolerating all medications well and denied untoward medication effects. He reported feeling safe and ready for discharge. P: 1. Discharge home to significant other. 2. F/u at [facility] today at 9:30AM for intake. 3. F/u with PCP post-discharge on 02/02/17 at 10:30AM with Dr. Merrill. 4. F/u with [facility] for daily M-F medication administration. 5. Abstain from all substances. Encouraged to attend AA meetings for support in sobriety. 6. In the event of an emergency, call 911/go to nearest emergency department. Patient verbalized understanding of instruction.
--- NOTE | 2017-01-25 07:49 | DISCHARGE SUMMARY REPORT-PSYCH ---
Visit Information Visit Dates/Diagnosis' Admission Date: 01/18/17 Discharge Date: 01/25/17 Reason for Admission: Command auditory hallucinations to kill himself; alcohol detox. Psy Discharge Primary Diag: Unspecified psychosis Psy Discharge Secondary Diag: Bipolar disorder by history; Alcohol use disorder; HTN; hypothyroidism; Obstructive sleep apnea. Hospital Course Significant Lab Findings: Lab ALT 129 U/L H 01/17/172149 AST 96 U/L H 01/17/172149 Cholesterol/HDL Ratio 5 % H 01/22/17434 HDL Cholesterol 38 mg/dL L 01/22/17434 Hemoglobin A1c 5.1 % 01/20/178 Insulin Level 38.5 mIU/mL H 01/22/17434 TSH 6.840 uIU/mL H 01/20/178 TSH 5.330 uIU/mL H 01/22/17 0435 Triglycerides 232 mg/dL H 01/22/17434 Thyroglobulin Antibody 19 U/mL 01/22/17434 Thyroid Peroxidase Ab 30 U/mL 01/22/17434 Platina 0.5 mmol/L L 01/23/170 Serum Alcohol 147.0 MG/DL 01/17/17214901/19/17 EKG: Sinus rhythm with rate of 63. Abnormal T, consider ischeia, inferior leads. No significant changes from prior tracing. IA: 164. QRSD: 92. QT : 412. QTc: 422. P: -32. QRS: 70. T: -44. 01/21/17 ECHOCARDIOGRAM: FINDINGS: Left Ventricle Normal size left ventricle. No obvious regional wall motion abnormalities. Normal left ventricular ejection fraction estimated at 65-70%. Right Ventricle Right ventricle not well visualized, grossly normal. Right Atrium Right atrium not well visualized, grossly normal. Left Atrium Left atrial size at the upper limits of normal. Mitral Valve Structurally normal mitral valve. Aortic Valve Trileaflet aortic valve. Focal thickening of the aortic valve cusps. No aortic stenosis. No aortic regurgitation. Tricuspid Valve Tricuspid valve not well visualized, grossly normal. Physiologic tricuspid regurgitation. Pulmonic Valve Pulmonic valve not well visualized, grossly normal. Pericardium No pericardial effusion. Great Vessels Normal size aortic root and proximal ascending aorta. CONCLUSIONS 1. This was a technically difficult examination due to the patient's body habitus. 2. Minimal aortic sclerosis is present with no valvular stenosis or insufficiency. 3. The mitral valve appears anatomically normal. 4. There is no pericardial fluid detected on this examination. 5. The left ventricular chamber size and systolic function appear normal with an ejection fraction of at least 70% and no resting wall motion abnormalities. 6. A false tendon is present in the left ventricular chamber. 7. The right heart structures are grossly normal but were not optimally assessed. Minimal tricuspid insufficiency is noted. The RV systolic pressure was not optimally assessed. 01/21/17 ULTRASOUND OF THYROID: FINDINGS: Size: Measurements of the thyroid lobes and nodules are given sagittal, anterposterior and transverse dimensions respectively. Right Thyroid Lobe: 5.3 x 2.1 x 2.1 cm, volume 12.2 mL. Left Thyroid Lobe: 4.5 x 2.2 x 1.3 cm, volume 6.7 mL. Isthmus: 0.5 cm in maximum AP dimension. PARENCHYMA: The gland echotexture is mildly heterogenous. Thyroid vascularity is normal. RIGHT THHYROID LOBE: No nodules. Course Complications: None. Consultations: The patient was seen for admission history and physical by double corner cutter Dr. Arvind New. During evaluation, he was noted to have peripheral edema. Please see MD note for additional information. The patient was consulted again by double corner cutter Dr. Ana Maria Neal for elevated BP and peripheral edema. HCTZ 12.5mg daily was started and later increased by double corner cutter Dr. Ana Lilia San to 25mg daily. An echocardiogram was obtained (see results in 'Significant Lab' section). The patient was additionally consulted by bar catcher Dr. Edis Mahmood for elevated TSH. During evaluation, patient c/o a 35-40lb weight gain over short period of time. Dr. Mahmood recommended checking thyroid antibodies and thyroid ultrasound (see results on 'Significant Lab' section), in addition to obtaining repeat fasting blood sugar, fasting insulin level, hemoglobin A1c and fasting lipid panel. Patient's Synthroid was increased to 75mcg daily per Dr. Mahmood. Allergies: Coded Allergies: No Known Allergies (01/12/17) Hospital Course/TX Response: The patient was monitored on the unit for safety, mood, auditory hallucinations, homicidal and suicidal ideation, and alcohol withdrawal. He was monitored on CIWA protocol and started on an Ativan taper for alcohol withdrawal. He successfully completed Ativan taper without complication. He participated in multimodal treatments on the unit. He was started on Risperdal 3mg QHS for auditory hallucinations with good effect. He was agreeable to switching to Risperdal Consta long-acting injectable given a reported history of medication nonadherence. Risperdal Consta 25mg IM was started on 01/24/17 at 11:25AM. Lamictal 100mg daily was continued for mood stabilization. Platina 600mg twice a day was continued for mood stabilization. Melatonin 5mg at bedtime was started for sleep induction which was increased to 10mg at bedtime. He reported tolerating all medications well and denied untoward medication effects. During the hospital course, the patient's mood and affect improved. Auditory hallucinations improved significantly. The patient reported that at baseline, auditory hallucinations never fully remit. He denied auditory hallucinations were command or distressing in nature. A family meeting was held with the patient and his significant other, Leisa Gimenez LCSW, and this mortgage underwriter. The patient's treatment progress to date, medication regimen, discharge plan were reviewed and discussed. Ammy was very supportive of the patient, was in favor of him switching to Risperdal Consta to increase medication adherence; she was also in favor of him following up at [facility] and continued [facility]. The patient was also in agreement withplan. Ammy did not express any safety concerns over the patient's discharge. On the date of discharge, 01/25/17, the patient presented alert and oriented to person, place, time and situation. Speech was normal in rate, tone and volume. Affect was full-range, non-labile. Mood was "a lot better." He had no complaints. He described his auditory hallucinations as "stable, benign." He denied AH were command or distressing in nature. He denied visual hallucinations. He denied paranoid thoughts. There was no evidence of delusions. He reported depression of 1/10 (10 being the worst) and anxiety of 4/10 (10 being the worst). He denied active and passive suicidal ideation, plans and intent. He denied homicidal ideation. He stated and also believed he will not harm himself or others. He identified a protective factor of "Tammy (significant other)." Thought process was linear and goal-directed. Cognition was grossly intact. He reported his sleep and appetite were good. He expressed motivation to follow-up with [facility] level of care post-discharge; resume gardening and exercise. He reported tolerating all medications well and denied untoward medication effects. He reported feeling safe and ready for discharge. Discharge HBIPS - Tobacco Use Treatment Offered Post DC Medications Offered: NA-No Tob Use >30 days Post DC Tobacco Treatment Plan: NA-No Tobacco use >30days - EtOH/Drug Use D/O Treatment Offered Post DC Medications Offered: Ref Med EtOH/Drug Use D/O Post DC EtOH/SubAbuse TX Plan: Red SubAbuse/Dual IOP Program Appt Date: 01/25/17 Program Appt Time: 929 Metabolic Screening - Screen if on a Neuroleptic Medication - Metabolic screening should include: - Blood Pressure, BMI, Glucose or Hgb A1c, & a - Lipid profile from within the past 365 days. Metabolic Screening () Not Applicable, patient not on a neuroleptic. OR ([X]) Patient on a neuroleptic(s) . Enter below results for Glucose or Hemoglobin A1C, and lipid panel if obtained during the last 365 days. BMI: 42.000 Blood Pressure: 127/84 Laboratory Results (If applicable): Lab Cholesterol 191 MG/DL 01/22/17 0435 Cholesterol/HDL Ratio 5 % H 01/22/17 0435 HDL Cholesterol 38 mg/dL L 01/22/17 0435 Hemoglobin A1c 5.1 % 01/20/17 0418 LDL Cholesterol Direct 109.28 mg/dL H 01/20/17 0418 LDL Cholesterol, Calc 107 mg/dL 01/22/17 0435 Triglycerides 232 mg/dL H 01/22/17 0435 Discharge Instructions General Discharge Information Discharge Medications: Discharge Medications- (Dose, route, freq, indication): HOME MEDICATION LIST START taking these NEW Home Medications: Lamotrigine Dose: ORAL, DAILY for MOOD Qty: 14 Sent to (Lamictal) 100 MG 100 Milligram STABILITY Refills: 0 Pharm 1 TABLET Take 1 tab by mouth daily. Risperidone Dose: ORAL, TAKE AT BEDTIME Qty: 14 Sent to (Risperdal) 3 MG 3 Milligram for auditory Refills: 0 Pharm 1 TABLET hallucinations Take 1 tablet by mouth at bedtime/ Risperidone Dose: INTRAMUSC, EVERY 2 WEEKS Qty: 1 Sent to Microspheres 25 Milligram for hallucinations/clear Refills: 0 Pharm 1 (Risperdal Consta) thoughts 25 MG/2 ML SYRINGE Take 25mg/2ml IM every 2 weeks. Last administered: 01/24/17 @ 11:25AM. Platina Carbonate Dose: ORAL, TWICE DAILY for Qty: 56 Sent to (Platina Carbonate) 600 Milligram mood stabilization Refills: 0 Pharm 1 300 MG CAPSULE Take 2 caps (600mg) by mouth twice daily. Hydrochlorothiazide Dose: ORAL, DAILY for edema Qty: 14 Sent to (Hydrochlorothiazide) 25 Milligram Take 1 tablet by mouth Refills: 0 Pharm 1 25 MG TABLET daily. Fluticasone Dose: In the nose, 1/2 HR Qty: 1 Sent to Propionate 1 [place] BEFORE BREAKFAST/DINNER Refills: 0 Pharm 1 (Fluticasone for nasal congestion Propionate) 50 MCG/ Take 1 spray ACTUATION SPRAY.SUSP intranasally QAM and QPM. Sodium Chloride Dose: In the nose, 7:30AM & Qty: 1 Sent to (Deep Sea) 0.65 % 2 [place] 4:30PM for nasal Refills: 0 Pharm 1 SPRAY congestion Take 2 spray intranasally QAM and QPM. Levothyroxine Sodium Dose: ORAL, DAILY BEFORE Qty: 14 Sent to (Synthroid) 75 MCG 0.075 BREAKFAST for Refills: 0 Pharm 1 TABLET Milligram hypothyroidism Take 1 tablet by mouth daily before breakfast. Melatonin Dose: ORAL, 2100 for insomnia Qty: 28 Sent to (Melatonin) 5 MG 10 Milligram Take 2 tablets by mouth Refills: 0 Pharm 1 TABLET at bedtime. STOP taking these DISCONTINUED Home Medications: Levothyroxine Sodium Dose: ORAL, DAILY BEFORE BREAKFAST for (Levothyroxine Sodium) 50 MCG 1 Tablet THYROID TABLET Reason Stopped: Per Doctor Decision Clonazepam (Clonazepam) 1 MG Dose: ORAL, 2 x Daily as needed as TABLET 1 Tablet needed for ANXIETY Reason Stopped: Changed to different med 1: [id number], [address] [place] [address] Your Preferred Pharmacy [id number] [address] [place] [address] Multiple Neuroleptics: ([X]) Not Applicable OR Document below three failed attempts at monotherapy, or a plan to taper to monotherapy, or augmentation of Clozapine. () Patient's Diet: Regular. Patient's Activity: No restrictions. DC Disposition: Patient to return to home and significant other. Recommendations: The patient was advised to please take his medications as prescribed. He was advised to abstain from all substances, attend AA meetings and obtain a sponsor for support in sobriety. He was advised to follow-up with all scheduled outpatient appointments (see in referral section). He was advised that in the event of an emergency, to call 911/go to nearest emergency department. Patient verbalized understanding of all instructions. Referred To: Post Discharge Referrals Intensive Outpt Psychiatry Service Date: 01/25/17 [address] [place] [address] Notes: Intake at [facility] Intensive Outpatient Program 01/25/17 9:30am [address] [place], [place] [phone] Provider Referral Service Date: 01/25/17 Referred To: [[facility]] Notes: Visiting Nurse Services M-F for remedial reading teacher [phone] Start 01/25/17 Provider Referral Service Date: 02/02/17 Referred To: [facility] Practice Notes: IGOR Merrill 10:30am [address] [facility], [place] [phone] Copies To: Dr. Merrill; [facility]; [facility]
[2017-01-25 07:53] VITALS: BP 127/84
--- NOTE | 2017-01-25 09:05 | SOCIAL WORKER PROG NOTE PSYCH ---
Social Work Progress Note Progress Note Called [facility] in [place] to schedule a follow up appt. for Loki. The FAST FOOD MANAGER he usually sees was not available to see him in that office until February. He was open to seeing Dr. Merrill who was available to see him on 02/02 at 10:30am. Called [facility] to resume medication admin for him M-F. They will try and see him today. I let them know he is going to be going to [facility] and that he is now on a Risperdal Consta injection. Loki requested a letter for his [employer]cer [facility] in [place] stating he was here. This was provided. Informed him that [facility] would be looking to see him today. Ready for his 9:30am Intake at [facility]. He is planning to take an Uber home from there. Wished him well.
== END 2017-01-25 09:25 | DRG 751 ==
LOC: ERH 20:17 → CP SOUTH 01-18 14:21 → ERHI 01-18 14:21 → CP SOUTH 01-18 15:16 → ENRESERV 01-18 16:00 → CP SOUTH 01-20 06:44 → ENPENDDIS 01-25 09:30
PROVIDERS: Emergency Medicine; Internal Medicine Endocrinology, Diabetes & Metabolism; Psychiatry & Neurology Psychiatry; ADMIT Psychiatry & Neurology Addiction Medicine
DX: F29 Unspecified psychosis not due to a substance or known physiological condition (principal); F31.9 Bipolar disorder, unspecified; Z72.89 Other problems related to lifestyle; I10 Essential (primary) hypertension; E03.9 Hypothyroidism, unspecified
CPT/HCPCS: 36415; 80307; 86337; 86376; 86800; 90834; 93005; 93010; 93306; G0480; J3490

== ENCOUNTER 2017-01-30 19:57 | Emergency (ER) | payer OTHER ==
[~2017-01-30 19:57] MED LIST changes: +DEEP SEA44 ML NAS; +FLUTICASONE PRO16 GM NAS; +HYDROCHLOROTHIA25 M1 PO; +LITHIUM CARBON300 M4 PO; +MELATONIN5 M7 PO; +RISPERDAL25 MG/2 ML IM; +SYNTHROID75 MCG PO
--- NOTE | 2017-01-30 20:19 | ED PSYCHIATRIC COMPLAINT ---
See Addendum History of Present Illness General Chief Complaint: Psychiatric Related Complaint Stated Complaint: PT IS BIPOLAR,AND HEARING VOICES,AND ALOCHOL Source: patient, old records Exam Limitations: no limitations Vital Signs & Intake/Output Vital Signs & Intake/Output Vital Signs Date Time Temp Pulse Resp B/P B/P Pulse O2 O2 Flow FiO2 Mean Ox Delivery Rate 01/31 0857 97.9 80 18 141/80 96 Room Air 01/31 0611 97.0 83 16 130/73 98 Room Air Room Air 01/31 0223 98.2 88 18 130/70 97 Room Air 01/30 2332 98.5 98 16 144/79 99 Room Air 01/30 2331 Room Air 01/30 2014 99.1 92 16 133/89 96 Room Air ED Intake and Output 01/31 0000 01/30 1200 Intake Total Output Total Balance Patient 287 lb Weight Weight Standing Scale Measurement Method Allergies Coded Allergies: No Known Allergies (01/12/17) Reconcile Medications Fluticasone Propionate 50 MCG/ACTUATION SPRAY.SUSP 1 SPRAY SADE 1/2H B/BREAKF/ DINNER nasal congestion Take 1 spray intranasally QAM and QPM. Hydrochlorothiazide 25 MG TABLET 25 MG PO DAILY edema Take 1 tablet by mouth daily. Lamotrigine (Lamictal) 100 MG TABLET 100 MG PO DAILY MOOD STABILITY Take 1 tab by mouth daily. Levothyroxine Sodium (Synthroid) 75 MCG TABLET 0.075 MG PO DAILY AC hypothyroidism Take 1 tablet by mouth daily before breakfast. [place] Carbonate 300 MG CAPSULE 600 MG PO BID mood stabilization Take 2 caps (600mg) by mouth twice daily. Melatonin 5 MG TABLET 10 MG PO 2100 insomnia Take 2 tablets by mouth at bedtime. Risperidone (Risperdal) 3 MG TABLET 3 MG PO QHS auditory hallucinations Take 1 tablet by mouth at bedtime/ Risperidone Microspheres (Risperdal Consta) 25 MG/2 ML SYRINGE 25 MG IM Q 2 WEEKS hallucinations/clear thoughts Take 25mg/2ml IM every 2 weeks. Last administered: 01/24/17 @ 11:25AM. Sodium Chloride (Deep Sea) 0.65 % SPRAY 2 SPRAY SADE 7:30 AM, & 4:30 PM nasal congestion Take 2 spray intranasally QAM and QPM. Triage Note: TRIAGE: ARRIVES WITH SIG OTHER, DISCHARGED FROM [facility] SATURDAY, STILL HAVING +AH/+VH "SEEING COLORS ON PEOPLE". REGISTERED WITH [facility] BUT HAS NOT YET GONE TO [facility]. ARRIVES FEELING PARANOID AND DELUSIONAL. STARTED ON RISPERDAL. +ETOH SINCE DISCHARGE APPROX A FIFTH OF VODKA TODAY LAST DRINK THIS AFTERNOON. SPEECH SLIGHTLY SLURRED, BUT THOUGHT GENERALLY ORGANIZED. DENIES ILLICIT DRUG USE. DENIES SI/HI. CALM, COOPERATIVE IN TRIAGE. PRESENTS WITH DEPRESSED MOOD, DYSPHORIC, FLAT AFFECT. Triage Nurses Notes Reviewed? yes HPI: This is a 41-year-old male with history of his left active disordered just discharged from Inpatient Psychiatry 5 days ago presents with significant other for worsening feelings of depression, hallucinations. He has been binge drinking since Saturday after discharge from the hospital. His significant other states that he went across the street to set up his outpatient evaluations by the time she came home from work he was ready intoxicated. He admits to drinking a pint per day. Denies any drug use. Denies suicidal homicidal. He told her that he missed the confines of a safe environment which he felt on Inpatient Psychiatry. She's been using packing tape to seal off the dorsal radius which is relatively new phenomenon for him. (ELLEN YEH,JAH) Past History Travel History Traveled to [place] past 21 day No Medical History Any Pertinent Medical History? see below for history Neurological: NONE EENT: NONE Cardiovascular: NONE Respiratory: obstructive sleep apnea Gastrointestinal: NONE Hepatic: NONE Renal: NONE Musculoskeletal: NONE Psychiatric: schizo affective disorder, schizophrenia, BIPOLAR 1 Endocrine: hypothyroidism Blood Disorders: NONE Cancer(s): NONE History of MRSA: No History of VRE: No History of CDIFF: No Surgical History Surgical History: none Psychosocial History Who do you live with Significant Other Services at Home None What is your primary language Icelandic Tobacco Use: Never used ETOH Use: alcoholic Illicit Drug Use: denies illicit drug use Family History Family History, If Any: Relation not specified for: *No pertinent family history Hx Contributory? No (JAH HUGHES MD) Review of Systems Review of Systems Constitutional: Denies: chills, fever. EENTM: Reports: no symptoms. Respiratory: Denies: short of breath. Cardiovascular: Denies: chest pain. GI: Reports: no symptoms. Genitourinary: Reports: no symptoms. Musculoskeletal: Reports: no symptoms. Skin: Reports: no symptoms. Neurological/Psychological: Reports: anxiety, depressed, emotional problems. Hematologic/Endocrine: Denies: bruising, bleeding. Immunologic/Allergic: Reports: no symptoms. All Other Systems: Reviewed and Negative (JAH HUGHES MD) Physical Exam Physical Exam General Appearance: well developed/nourished, alert, awake, anxious, mild distress, moderate distress, obese Head: atraumatic Eyes: Bilateral: PERRL, EOMI. Ears, Nose, Throat: normal pharynx, normal ENT inspection, hearing grossly normal Neck: normal inspection, supple Respiratory: normal breath sounds Cardiovascular: regular rate/rhythm Gastrointestinal: soft, non-tender Extremities: normal range of motion Neurological/Psychiatric: LETHARGIC, AROUSABLE, INTOXICATED Appearance/Memory/Insight: disheveled Skin: intact, normal color, warm/dry SAD PERSONS Done? unobtained due to conditi (JAH HUGHES MD) Progress Differential Diagnosis: SCHIZOAFFECTIVE DISORDER, HALLUCINATIONS, PARANOIA, ALCOHOL ABUSE Plan of Care: Orders Procedure Date/time Status Regular Diet 01/31 B Active ED CRISIS PSYCH CONSULT 02/01 728 Active Add-on Test (ER Only) 01/30 2147 Active Add-on Test (ER Only) 01/30 2138 Active THYROID STIMULATING HORMONE 01/31 2124 Complete LITHIUM 01/31 2124 Complete FREE T4 01/31 2124 Complete URINE DRUGS OF ABUSE 01/30 2018 Complete URINALYSIS 01/30 2018 Complete ETHANOL 01/30 2018 Complete COMPREHENSIVE METABOLIC PANEL 01/30 2018 Complete CBC WITHOUT DIFFERENTIAL 01/30 2018 Complete Laboratory Tests 01/30/17 2255: Urine Opiates Screen < 100.00, Methadone Screen < 40, Barbiturate Screen < 60, Ur Phencyclidine Scrn < 6.00, Amphetamines Screen < 100, U Benzodiazepines Scrn < 85, Urine Cocaine Screen < 50, Urine Cannabis Screen < 5.00, Urine Color YEL, Urine Clarity CLEAR, Urine pH 6.5, Ur Specific Clemons 1.015, Urine Protein NEG, Urine Ketones NEG, Urine Nitrite NEG, Urine Bilirubin NEG, Urine Urobilinogen 0.2, Ur Leukocyte Esterase NEG, Ur Microscopic EXAM NOT REQUIRED, Urine Hemoglobin NEG, Urine Glucose NEG 01/30/172123: Anion Gap 15, Estimated GFR > 60, BUN/Creatinine Ratio 15.4, Glucose 94, Calcium 8.9, Total Bilirubin 1.0, AST 110 H, ALT 124 H, Alkaline Phosphatase 50, Total Protein 7.7, Albumin 4.6, Globulin 3.1, Albumin/Globulin Ratio 1.5, TSH 1.240, Free T4 1.02, CBC w Diff NO MAN DIFF REQ, RBC 5.73, MCV 85.2, MCH 29.3, RDW 13.6 , MPV 6.6 L, Gran % 56.1, Lymphocytes % 30.7, Monocytes % 7.7, Eosinophils % 5.1 H, Basophils % 0.4, Absolute Granulocytes 4.5, Absolute Lymphocytes 2.4, Absolute Monocytes 0.6, Absolute Eosinophils 0.4, Absolute Basophils 0, PUBS MCHC 34.3, Cogdell 1.1, Serum Alcohol 207.0 Hand-Off Endorsed To: ROSENDA VINES MD Endorsed Time: 2300 Pending: consult (CRISIS) (JAH HUGHES MD) Hand-Off Endorsed To: DAISHA LIPSCOMB DO Endorsed Time: 0700 Pending: consult (ROSENDA VINES MD) Departure Departure Disposition: STILL A PATIENT Condition: Stable Clinical Impression Primary Impression: Schizoaffective disorder Secondary Impressions: Alcohol intoxication Referrals: DINORAH BENTLEY,FRED Craig (PCP/Family) Departure Forms: Customer Survey General Discharge Information (ELLEN YEH,JAH) Departure Comments 01/31/17 10 AM Patient was signed out to me by Dr. Vines, he is pending disposition by crisis. (DAISHA LIPSCOMB DO)
[2017-01-30 21:33] LABS: ABSOLUTE BASOPHIL COUNT 0 /CUMM (0.0-0.2); ABSOLUTE EOSINOPHIL COUNT 0.4 /CUMM (0.0-0.7); ABSOLUTE GRANULOCYTE CT 4.5 /CUMM (1.4-6.5); ABSOLUTE LYMPH COUNT 2.4 /CUMM (1.2-3.4); ABSOLUTE MONOCYTE COUNT 0.6 /CUMM (0.10-0.60); BASOPHIL % 0.4 % (0.0-2.0); EOSINOPHIL % 5.1 % (0-5); GRANULOCYTE % 56.1 % (42.2-75.2); HEMATOCRIT 48.8 % (42-52); MEAN CORPUSCULAR HGB 29.3 PG (27.0-31.0); MEAN CORPUSCULAR HGB CONC 34.3 G/DL (33.0-37.0); MEAN CORPUSCULAR VOLUME 85.2 FL (80.0-94.0); MEAN PLATELET VOLUME 6.6 FL (7.4-10.4); PLATELET COUNT 258 /CUMM (130-400); RBC DISTRIBUTION WIDTH 13.6 % (11.5-14.5); RED BLOOD CELL CT 5.73 /CUMM (4.70-6.10)
[2017-01-30 22:09] LABS: LITHIUM 1.1 mmol/L (0.6-1.2)
--- NOTE | 2017-01-31 08:38 | ED PSYCH CRISIS CONSULTATION ---
Crisis Consult Basic Assessment Date of Consult: 01/31/17 Responsible Person/Accompanied By: self Insurance Authorization: Insurance #1: Insurance name: RAE ALVAREZ Phone number: Policy number: [id number] Group number: Authorization number: ED Provider: Patient's ED Provider: JAH HUGHES MD Primary Care Physician: Patient's PCP: FRED MENA PCP's Current Psychiatrist: was supposed to start IOP Chief Complaint: Psychiatric Related Complaint Patient's Quote: "I'm so depressed" Present Illness: Pt is a a 41yo male who was brought to the ED by his Fiance due to severe depression, AV/VH hallucinations, alcohol use and passive SI. Pt was recently discharged from [facility] on 01/25/17 with a plan to follow-up n [facility]. Pt says he attempted to attend and got too overwhelmed an hopeless when he saw all the people in the group and left. Pt admits that he is hearing voices telling him he is worthless and no one loves him. He says he relapsed on alcohol immediately after discharge to drown out the voices. Pt says he drinks a pint daily. 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 Pt expresses feeling of hopeless and helplessness and says that his life has become unmanageable due to not being able to concentrate do do anything because of the voices. Pt has not been able to work since November as a result. 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 Pt admits that the risperdal help with the voices a little bit but still does not stop them. Per Fibob Fuentes pt told her this morning he just wants to give up and that this is the 1st time he has been having suicidal thoughts. He expressed to her that he has nothing left to live for. Pt denies any active suicidal plan. Pt is ambivalent about inpt psych as he feels that nothing is helpful. He is agreeable to go to inpt psych as his Fiance Ammy would like him to be admitted for tx. Case reviewed with Dr. Chidi of Psychiatry and pt is in need of inpt psych tx. There are no beds available on [facility] so a bed search is being done. Patient's Address: [address] [place] [address] Other Phone Number: Who Do You Live With? Significant Other Family/Informants Interviewed: Mirtha Allergies - Coded Allergies: No Known Allergies (01/12/17) Current Medications - Scheduled Medications Fluticasone Propionate 50 MCG/ACTUATION SPRAY.SUSP 1 SPRAY SADE 1/2H B/BREAKF/ DINNER nasal congestion #1 SPRAY Prescribed by SHERIN MITCHELL APRN on 01/25/17 Hydrochlorothiazide 25 MG TABLET 25 MG PO DAILY edema #14 TAB Prescribed by SHERIN MITCHELL APRN on 01/25/17 Lamotrigine (Lamictal) 100 MG TABLET 100 MG PO DAILY MOOD STABILITY #14 TAB Prescribed by SHERIN MITCHELL APRN on 01/25/17 Levothyroxine Sodium (Synthroid) 75 MCG TABLET 0.075 MG PO DAILY AC hypothyroidism #14 TAB Prescribed by SHERIN MITCHELL APRN on 01/25/17 [place] Carbonate 300 MG CAPSULE 600 MG PO BID mood stabilization #56 CAP Prescribed by SHERIN MITCHELL APRN on 01/25/17 Melatonin 5 MG TABLET 10 MG PO 2100 insomnia #14 TAB Prescribed by SHERIN MITCHELL APRN on 01/25/17 Risperidone (Risperdal) 3 MG TABLET 3 MG PO QHS auditory hallucinations #14 TAB Prescribed by SHERIN MITCHELL APRN on 01/25/17 Risperidone Microspheres (Risperdal Consta) 25 MG/2 ML SYRINGE 25 MG IM Q 2 WEEKS hallucinations/clear thoughts #1 SYR Prescribed by SHERIN MITCHELL APRN on 01/25/17 Sodium Chloride (Deep Sea) 0.65 % SPRAY 2 SPRAY SADE 7:30 AM, & 4:30 PM nasal congestion #1 SPRAY Prescribed by SHERIN MITCHELL APRN on 01/25/17 Discontinued Medications Levothyroxine Sodium 50 MCG TABLET 1 TAB PO DAILY AC THYROID #30 (Reported) Discontinued reason: Per Doctor Decision Laboratory Results: Laboratory Tests 01/30/17 5814: Urine Opiates Screen < 100.00, Methadone Screen < 40, Barbiturate Screen < 60, Ur Phencyclidine Scrn < 6.00, Amphetamines Screen < 100, U Benzodiazepines Scrn < 85, Urine Cocaine Screen < 50, Urine Cannabis Screen < 5.00, Urine Color YEL, Urine Clarity CLEAR, Urine pH 6.5, Ur Specific [place] 1.015, Urine Protein NEG, Urine Ketones NEG, Urine Nitrite NEG, Urine Bilirubin NEG, Urine Urobilinogen 0.2, Ur Leukocyte Esterase NEG, Ur Microscopic EXAM NOT REQUIRED, Urine Hemoglobin NEG, Urine Glucose NEG 01/30/17 2124: Anion Gap 15, Estimated GFR > 60, BUN/Creatinine Ratio 15.4, Glucose 94, Calcium 8.9, Total Bilirubin 1.0, AST 110 H, ALT 124 H, Alkaline Phosphatase 50, Total Protein 7.7, Albumin 4.6, Globulin 3.1, Albumin/Globulin Ratio 1.5, TSH 1.240, Free T4 1.02, CBC w Diff NO MAN DIFF REQ, RBC 5.73, MCV 85.2, MCH 29.3, RDW 13.6 , MPV 6.6 L, Gran % 56.1, Lymphocytes % 30.7, Monocytes % 7.7, Eosinophils % 5.1 H, Basophils % 0.4, Absolute Granulocytes 4.5, Absolute Lymphocytes 2.4, Absolute Monocytes 0.6, Absolute Eosinophils 0.4, Absolute Basophils 0, PUBS MCHC 34.3, [place] 1.1, Serum Alcohol 207.0 (HUBER GONSALEZ,IRAM) Past History Past Medical History Neurological: NONE EENT: NONE Cardiovascular: NONE Respiratory: obstructive sleep apnea Gastrointestinal: NONE Hepatic: NONE Renal: NONE Musculoskeletal: NONE Psychiatric: schizo affective disorder, schizophrenia, BIPOLAR 1 Endocrine: hypothyroidism Blood Disorders: NONE Cancer(s): NONE Past Surgical History Surgical History: 1 Psychosocial History Strengths/Capabilities: Pt has a supportive significant other Ammy Jerome [phone], pt is agreeable to tx and wants to feel better Physical Limitations (Interventions): None noted Psychiatric Treatment History Psych Treatment Psychiatric Treatment Yes Inpatient Treatment Yes Outpatient Treatment Yes Location of Treatment Multiple Reason for Treatment bipolar with psychosis Dates of Treatment multiple Response to Treatment variable Diagnosis by History: Bipolar Disoder with Psychotic features. Substance Use/Abuse History Drug Use/Abuse Substances Used/Abused Yes Substance Used/Abused Alcohol First Use immediatly after discharge Last Used last night BAL 207 at 21:24 How much used/taken 1 pint of vodka daily How often daily For how long since discharge Route of use po Substance Abuse Treatment Substance Abuse Treatment Past Substance Abuse TX Yes Inpatient Treatment Yes Outpatient Treatment Yes Location of Treatment multiple Reason for Treatment alcohol use Dates of Treatment multiple Response to Treatment variable (IRAM NGO LCSW) Current Mental Status Mental Status Orientation: Person, Place, Situation Affect: Depressed, Hopeless, Sad Speech: WNL Neuro-vegetative: Anhedonia, Concentration Poor, Energy Decreased, Helpless, Loss of Interest, Sleep Disturbance Appearance Appearance- Dress/Hygiene: fairly groomed, good eye contact Behaviors Thought Process: WNL Thought Content: Auditory Hallucinations, Paranoid, Visual Hallucinations Memory: WNL Insight: WNL SI/HI Risk Assessment Past Suicidal Ideation/Attempts No Current Suicidal Ideation/Att Yes Past Homicidal Ideation/Att: No Current Homicidal Ideation/Attempts No Degree of Intent: Thoughts/No Intent Risk Factors: access to lethal means, high anxiety/distress, SA/MH hospitalized, substance abuse, male Lethality Ratin PTSD Checklist PTSD Done? patient declined ED Management Sitter: Yes Restraints: No (IRAM NGO LCSW) DSM5/PS Stressors/Medical Prob Diagnosis' (DSM 5, Stressors, Medical): Bipolar depressed with psychotic features F31.6 Current GAF: 25 (IRAM NGO LCSW) Departure Disposition Psych Medical Clearance Date: 01/31/17 Medically Cleared at: 0800 Time Started: 0800 Time Ended: 0900 Psychiatrist Consulted: Chidi YEH,Edward Date Disposition Established: 01/31/17 Time Disposition Established: 0900 Plan for Disposition - Modality: Inpatient Psychiatry Facility: Bed Search Rationale for Disposition: safety and stabilization Type of IP Admission: Voluntary Referrals DINORAH BENTLEY,FRED Craig (PCP/Family) (IRAM NGO LCSW) Disposition Date Disposition Established: 01/31/17 Time Disposition Established: 1229 Plan for Disposition - Modality: Inpatient Psychiatry Facility: [facility] Contact: [facility] Rationale for Disposition: Auditory and visual hallucinations, paranoia. Unstable in the community after D/ C from inpatient psychiatry 01/25/17 Type of IP Admission: PEC Additional Instructions: Patient may sign in voluntarily at [facility] (TRINA PUGA APRN
[2017-01-31 11:42] VITALS: BP 154/93
== END 2017-01-31 14:06 | disposition other institution (70) ==
LOC: ERH 19:57
PROVIDERS: Emergency Medicine
DX: F25.9 Schizoaffective disorder, unspecified (principal); F10.129 Alcohol abuse with intoxication, unspecified; G47.33 Obstructive sleep apnea (adult) (pediatric); E03.9 Hypothyroidism, unspecified
CPT/HCPCS: 80307; 81003; G0463; G0480

== ENCOUNTER 2017-02-25 19:52 | Inpatient (IN) | payer OTHER ==
[~2017-02-25] VITALS: Ht 180.3 cm; Wt 124.7 kg
--- NOTE | 2017-02-25 20:08 | NUR ---
Informed waiting has been performed.
--- NOTE | 2017-02-25 20:08 | NUR ---
TRIAGE: PT TO ER WITH JAYY C/Kaylan "I'M HAVING A LITTLE DELUISIONAL PROBLEMS. I FEEL LIKE A LOT OF PEOPLE ARE LOOKING AT ME. THERE JUST COMING DOWN ON ME." STATES HE IS HEARING VOICES "THEY ARE VERY VERY STRONG". TELLING HIM "THAT I'M NO GOOD. THAT I'M USELESS. THAT I NEED TO GO AHEAD AND KILL MYSELF. THOSE KIND OF VOICES." PT STATES HE DOES NOT WANT TO KILL HIMSELF AND "IT'S JUST ANNOYING". DENIES HOMICIDAL THOUGHTS. ADMITS TO DRINKING TODAY, RESPONDS "QUITE A BIT, I DON'T KNOW HOW TO ANSWER THAT" WHEN ASKED HOW MUCH HE DRANK TODAY. PT REPORTED HIMSELF TO BE AN OCCASIONAL DRINKER, JAYY DESCRIBES HIM A HEAVY DRINKER. PT DENIES DRINKING DAILY. JAYY STATES HE HAS BEEN DRINKING DAILY SINCE LAST SATURDAY. PT CALM AND COOPERATIVE AT TRIAGE.
--- NOTE | 2017-02-25 20:15 | ED PSYCHIATRIC COMPLAINT ---
History of Present Illness General Chief Complaint: Psychiatric Related Complaint Stated Complaint: MANIC EPISODE Source: patient Exam Limitations: no limitations Vital Signs & Intake/Output Vital Signs & Intake/Output Vital Signs Date Time Temp Pulse Resp B/P B/P Pulse O2 O2 Flow FiO2 Mean Ox Delivery Rate 02/26 0912 97.0 76 20 146/96 96 Room Air 02/26 0612 97.5 69 18 164/100 94 Room Air 02/26 0405 97.6 83 18 143/89 97 Room Air 02/26 0208 98.3 90 18 137/83 95 Room Air 02/26 0009 96.6 90 20 155/90 95 Room Air 02/25 2003 98.0 88 20 128/83 96 Room Air ED Intake and Output 02/26 0000 02/25 1200 Intake Total Output Total Balance Patient 275 lb Weight Weight Reported by Patient Measurement Method Allergies Coded Allergies: No Known Allergies (02/25/17) Reconcile Medications Acamprosate Calcium 333 MG TABLET.DR 2 TAB PO TID ADDICTION (Reported) Lamotrigine (Lamictal) 100 MG TABLET 100 MG PO DAILY MOOD STABILITY Take 1 tab by mouth daily. Levothyroxine Sodium (Synthroid) 75 MCG TABLET 0.075 MG PO DAILY AC hypothyroidism Take 1 tablet by mouth daily before breakfast. [place] Carbonate 600 MG CAPSULE 1 CAP PO QAM MENTAL HEALTH (Reported) [place] Carbonate 600 MG CAPSULE 900 MG PO QPM MENTAL HEALTH (Reported) Melatonin 5 MG TABLET 10 MG PO 2100 insomnia Take 2 tablets by mouth at bedtime. Risperidone Microspheres (Risperdal Consta) 37.5 MG/2 ML SYRINGE 1 SYR IM Q2W MENTAL HEALTH (Reported) Triage Note: TRIAGE: PT TO ER WITH JAYY Kimbrough/Kaylan "I'M HAVING A LITTLE DELUISIONAL PROBLEMS. I FEEL LIKE A LOT OF PEOPLE ARE LOOKING AT ME. THERE JUST COMING DOWN ON ME." STATES HE IS HEARING VOICES "THEY ARE VERY VERY STRONG". TELLING HIM "THAT I'M NO GOOD. THAT I'M USELESS. THAT I NEED TO GO AHEAD AND KILL MYSELF. THOSE KIND OF VOICES." PT STATES HE DOES NOT WANT TO KILL HIMSELF AND "IT'S JUST ANNOYING". DENIES HOMICIDAL THOUGHTS. ADMITS TO DRINKING TODAY, RESPONDS "QUITE A BIT, I DON'T KNOW HOW TO ANSWER THAT" WHEN ASKED HOW MUCH HE DRANK TODAY. PT REPORTED HIMSELF TO BE AN OCCASIONAL DRINKER, JAYY DESCRIBES HIM A HEAVY DRINKER. PT DENIES DRINKING DAILY. JAYY STATES HE HAS BEEN DRINKING DAILY SINCE LAST SATURDAY. PT CALM AND COOPERATIVE AT TRIAGE. Triage Nurses Notes Reviewed? yes Onset: Gradual Duration: day(s): Timing: recent history Severity: moderate, severe Associated Symptoms: anxiety, impaired concentration HPI: 41-year-old gentleman history of bipolar disorder and paranoia presents with flight of ideas, and paranoia the past several days, which worsened today after he began drinking alcohol. He presents this evening in the company of his fibryant paranoia. The patient states that he believes his thoughts are transmitted over the loud speaker at [employer]. He also believes that people around him can read his mind and are out to get him. He believes that there are people lurking in his home, which frightens him. He states that he hears voices. He states, "it's a woman's voice and she is. Mean." He denies suicidality, homicidality, drug abuse. (ALBERTO YEH,ROMELIA Cuellar) Past History Travel History Traveled to [place] past 21 day No Medical History Any Pertinent Medical History? see below for history Neurological: NONE EENT: NONE Cardiovascular: NONE Respiratory: obstructive sleep apnea, USES CPAP Gastrointestinal: NONE Hepatic: NONE Renal: NONE Musculoskeletal: NONE Psychiatric: schizo affective disorder, BIPOLAR 1 Endocrine: hypothyroidism Blood Disorders: NONE Cancer(s): NONE FURNACE FITTER/Reproductive: NONE History of MRSA: No History of VRE: No History of CDIFF: No Surgical History Surgical History: none Psychosocial History Who do you live with Significant Other Services at Home None What is your primary language Yakut Tobacco Use: Never used ETOH Use: PT REPORTS OCCASIONAL ETOH BUT JAYY REPORTS HEAVY DRINKER Illicit Drug Use: denies illicit drug use Family History Family History, If Any: Relation not specified for: *No pertinent family history Hx Contributory? No (ALBERTO YEH,ROMELIA Cuellar) Review of Systems Review of Systems Constitutional: Reports: no symptoms. EENTM: Reports: no symptoms. Respiratory: Reports: no symptoms. Cardiovascular: Reports: no symptoms. GI: Reports: no symptoms. Genitourinary: Reports: no symptoms. Musculoskeletal: Reports: no symptoms. Skin: Reports: no symptoms. Neurological/Psychological: Reports: no symptoms. Hematologic/Endocrine: Reports: no symptoms. Immunologic/Allergic: Reports: no symptoms. All Other Systems: Reviewed and Negative (ALBERTO YEH,ROMELIA Cuellar) Physical Exam Physical Exam General Appearance: well developed/nourished, mild distress Head: atraumatic Eyes: Bilateral: PERRL, EOMI. Ears, Nose, Throat: normal pharynx, normal ENT inspection, hearing grossly normal Neck: normal inspection, supple Respiratory: normal breath sounds Cardiovascular: regular rate/rhythm Gastrointestinal: soft, non-tender Extremities: normal range of motion Neurological/Psychiatric: no motor/sensory deficits, awake, agitated, alert, anxious, flat, oriented x 3 Appearance/Memory/Insight: disheveled, impaired insight Behavoir/Eye Contact/Speech: cooperative Thoughts/Hallucinations: auditory hallucinations, delusions, flight of ideas, paranoid Skin: intact, normal color, warm/dry SAD PERSONS SAD PERSONS Response Value Male Sex? yes 1 Depression/Hopelessness? yes 2 Excessive Ethanol/Drug Use? yes 1 Rational Thinking Loss? yes 2 Single//? yes 1 Social Support? has support 0 Total 7 SAD PERSONS Done? yes (ALBERTO YEH,ROMELIA Cuellar) Progress Differential Diagnosis: luis versus psychosis versus strain abuse versus other Plan of Care: Orders Procedure Date/time Status Regular Diet 02/26 B Active Admit to inpatient psych 02/26 1011 Active Add-on Test (ER Only) 02/25 2033 Active Continuous Observation Monitor 02/25 2033 Active ED CRISIS PSYCH CONSULT 02/25 2033 Active URINE DRUG SCREEN FOR ER ONLY 02/26 1956 Complete LITHIUM 02/26 1956 Complete ETHANOL 02/26 1956 Complete COMPREHENSIVE METABOLIC PANEL 02/26 1956 Complete CBC WITHOUT DIFFERENTIAL 02/26 1956 Complete Laboratory Tests 02/25/17 2143: Anion Gap 13, Estimated GFR > 60, BUN/Creatinine Ratio 13.6, Glucose 109 H, Calcium 8.9, Total Bilirubin 0.6, AST 121 H, ALT 104 H, Alkaline Phosphatase 46, Total Protein 6.7, Albumin 4.0, Globulin 2.7, Albumin/Globulin Ratio 1.5, CBC w Diff NO MAN DIFF REQ, RBC 5.05, MCV 85.6, MCH 29.7, RDW 13.0, MPV 6.9 L, Gran % 56.7, Lymphocytes % 29.6, Monocytes % 6.3, Eosinophils % 6.9 H, Basophils % 0.5, Absolute Granulocytes 4.8, Absolute Lymphocytes 2.5, Absolute Monocytes 0.5, Absolute Eosinophils 0.6, Absolute Basophils 0, PUBS MCHC 34.7, [place] 1.1, Serum Alcohol 213.0 02/25/17 2011: Urine Opiates Screen < 100.00, Methadone Screen < 40, Barbiturate Screen < 60, Ur Phencyclidine Scrn < 6.00, Amphetamines Screen < 100, U Benzodiazepines Scrn < 85, Urine Cocaine Screen < 50, Urine Cannabis Screen < 5.00 02/26/2017 7:20 AM PATIENT SIGNED OUT TO ME BY DR DOMINGUEZ. PENDING CRISIS EVALUTAION/ DISPOSITION. (JAH HUGHES MD) Hand-Off Endorsed To: JAH HUGHES MD Endorsed Time: 0700 Pending: consult (ALBERTO YEH,ROMELIA Cuellar) Departure Departure Disposition: STILL A PATIENT Condition: Stable Clinical Impression Primary Impression: Bipolar disorder Secondary Impressions: Alcohol intoxication, Paranoia Referrals: DINORAH BENTLEY,FRED Craig (PCP/Family) Departure Forms: Customer Survey General Discharge Information (ALBERTO YEH,ROMELIA Cuellar) Departure Time of Disposition: 1012 Psych Admission Note Psychiatric Admission: I have seen and evaluated HARINDER WHITEHEAD. I have also reviewed all the pertinent lab results and diagnostic results. HARINDER WHITEHEAD will be admitted to our inpatient Psychiatric unit for treatment and care. (JAH HUGHES MD)
--- NOTE | 2017-02-25 20:48 | NUR ---
1 BELONGING BAG TO CLOSET. NO VALUABLE BAG
--- NOTE | 2017-02-25 21:26 | NUR ---
PT'S , TIM, PROVIDED THIS RN A MED LIST. TIM CAN BE REACHED VIA TELEPHONE .
[2017-02-25] MEDS ORDERED: LITHIUM CARBON600 M1 PO ×3 (21:32→21:37)
[2017-02-25] MEDS ORDERED: ACAMPROSATE CA333 M1 PO (21:34)
[2017-02-25] MEDS ORDERED: RISPERDAL37.5 MG/2 IM (21:39)
--- NOTE | 2017-02-25 21:44 | NUR ---
BLOOD WORK OBTAINED AND SENT TO LAB BY ROMAIN GUTIERREZ
[2017-02-25 21:59] LABS: ABSOLUTE BASOPHIL COUNT 0 /CUMM (0.0-0.2); ABSOLUTE EOSINOPHIL COUNT 0.6 /CUMM (0.0-0.7); ABSOLUTE GRANULOCYTE CT 4.8 /CUMM (1.4-6.5); ABSOLUTE LYMPH COUNT 2.5 /CUMM (1.2-3.4); ABSOLUTE MONOCYTE COUNT 0.5 /CUMM (0.10-0.60); BASOPHIL % 0.5 % (0.0-2.0); EOSINOPHIL % 6.9 % (0-5); GRANULOCYTE % 56.7 % (42.2-75.2); HEMATOCRIT 43.2 % (42-52); MEAN CORPUSCULAR HGB 29.7 PG (27.0-31.0); MEAN CORPUSCULAR HGB CONC 34.7 G/DL (33.0-37.0); MEAN CORPUSCULAR VOLUME 85.6 FL (80.0-94.0); MEAN PLATELET VOLUME 6.9 FL (7.4-10.4); PLATELET COUNT 191 /CUMM (130-400); RED BLOOD CELL CT 5.05 /CUMM (4.70-6.10); WHITE BLOOD CELL COUNT 8.4 /CUMM (4.8-10.8)
[2017-02-25 22:23] LABS: LITHIUM 1.1 mmol/L (0.6-1.2)
--- NOTE | 2017-02-26 00:01 | NUR ---
ASSUMED PRIMARY CARE SITTER MAINTAINED, REQUESTED BY THID PRIMARY MILL ROLLER TO KEEP DOOR AJAR FOR VISUALIZATION
--- NOTE | 2017-02-26 01:32 | NUR ---
PT UP REQUESTING TO USE PHONE. AWARE MAY USE PHONE IN AM.
--- NOTE | 2017-02-26 03:36 | NUR ---
PT SLEEPING WITH RR, BILATERAL CHEST RISE AND FALL NOTED. SITTER IN PLACE FOR SAFETY. WILL CONTINUE TO MONITOR
--- NOTE | 2017-02-26 05:13 | NUR ---
PT SLEEPING WITH RR, BILATERAL CHEST RISE AND FALL NOTED. SITTER IN PLACE FOR SAFETY, WILL CONTINUE TO MONITOR
--- NOTE | 2017-02-26 06:44 | NUR ---
PT SLEEPING WITH RR, EASILY AROUSABLE, VSS, THIS RN INFORMED PT BREAKFAST WILL ARRIVE SHORTLY. SITTER IN PLACE FOR SAFETY.
--- NOTE | 2017-02-26 07:31 | NUR ---
PT SITTING UP, AWAKE AND ALERT, CALM AND COOPERATIVE. SITTER AT BEDSIDE FOR PT SAFETY.
--- NOTE | 2017-02-26 09:43 | ED PSYCH CRISIS CONSULTATION ---
Crisis Consult Basic Assessment Date of Consult: 02/26/17 Responsible Person/Accompanied By: Geronimo Gimenez Insurance Authorization: Insurance #1: Insurance name: RAE ALVAREZ Phone number: Policy number: [id number] Group number: Authorization number: ED Provider: Patient's ED Provider: ALBERTO YEH,GARCIA Cuellar Primary Care Physician: Patient's PCP: FRED MENA PCP's Current Psychiatrist: Destiny Lora APRN Chief Complaint: Psychiatric Related Complaint Patient's Quote: " I'm just getting more manic." Present Illness: Pt is 41 yo male with Bipolar and alcohol use d/o. His UTOX was negative and GLENN was 213 when he came in. Pt's lithium level is 1.1. Per nursing notes in triage the AH were telling him he should kill himself . He denies SI/HI at present and states he has no intent. However pt stated the voices " were just annoying." Pt reports increase an increase in " manic symptoms" as he describes being up at 2am and wanting to go to medical school and needs to get all of his grades together. Pt is poor historian as he presents with disorganized thoughts and confusion. He has poor insight into his drinking behaviors as he stated his drinking is not the problem and will drink alcohol when the voices get really bad. Pt has hx of suicide attempts in fall of 2015 he said he cut himself (pt has visible scars down his left arm.) He states that he attends [facility] for 1:1 and medications([phone]). Pt reports having VNA services through [facility]([phone]). This quality analyst/technical writer attempted to gain collateral from both agencies. Medications in chart : levothyoxine 75mg lithium 600mg lamictal 100mg acamprosate 666mg melatonin 10mg-15mg Per collateral with mirtha Gimenez ( Nurse practioner) : Last Saturday, she noticed he started drinking again and notices he tends to decomensate and his symptoms become more amplified. Ammy works M-W 12 hour shifts. Her main concern is that this is the 4th time in the past 6 week period has has had 2 hospital admission 1 at 01/17-01/25 and the other at [facility] 01/30-02/04. Mirtha is concerned when he is this decompensated he cuts himself. Ammy locked up all sharps in the house. She notes his last cutting experience was in July 2016 and the second sometime earlier in 2015. Medication compliance is of concern as she suspects he is missing doses and using alcohol. Ammy feels he needs inpatient admission. Patient's Address: [address] [place] [address] Other Phone Number: Who Do You Live With? Significant Other Family/Informants Interviewed: Bridgett espinosa Allergies - Coded Allergies: No Known Allergies (02/25/17) Current Medications - Scheduled Medications Acamprosate Calcium 333 MG TABLET.DR 2 TAB PO TID ADDICTION (Reported) Entered as Reported by LEONCIO ROYAL on 02/25/172133 Lamotrigine (Lamictal) 100 MG TABLET 100 MG PO DAILY MOOD STABILITY #14 TAB Prescribed by SHERIN MITCHELL APRN on 01/25/17 Levothyroxine Sodium (Synthroid) 75 MCG TABLET 0.075 MG PO DAILY AC hypothyroidism #14 TAB Prescribed by SHERIN MITCHELL APRN on 01/25/17 [place] Carbonate 600 MG CAPSULE 1 CAP PO QAM MENTAL HEALTH (Reported) Entered as Reported by LEONCIO ROYAL on 02/25/172131 [place] Carbonate 600 MG CAPSULE 900 MG PO QPM MENTAL HEALTH (Reported) Entered as Reported by LEONCIO ROYAL on 02/25/172136 Melatonin 5 MG TABLET 10 MG PO 2100 insomnia #14 TAB Prescribed by SHERIN MITCHELL APRN on 01/25/17 Risperidone Microspheres (Risperdal Consta) 37.5 MG/2 ML SYRINGE 1 SYR IM Q2W MENTAL HEALTH (Reported) Entered as Reported by LEONCIO ROYAL on 02/25/172138 Past History Past Medical History Neurological: NONE EENT: NONE Cardiovascular: NONE Respiratory: obstructive sleep apnea, USES CPAP Gastrointestinal: NONE Hepatic: NONE Renal: NONE Musculoskeletal: NONE Psychiatric: schizo affective disorder, BIPOLAR 1 Endocrine: hypothyroidism Blood Disorders: NONE Cancer(s): NONE NATIONAL EXPANSION RECRUITER/Reproductive: NONE Past Surgical History Surgical History: 1 Psychosocial History Strengths/Capabilities: Pt has a supportive significant other Ammy Cano [phone], pt is agreeable to tx and wants to feel better Physical Limitations (Interventions): None noted Psychiatric Treatment History Psych Treatment Psychiatric Treatment Yes Inpatient Treatment Yes Outpatient Treatment Yes Location of Treatment [facility] 2016, [facility] 2017, [facility] Reason for Treatment Bipolar and medication compliance Dates of Treatment 2017- present Response to Treatment Poor- pt has had 2 inpatient hospitalizations in the past month. Diagnosis by History: Bipolar Disoder with Psychotic features. Substance Use/Abuse History Drug Use/Abuse Substances Used/Abused Yes Substance Used/Abused Alcohol Last Used yesterday How much used/taken half a pint of vodka How often pt was guarded around substance use For how long years Route of use oral Substance Abuse Treatment Substance Abuse Treatment Past Substance Abuse TX Yes Inpatient Treatment Yes Outpatient Treatment Yes Location of Treatment [facility] and [facility] Reason for Treatment IOP and detox for dual dx Dates of Treatment 2016 Response to Treatment Poor - pt only attended the IOP intake and relapsed that night. Comments: Pt presents with poor insight into substance use. Current Mental Status Mental Status Orientation: Confused Affect: Flat, Hopeless, Manic Speech: Pressured, Soft Neuro-vegetative: Appetite Decreased, Energy Decreased, Loss of Interest, Sleep Disturbance Appearance Appearance- Dress/Hygiene: Pt is dressed in blue hospital gown and wearing eye glasses Behaviors Thought Process: Disorganized, Flight of Ideas Thought Content: Auditory Hallucinations, Grandiose Memory: Impaired Insight: Poor SI/HI Risk Assessment Past Suicidal Ideation/Attempts Yes Current Suicidal Ideation/Att No Past Homicidal Ideation/Att: No Current Homicidal Ideation/Attempts No Degree of Intent: Command AH telling him he should kill himself. Danger To: Self Gravely Disabled: Poor Judgment Risk Factors: history of suicide atmpts, SA/MH hospitalized, substance abuse, poor impulse control, lack of outcome concern, male Lethality Ratin PTSD Checklist PTSD Done? pt unable to participate ED Management Sitter: Yes Restraints: No DSM5/PS Stressors/Medical Prob Diagnosis' (DSM 5, Stressors, Medical): Bipolar D/O with psychosis (F 33.3) Alcohol Use Severe (F10.20) medical: none stated pscyhosocial : isolated from friends/family Current GAF: 25 Departure Disposition Psych Medical Clearance Date: 02/26/17 Medically Cleared at: 0830 Time Started: 829 Time Ended: 944 Psychiatrist Consulted: Garcia Johnson MD Disposition Established: 02/26/17 Time Disposition Established: 944 Plan for Disposition - Modality: Inpatient Psychiatry Facility: [facility] Contact: [facility] Rationale for Disposition: Pt presents with increase in paranoid, manic and AH symptoms telling him he should kill himself. Pt denies intent or plan to harm himself. He presents with poor judgement and insight into his illness and ETOH use. Pt has hx of 2 suicide attempts but cutting his wrists ( last attempt Jul 2016). This quality analyst/technical writer consulted with Dr. Johnson and Dr. Herrera, and recommends inpatient admission. Type of IP Admission: Voluntary Referrals DINORAH BENTLEY,FRED Craig (PCP/Family)
--- NOTE | 2017-02-26 10:08 | NUR ---
Dispo: This sports book writer consulted with Dr. Johnson and Dr. Herrera, pt meets inpatient criteria and will be admitted to [facility] when bed becomes available.
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
--- NOTE | 2017-02-26 11:47 | NUR ---
GIRLFRIEND TIM CALLED TO REVIEW PATIENT'S MEDICATIONS. DR. HUGHES AWARE AND WILL PUT IN ORDERS FOR DAILY MEDS
--- NOTE | 2017-02-26 12:17 | NUR ---
PT MEDICATED PER EMAR
--- NOTE | 2017-02-26 12:26 | NUR ---
PHARMACY CALLED OR VAUGHN TREADWELL IN PHARMACY STATING HE IS WORKING ON THEM CURRENTLY AND WILL BE READY IN APPROX 5-10 MIN
--- NOTE | 2017-02-26 13:14 | NUR ---
PT REQUESTING UPDATE ON LITHIUM VALUE, EDUCATED ON RESULT OF 1.1, DENIES ANY ADDTL NEEDS AT THIS TIME, INFORMED OF POC
[2017-02-26 14:42] VITALS: BP 150/96
--- NOTE | 2017-02-26 14:42 | NUR ---
PT RESTING QUIETLY, CONTINUE TO AWAIT CP [facility]
--- NOTE | 2017-02-26 15:55 | NUR ---
PT AWOKEN AND GIVEN MEAL. CHECO FROM [facility] CALLED AND WAS GIVEN REPORT
--- NOTE | 2017-02-26 15:57 | NUR ---
PER DOCUMENTATION. PT HAS NO VALUABLE LOCKED UP IN SAFE.
[2017-02-26 17:51] VITALS: BP 147/89
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
[2017-02-26 20:18] VITALS: BP 142/94
[2017-02-26 20:22] VITALS: BP 142/94
[2017-02-26 23:59] VITALS: BP 139/85
[2017-02-27] VITALS (8 sets, daily range): BP systolic 138–156; BP diastolic 88–97
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
--- NOTE | 2017-02-27 11:02 | SOCIAL WORKER PROG NOTE PSYCH ---
Social Work Progress Note Progress Note Loki presented as fatigued and down this morning. Marie Lockhart APRN was present for this meeting as well. Loki shared that he didn't follow up at [facility] after discharge from here in December, because "it was too far." He reported going to [facility]
--- NOTE | 2017-02-27 11:03 | SOCIAL WORKER PROG NOTE PSYCH ---
Social Work Progress Note Progress Note Loki presented as fatigued and down this morning. Marie Lockhart APRN was present for this meeting as well. Loki shared that he didn't follow up at [facility] after discharge from here in December, because "it was too far." He reported going to [facility] after discharging from here. He was having "manic moments." He stated that he wasn't sleeping and at one point he was going to go to graduate school at 2am. He had the urge to pack up and go to school, but didn't really have a plan. He reports that he has been compliant with medication. He has a visiting nurse service coming daily. He is continuing to hear voices, but states they have not been too distressing. Occasionally he reports that they say things like "you're useless", "you need to give up." He denies any current SI. He is concerned of increased confusion/ difficulty getting his words out. He thinks this may be from the Risperdal Injection. He would prefer to remain on oral Risperdal. He has continued to drink despite the fact that the voices were more undercontrol. At last admission, he had reported that the drinking increased due to distressing voices. This time he acknowledged that he continues to drink despite the voices being more benign. He talked about his feelings or worthlessness, guilt, shame, related to not working and not doing more to support the household. He feels bad that Ammy is supporting them. He feels that she is becoming more frustrated with the situation. He signed a release for us to speak with her and set up a family meeting. Called Ammy to schedule a family meeting. She was not available to come in this week. She talked about how he is using the alcohol as a coping skill versus using his other coping abilities. She is available to come in Saturday at 11am for a meeting if he stays through the weekend. She is advocating for him to stay.
--- NOTE | 2017-02-27 12:10 | NUR ---
PT HAS REMAINED CALM THROUGHOUT THIS SHIFT. HE ATTENDED ONLY ONE GROUP THIS MORNING. HE IS COMPLIANT WITH HIS MEDS. WHEN ASKED PT DENIED SUICIDAL THOUGHTS. PT APPEARS PREOCCUPIED AT TIMES AND IS OBSERVED PACING AND DOING PUSHUPS
--- NOTE | 2017-02-27 13:01 | SOCIAL WORKER TX PLAN PSYCH ---
Treatment Plan - Please Document: - Evidence that there is ongoing collaboration between - the patient and the interdisciplinary team, - including the patient's active participation and - responsibility for engaging in the treatment regimen, - and that the treatment plan is individualized and - relevant to the patient's conditions. - Treatment plan should reflect documentation indicating - that all active therapeutic efforts are included. Strengths/Capabilities: Pt has a supportive significant other Ammy Cano [phone], pt is agreeable to tx and wants to feel better Physical Limitations (Interventions): None noted DSM5/PS Stressors/Medical Prob Diagnosis' (DSM 5, Stressors, Medical): Bipolar D/O with psychosis (F 33.3) Alcohol Use Severe (F10.20) medical: none stated pscyhosocial : isolated from friends/family Current GAF: 25 Treatment Team - Responsibilities of members of the treatment team include: - Medication Management- MD or SENIOR DRAFTER - Medication Administration and Monitoring- Nurse - Group Therapy- Occupational Therapist - 1:1 Therapy,Disch Planning,family involvement-News Director
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
--- NOTE | 2017-02-27 14:44 | History & Physical ---
General Information and HPI History of Present Illness: This young male was admitted to [facility] again after about a month of discharge from last admission. He reports that he was having a lot of delusions and had been drinking a lot of alcohol differential his fiance and himself decided to come to the hospital for further help ..he claims he has been taking his medications regularly but he was also drinking a lot of alcohol. He denies any specific physical problems recently. He has a history of hypothyroidism which he claims is due to lithium that he has been on for a long time. He claims that his maternal grandfather had schizophrenia and his brother has bipolar disorder is like himself. 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 He lives with his fiance and does not smoke and denies doing any other drugs at this time although he admits to drinking between half to 1 pint of vodka off and on. Allergies/Medications Allergies: Coded Allergies: No Known Allergies (02/25/17) Home Med list Acamprosate Calcium 333 MG TABLET.DR 2 TAB PO TID ADDICTION (Reported) Lamotrigine (Lamictal) 100 MG TABLET 100 MG PO DAILY MOOD STABILITY Take 1 tab by mouth daily. Levothyroxine Sodium (Synthroid) 75 MCG TABLET 0.075 MG PO DAILY AC hypothyroidism Take 1 tablet by mouth daily before breakfast. [place] Carbonate 600 MG CAPSULE 1 CAP PO QAM MENTAL HEALTH (Reported) [place] Carbonate 600 MG CAPSULE 900 MG PO QPM MENTAL HEALTH (Reported) Melatonin 5 MG TABLET 10 MG PO 2100 insomnia Take 2 tablets by mouth at bedtime. 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 spouse (girl friend) Services at Home: None Primary Language: Bulgarian ETOH Use: PT REPORTS OCCASIONAL ETOH BUT FIANCE REPORTS HEAVY DRINKER Illicit Drug Use: denies illicit drug use Living Will? no Functional Ability ADLs Independent: dressing, eating, toileting, bathing. Ambulation: independent IADLs Independent: shopping, housework, finances, food prep, telephone, transportation , medication admin. Review of Systems Review of Systems Constitutional: Denies: no symptoms, see HPI, fever, weakness. EENTM: Denies: no symptoms. Cardiovascular: Denies: no symptoms, see HPI, chest pain, edema. Respiratory: Denies: no symptoms. GI: Denies: no symptoms. Genitourinary: Denies: no symptoms. Musculoskeletal: Denies: no symptoms. Skin: Denies: no symptoms. Neurological/Psychological: Reports: see HPI, depressed, emotional problems. Hematologic/Endocrine: Reports: see HPI. Exam & Diagnostic Data Last 24 Hrs of Vital Signs/I&O Vital Signs Date Time Temp Pulse Resp B/P B/P Pulse O2 O2 Flow FiO2 Mean Ox Delivery Rate 02/27 1226 82 138/96 02/27 1216 82 138/96 02/27 0757 96.5 68 138/97 02/27 0753 96.5 68 138/97 02/27 0001 78 97 02/26 2359 56 139/85 02/26 2307 71 99 02/26 2022 98.3 73 142/94 02/26 2018 98.3 73 142/94 02/26 1751 97.8 81 147/89 02/26 1442 98.6 84 18 150/96 Intake & Output 02/27 1600 02/27 0800 02/27 0000 Intake Total Output Total Balance Patient 275 lb Weight Physical Exam General Appearance Alert, Oriented X3, Cooperative, No Acute Distress Skin No Rashes, No Breakdown, No Significant Lesion HEENT Atraumatic, PERRLA, EOMI, Mucous Membr. moist/pink Neck Supple, No JVD, No thryomegaly, +2 Carotid Pulse wo Bruit Lymphatic Cervical nl Cardiovascular Regular Rate, Normal S1, Normal S2, No Murmurs, Gallops, Rubs Lungs Clear to Auscultation, Normal Air Movement Abdomen Normal Bowel Sounds, Soft, No Tenderness, No Hepatospenomegaly, No Masses Neurological Exam Findings: Normal Gait, Normal Speech, Strength at 5/5 X4 Ext, Normal Tone, Cranial Nerves 3-12 NL, Reflexes 2+ Cranial Nerves II through XII: Within normal limits and intact Extremities No Clubbing, No Cyanosis, No Edema, No Tenderness/Swelling Assessment/Plan Assessment: This young male is admitted for worsening mental status. He also has a history of alcohol abuse as well as bipolar disorder. His labs are notable for slightly abnormal liver functions which was also present about a month ago when he was here for lost admission. His hepatitis profile is negative and hepatitis B and C workup was negative about a month ago and repeated. No abnormal liver function most likely due to his alcohol abuse and does not require any treatment other than actual timing folate and multivitamin. His thyroid function is normal with a normal TSH and therefore he will be continued on 75 g of Synthroid daily and does not need any other workup or change in his thyroid status. The EKG shows him to be normal sinus rhythm and slightly abnormal but there is no change from last month and there is no history of any cardiac problem and therefore he does not require any treatment for as well As Ranked By This Provider Problem List: 1. Alcohol intoxication 2. Bipolar 1 disorder 3. Hypothyroidism Miscellaneous Miscellaneous Documentation Attending Case Discussed With: MIKHAIL YEH,DONOVAN Izquierdo Primary Care Physician: FRED MENA Patient sees these Specialists none Level of Patient Care: KP Perry Attending MD Review Statement Attending Statement Attending MD Statement: examined this patient, reviewed EMR data (avail), discussed with nursing Attending Assessment/Plan: This young male was admitted to psychiatry for worsening of his mental status as well as alcohol abuse. He had been discharged about a month ago from [facility] psychiatry and reports that he has been taking medications regularly. At this time there is no acute medical problem and is fairly stable from a medical standpoint. He does not require any medical workup or treatment at this time.
--- NOTE | 2017-02-27 17:51 | NUR ---
PT IS CALM, COOPERATIVE WITH STAFF AND PEERS, AND COMPLIANT WITH UNIT RULES. OFTEN IN [place], INTERACTING WELL WITH OTHERS. APPEARS SLIGHTLY HYEPRACTIVE, PACING ABOUT UNIT AT TIMES. MOOD IS STABLE, AFFECT IS EUTHYMIC TO FULL RANGE, COMMUNICATION IS ORGANZIZED AND APPEARS NORMAL IN ALL RESPECTS, ABD APPETITE IS NORMAL. PT DENIES SI AT THIS TIME.
[2017-02-28] VITALS (8 sets, daily range): BP systolic 140–162; BP diastolic 80–98
--- NOTE | 2017-02-28 03:43 | NUR ---
SLEPT WELL C-PAP IN PLCE.
--- NOTE | 2017-02-28 13:20 | NUR ---
PT IS STABLE WITH FULL RANGE OF AFFECT. PT'S AFFECT/MOOD HAS BEEN VERY APPROPRIATE TO THE UNIT THIS AM SHIFT. PT WAS OUT IN THE COMMUNITY AND INTERACTING WITH PEERS/STAFF THIS MORNING. HAS BEEN TO ALL MORNING GROUPS AND EATING BREAKFAST/LUNCH. PT SET GOAL TO PARTICIPATE TODAY AND ATTEND GROUPS, ALL OF WHICH HE HAS DONE. COMPLIANT, COOPERATIVE AND PLEASANT. VS ARE STABLE AND DENIES ANY SI/HI TO THIS MHW.
--- NOTE | 2017-02-28 13:46 | CP SOUTH PROGRESS NOTE PSYCH ---
Psych (Inpt) Progress Note Progress Note Include the following elements, when applicable: Involvement in the active treatment of the patient with behavioral observations of the patient and the patient's response to the treatment. Review of the ongoing treatment process in the context of the treatment plan. Indication of how multi-disciplinary staff members are carrying out the treatment plan. Plans for future interventions and recommendations for revision of the treatment plan. Liaison with other physicians/providers. Progress Note: Medication list reviewed. Case and treatment plan discussed in team meeting. Staff reports that the patient believes that substance abuse is his bigger problem. CIWA scores are low. Still experiencing AHs. Was depressed yesterday. Couple's meeting with van is planned for Saturday. Patient seen with SAVITA in conference room at 1:26 pm. Reports the day is going pretty well. States that he feels better. Reports he acutally slept, which he thinks helped. Feels well physically. Wants Antabuse, which he had in the past. He is currently not a good candidate for Antabuse because of elevated LFTs. Affect is calm and blunted to euthyic. Complains of decreased concentration, which he attributes to Risperdal Consta, and at this time, the patient is reluctant to resume Consta. Sad ~6/10. Anxiety is "up there," ~9/ 10. Feels hopeless, worthless and guilty "for putting all the daily responsibilities on Ammy." Denies feeling helpless. Denies active and passive SI and HI. Reports AHs are mild on Risperdal. The voices comment about his day and occasionally call him useless or say "you're no good." Hx VH before Risperdal, but no VH now. Reports hx paranoid delusions, and even now remains afraid of his neighbors. Reports he has put tape on the doors at home in the past, in an effort to try to detect an intrusion. Denies magical chisholm. Oriented to person and place. Date: 02/27/17 or 02/28/17. Sleep: improving. Appetite and energy: good. IMPRESSION: Slow progress. Continue present treatment plan. Consider increasing Risperdal dose, especially if patient does not resume Consta. [place] level on Saturday morning.
--- NOTE | 2017-02-28 14:52 | SOCIAL WORKER PROG NOTE PSYCH ---
Social Work Progress Note Progress Note Loki and I met this afternoon. Dr. Johnson was present for part of this meeting. He reported sleeping well last night. Denied SI/ HI, reported some voices that he considers benign, reports feeling hopeless, worthless, guilty. Has some paranoia about the neighbors. Reported that he sometimes uses duct tape on the door to see if anyone has been in the house. Interested in getting back on Antabuse, but Dr. Johnson did not recommend this right now due to elevated liver function. I talked with Loki about his drinking and Ammy's concern over his drinking. He admits that the drinking has been his main coping skill at this point to handle issues related to mental health. We talked about considering inpatient 30 day rehab. Loki really wasn't interested at this time. He reports having done rehab 2x's and didn't feel it was really helpful. He last went to rehab in [facility] in 2011. I talked about IOP. He also seemed to baulk at that as well, stating he has done IOP 3x's and he found it difficult to relate to others at [facility], because they were there for different reasons. I confronted him gently about this and stated that he doesn't think rehab would work and doesn't think IOP is helpful and he told me yesterday that outpatient was getting stale after going for a year. I told him that it's difficult to understand what he thinks will work at this point, if he is shooting everything down. He talked about how he feels he needs to reconnect with AA. He stated he had a good social network in [facility] and he has lost all of that. He has also lost connection with activities that he used to do. He talked about how he has struggled resisting the tempation to drink and that nothing will help unless he wants to change. He stated that at this point he is scared to drink and doesn't want to. He feels it is ruining things in the long run. Worried about his health and his relationship with Ammy. We will plan to talk with Ammy via conference call tomorrow late morning.
--- NOTE | 2017-02-28 17:45 | NUR ---
PT IS CALM, COOPERATIVE WITH STAFF AND PEERS, AND COMPLIANT WITH UNIT RULES. OFTEN IN [place], INTERACTING WITH OTHERS. MOOD IS STABLE, AFFECT IS EUTHYMIC TO FULL RANGE, COMMUNICATION IS ORGANIZED AND APPEARS NORMAL IN ALL RESPECTS, AND APPETITE IS NORMAL. PT DENIES SI AT THIS TIME.
[2017-03-01] VITALS (8 sets, daily range): BP systolic 146–184; BP diastolic 74–98
--- NOTE | 2017-03-01 06:50 | NUR ---
PT RETURNS TO UNIT WITH ALCOHOL ABUSE, +AH, AND SOME PARANOIA AROUND NEIGHBORS. PT'S FIANCE VISITED UNTIL 2044. PT APPEARED TO SLEEP WELL WITH CPAP ON MOST OF THE NIGHT.
--- NOTE | 2017-03-01 08:13 | CP SOUTH PROGRESS NOTE PSYCH ---
Psych (Inpt) Progress Note Progress Note Include the following elements, when applicable: Involvement in the active treatment of the patient with behavioral observations of the patient and the patient's response to the treatment. Review of the ongoing treatment process in the context of the treatment plan. Indication of how multi-disciplinary staff members are carrying out the treatment plan. Plans for future interventions and recommendations for revision of the treatment plan. Liaison with other physicians/providers. Progress Note: I discussed this patient's progress to date, current mental status, treatment process in the context of the treatment plan, and discharge planning with staff/ team in the daily morning inpatient team meeting. I also met with the patient myself in individual session. Current Medications Sig/Dulce Start time Last Medication Dose Route Stop Time Status Admin Acamprosate 666 MG TID 02/26 1600 AC 03/01 PO 0858 Acetaminophen 650 MG Q6P PRN 02/26 1200 AC PO Al Hydroxide/Mg 30 ML Q4-6 PRN PRN 02/26 1200 AC Hydroxide PO Benztropine Mesylate 0.5 MG BID 02/26 1205 AC 03/01 PO 0858 Gabapentin 300 MG Q6P PRN 02/26 1200 AC PO Lamotrigine 125 MG DAILY 02/28 1000 AC 03/01 PO 0858 Levothyroxine Sodium 0.075 MG DAILY AC 02/27 0700 AC 03/01 PO 0617 [place] Carbonate 750 MG 00 03/02 0800 AC PO [place] Carbonate 150 MG ONE TIME ONE 03/01 1030 DC PO 03/01 1031 [place] Carbonate 600 MG 02/27 0800 DC 03/01 PO 0858 [place] Carbonate 900 MG AT BEDTIME 02/26 2200 AC 02/28 PO 2205 Lorazepam 0.5 MG ONCE 03/03 0000 AC PO 03/03 0001 Lorazepam 0.5 MG Q6H 03/02 0000 AC PO 03/02 1801 Lorazepam 0.5 MG ONCE ONE 03/01 1800 AC PO 03/01 1801 Lorazepam 1 MG Q6H 03/01 0000 AC 03/01 PO 03/01 1201 0620 Lorazepam 1.5 MG Q12H 02/28 0600 DC 02/28 PO 02/28 1801 1752 Lorazepam 1 MG Q12H 02/28 0000 DC 02/28 PO 02/28 1201 1239 Lorazepam 2 MG Q2P PRN 05/30 1200 AC PO Lorazepam 1 MG Q2P PRN 02/26 1200 AC PO Magnesium Hydroxide 30 ML AT BEDTIME PRN 02/26 1200 AC PO Melatonin 10 MG AT BEDTIME 02/26 2200 AC 02/28 PO 2205 Multivitamins 1 TAB DAILY 02/26 1201 AC 03/01 PO 0858 Risperidone 4 MG 0 03/01 2200 AC PO Risperidone 3 MG AT BEDTIME 02/26 2200 DC 02/28 PO 220 Trazodone HCl 50 MG AT BEDTIME NEED.. 02/26 1200 AC PO Vital Signs Date Time Temp Pulse Resp B/P B/P Pulse O2 O2 Flow FiO2 Mean Ox Delivery Rate 03/01 0752 97.1 60 149/98 03/01 0741 97.1 60 149/98 02/29 2000 99.0 79 147/98 02/28 1958 99.0 79 147/98 02/28 1558 86 162/84 02/28 1540 86 162/84 02/28 1237 88 142/90 02/28 1226 88 142/90 A: Chart, progress notes, labs, vital signs and medication list were reviewed. Trough Li level = 0.6. Blood pressure elevated (likely secondary to etoh w/d). All other VS within normal range. Met with patient this morning. He stated that he decided against going to inpatient residential for alcohol treatment. Stated he did this twice in the past with minimal effect. Expressed that he would commit to attending 2 AA meetings/weekly which are near his house which would eliminate any transportation barrier. Also shared he would be agreeable to engage in once a week individual therapy in addition to seeing a medication provider. Informed patient that tx recommendation remains Dual IOP. He continued to express wanting to switch from Campral to Antabuse. Informed patient again that he is not a good candidate for Antabuse given elevated liver function. We agreed to continue Campral for now, as patient did express this being somewhat of an effective alcohol deterrent. We will also repeat LFTs on Saturday. Patient continued to express wanting to D/C Risperdal Consta. He believes it makes him feel "cloudy, confused." Advised patient of the risks of this, including increase risk of medication nonadherence given past hx. Patient verbalized understanding and agreeable to increase scheduled po Risperdal and D/ C Risperdal Consta. Patient reported continued "benign" intermittent auditory hallucinations telling him he is worthless and useless. He denied these were command in nature. Stated he is easily able to distract himself from voices by engaging in unit activites or talking to others. Denied visual hallucinations. Described occasional (? hypnogogic) sensation where he feels something/someone brush against his leg and neck during sleep cycle. Stated his sleep has improved since hospitalization. [place] his energy level is better given imcreased sleep. Reported his appetite is "really good." He denied active and passive suicidal ideation, plans and intent. Denied homicidal ideation. Reported continued "general" paranoia towards his neighbor leading him to feel uneasy. No evidence of delusions. Rated depression a 4/10 (10 being the worst). Rated anxiety a 6/10 (10 being the worst). Continued to express feeling worthless and guilty for being a burden on his significant other. Denied feeling hopeless or helpless. Thought process linear, goal-directed. Patient making slow progress, tolerating Lamictal increase, with some improvement in mood and hallucinations. Continues to require inpatient hospitalization for further medication adjustments and completion of alcohol detox. P: 1. D/C Risperdal Consta. Increase po Risperdal from 3mg QHS to 4mg QHS for conitnued AH/paranoia. 2. Cont. ativan taper as ordered. 3. Cont. Lamictal 125mg daily. 4. Increase [place] from 600mg QAM to 750mg QAM. Continue [place] 900mg QPM for mood stabilization. 5. Family meeting w/ significant other Saturday at 1PM. 6. Cont. Campral 666mg TID. 7. Rpt Li level scheduled on 03/04/17. Please order Rpt AST and ALT for 03/04/17 (cannot enter order days in advance in [employer]). 8. Likely discharge Saturday. Dispo planning per primary team.
--- NOTE | 2017-03-01 11:49 | SOCIAL WORKER PROG NOTE PSYCH ---
Social Work Progress Note Progress Note Loki and I spoke today about his ideas for aftercare. Loki talked at length about connecting with AA and going to a couple of the meetings that are within walking distance from his house. I asked what had prevented him from doing this prior? He said he often gets discouraged by some of the "adventist" components of AA and now he is really thinking of it as being more of a social network. He continues to say that is what is missing from his life right now. He talked about feeling "pissed off" that his fiance sometimes doesn't see the sacrifices that he made moving [place] [facility] to [place]. He left behind family and other guys that he used to connect with regularly. He doesn't have that now and basically only has Ammy and calls him Mom in [facility]. He would like to have other men to talk to and people to socialize with. He feels isolated and "bored." This is also a trigger to the drinking. We talked about going to a gym to meet people and get excercise. He used to go to a gym, but it moved. He seems to like to the convenience of having everything easily assessible to him and within walking distance. If it is too far, it becomes a barrier. He doesn' t have transportation and doesn't like to have to rely on other means. We will plan to talk with Ammy (jesús) at 1pm on Saturday. Loki signed a release for me to talk with his therapist at [facility]. His name is Jerome Bustos. I called and left a message for him today.
--- NOTE | 2017-03-01 13:52 | NUR ---
PT HAS BEEN VISIBLE IN THE [place] TODAY. HIS GOAL WAS TO KEEP TRYING TO BE MORE SOCIAL AND ATTEND GROUPS. PT HAS BEEN REACHING HIS GOAL TODAY, BY PARTICIPATING IN GROUPS, AND INTERACTING WITH PEERS. PT HAS BEEN PLEASANT AND COOPERATIVE, HE DENIES THOUGHTS OF HURTING HIMSELF WHEN ASKED.
--- NOTE | 2017-03-01 21:33 | NUR ---
Pt is out in the community mood is stable affect is in full range. Pt is compliant and cooperative with the staff. Vital signs are stable appetite is good. Will continue to monitor the pt overnight.
[2017-03-02] VITALS (8 sets, daily range): BP systolic 140–145; BP diastolic 78–86
--- NOTE | 2017-03-02 05:31 | NUR ---
PT APPEARED TO SLEEP WELL WITH CPAP IN PLACE MOST OF THE NIGHT.
--- NOTE | 2017-03-02 12:45 | NUR ---
PT IS BRIGHT IN AFFECT AND HIS MOOD IS CALM AND COOPERATIVE. HE REPORTS SOME AH NOT COMMAND IN NATURE. HE REPORTS AH IS GETTING QUIETER. HE IDENTIFIES EXERCISE AND GARDENING POSITIVE WAYS TO COPE. HE DENIES ANY THOUGHTS OF SUICIDE OR SELF HARM AT THIS TIME
--- NOTE | 2017-03-02 14:06 | CP SOUTH PROGRESS NOTE PSYCH ---
Psych (Inpt) Progress Note Progress Note Include the following elements, when applicable: Involvement in the active treatment of the patient with behavioral observations of the patient and the patient's response to the treatment. Review of the ongoing treatment process in the context of the treatment plan. Indication of how multi-disciplinary staff members are carrying out the treatment plan. Plans for future interventions and recommendations for revision of the treatment plan. Liaison with other physicians/providers. Progress Note: Pt notes "pretty good" but high level of baseline anxiety. Requested klonopin. Amenable to standing gabapentin instead. Pt notes that feels that meds are working because markedly decreased AVHs though makes thoughts slower and harded to get out. He does not want to make changes to meds though. Denies SI or HI. + AHs but less so. Current Medications Sig/Dulce Start time Last Medication Dose Route Stop Time Status Admin Acamprosate 666 MG TID 02/26 1600 AC 03/02 PO 0834 Acetaminophen 650 MG Q6P PRN 02/26 1200 AC PO Al Hydroxide/Mg 30 ML Q4-6 PRN PRN 02/26 1200 AC Hydroxide PO Benztropine Mesylate 0.5 MG BID 02/26 1205 AC 03/02 PO 0833 Gabapentin 300 MG TID 03/03 1000 AC PO Gabapentin 300 MG BID 03/02 1233 AC 03/02 PO 03/03 0600 1241 Gabapentin 300 MG Q6P PRN 02/26 1200 AC PO Lamotrigine 125 MG DAILY 02/28 1000 AC 03/02 PO 0834 Levothyroxine Sodium 0.075 MG DAILY AC 02/27 0700 AC 03/02 PO 0612 [place] Carbonate 750 MG 0803/02 0800 AC 03/02 PO 0834 [place] Carbonate 900 MG AT BEDTIME 02/26 2200 AC 03/01 PO 2249 Lorazepam 0.5 MG ONCE 03/03 0000 AC PO 03/03 0001 Lorazepam 0.5 MG Q6H 03/02 0000 AC 03/02 PO 03/02 1801 1241 Lorazepam 0.5 MG ONCE ONE 03/01 1800 DC 03/01 PO 03/01 1801 1818 Lorazepam 2 MG Q2P PRN /30 1200 AC PO Lorazepam 1 MG Q2P PRN 30 1200 AC PO Magnesium Hydroxide 30 ML AT BEDTIME PRN 30 1200 AC PO Melatonin 10 MG AT BEDTIME 02/26 2200 AC 03/01 PO 2249 Multivitamins 1 TAB DAILY 02/26 1201 AC 03/02 PO 0833 Risperidone 4 MG 2200 03/01 2200 AC 03/01 PO 2249 Trazodone HCl 50 MG AT BEDTIME NEED.. 02/26 1200 AC PO Laboratory Tests 03/01 06 Toxicology [place] (0.6 - 1.2 mmol/L) 0.6 Vital Signs Date Time Temp Pulse Resp B/P B/P Pulse O2 O2 Flow FiO2 Mean Ox Delivery Rate 03/02 1223 56 145/78 03/02 1220 56 145/78 03/02 0758 72 140/78 06/ 0755 97.0 72 140/78 / 0018 61 97 /1999 98.3 80 16 184/91 06/ 195 98.3 80 16 184/91 /02 1550 73 158/78 06/ 1538 73 158/78 MSE Appears as stated age. Cooperative behavior, good, appropriate eye contact. Nl speech rate and prosody. +psychomotor retardation. Mood fine Affect flat constricted, appropriate, non-liable. Linear and goal directed thought process. Denies SI or HI. Does not appear to be responding to internal stimuli. +AHs, paranoia, delusions. I/J: limited A/P: Pt with Bipolar disorder with psychotic features now with improved mood and psychosis though pt noting some mental slowing. Nonetheless, wants to continue meds as they are. - Added gabapentin 300mg BID x1d then 300mg TID for anxiety - Otherwise continue current medication regimen.
--- NOTE | 2017-03-02 17:57 | NUR ---
PT IS CALM, COOPERATIVE WITH STAFF AND PEERS, AND COMPLIANT WITH UNIT RULES. OFTEN IN [place], INTERACTING WELL WITH OTHERS. CAN APPEAR SLIGHTLY HYOERACTIVE, PACING ABOUT UNIT AT TIME. MOOD IS STABLE, AFFECT APPEARS EUTHYMIC TO FULL RANGE, COMMUNICATION IS ORGANIZED AND APPEARS NORMAL IN ALL RESPECTS, AND APPETITE IS NORMAL. PT DENIES SI AT THIS TIME.
--- NOTE | 2017-03-03 05:31 | NUR ---
PATIENT AWAKE SEVERAL TIMES DURING THE NIGHT, TO BATHROOM AND TO GET WATER, ALERT AND ORIENTED X3, PLEASANT AND COOPERATIVE.
[2017-03-03 08:02] VITALS: BP 135/71
--- NOTE | 2017-03-03 10:34 | CP SOUTH PROGRESS NOTE PSYCH ---
Psych (Inpt) Progress Note Progress Note Include the following elements, when applicable: Involvement in the active treatment of the patient with behavioral observations of the patient and the patient's response to the treatment. Review of the ongoing treatment process in the context of the treatment plan. Indication of how multi-disciplinary staff members are carrying out the treatment plan. Plans for future interventions and recommendations for revision of the treatment plan. Liaison with other physicians/providers. Progress Note: Pt notes less anxious today with gabapentin. Notes that visited one day ago and it went well. Denies SI or HI. Current Medications Sig/Dulce Start time Last Medication Dose Route Stop Time Status Admin Acamprosate 666 MG TID 02/26 1600 AC 03/03 PO 0808 Acetaminophen 650 MG Q6P PRN 02/26 1200 AC PO Al Hydroxide/Mg 30 ML Q4-6 PRN PRN 02/26 1200 AC Hydroxide PO Benztropine Mesylate 0.5 MG BID 02/26 1205 AC 03/03 PO 0809 Gabapentin 300 MG TID 03/03 1000 AC 03/03 PO 0810 Gabapentin 300 MG BID 03/02 1233 DC 03/02 PO 03/03 0600 2132 Gabapentin 300 MG Q6P PRN 02/26 1200 AC PO Lamotrigine 125 MG DAILY 02/28 1000 AC 03/03 PO 0809 Levothyroxine Sodium 0.075 MG DAILY AC 02/27 0700 AC 03/03 PO 0527 [place] Carbonate 750 MG 0803/02 0800 AC 03/03 PO 0809 [place] Carbonate 900 MG AT BEDTIME 02/26 2200 AC 03/02 PO 2132 Lorazepam 0.5 MG ONCE 03/03 0000 DC PO 03/03 0001 Lorazepam 0.5 MG Q6H 03/02 0000 DC 03/02 PO 03/02 1801 1703 Lorazepam 2 MG Q2P PRN 02/26 1200 DC PO Lorazepam 1 MG Q2P PRN 02/26 1200 DC PO Magnesium Hydroxide 30 ML AT BEDTIME PRN 02/26 1200 AC PO Melatonin 10 MG AT BEDTIME 02/26 2200 AC 03/02 PO 2132 Multivitamins 1 TAB DAILY 02/26 1201 AC 03/03 PO 0810 Risperidone 4 MG 2200 03/01 2200 AC 03/02 PO 2132 Trazodone HCl 50 MG AT BEDTIME NEED.. 02/26 1200 AC PO Laboratory Tests 06/02 0613 Toxicology [place] (0.6 - 1.2 mmol/L) 0.6 Vital Signs Date Time Temp Pulse Resp B/P B/P Pulse O2 O2 Flow FiO2 Mean Ox Delivery Rate 03/03 802 97.5 57 135/71 03/02 2245 55 93 03/02 1945 98.3 60 144/78 03/02 1940 98.3 60 144/78 03/02 1617 70 144/86 03/02 1613 70 144/86 03/02 1223 56 145/78 03/02 1220 56 145 MSE Appears as stated age. Cooperative behavior, good, appropriate eye contact. Nl speech rate and prosody. +psychomotor retardation. Mood much better Affect less flat, full range, appropriate, non-liable. Linear and goal directed thought process. Denies SI or HI. Does not appear to be responding to internal stimuli. +AHs, paranoia, delusions. I/J: limited A/P: Pt with Bipolar disorder with psychotic features now with improved mood and psychosis though pt noting some mental slowing. Nonetheless, wants to continue meds as they are. - Increase gabapentin to 300mg TID for anxiety - Otherwise continue current medication regimen.
--- NOTE | 2017-03-03 11:53 | NUR ---
Patient is A&O X 3, compliant with medication and group therapies. Patient is present in the community, interacts with other peers and staff members, exercising by walking along the hallways as needed. Patient appears very stable physically,vital sign is stable and within the acceptable range,mood is stable with appropriate affects, denies any AH/VH, thought of self-harm and to someone else.
[2017-03-03 12:05] VITALS: BP 132/74
[2017-03-03 16:09] VITALS: BP 142/67
--- NOTE | 2017-03-03 17:31 | NUR ---
PT IS CALM, COOPERATIVE WITH STAFF AND PEERS, AND COMPLIANT WITH UNIT RULES. OFTEN IN [place], INTERACTING WELL WITH OTHERS. MOOD IS STABLE, AFFECT IS EUTHYMIC TO FULL RANGE, COMMUNICATION IS ORGANIZED AND APPEARS NORMAL IN ALL RESPECTS, AND APPETITE IS NORMAL. PT DENIES SI AT THIS TIME.
[2017-03-03 19:48] VITALS: BP 146/78
[2017-03-04 07:48] LABS: LITHIUM 0.7 mmol/L (0.6-1.2)
[2017-03-04 07:49] VITALS: BP 138/78
--- NOTE | 2017-03-04 10:32 | SOCIAL WORKER PROG NOTE PSYCH ---
Social Work Progress Note Progress Note Called [facility] to get follow up appt.'s for Loki. His clincian can see him on 03/08 at 8am. His prescriber Christy Lora APRN will see him on 03/13 at 5pm. Called [facility] to let them know that Loki will be discharging today. They will try and see him later today. Family meeting held with Ammy smith) and Loki. Marie Lockhart APRN was also at this meeting. Loki stated he has been sleeping better here. He has been utilizing the CPAP. He tends to take it off at home. He is thinking that could also be contributing to his confusion at times. Discussed the use of Antabuse, if he would like to consider it with his outpatient provider in the future. Liver function seems to be better now. He talked in the meeting about how he hadn't followed up at in the past and that he really was not thinking about taking "drinking off the table." He appears to be a little more motivated at this point. Talked about following up at and developing a social network. Voices seem benign today. Stated that occasionally they are "just commentary." Feels less paranoia right now about neighbors. Ammy remains supportive. Talked about planning a trip to the [place] in a month. Loki will be out there for a couple weeks and then return without Ammy back home. She will follow a week or so later. Talked about importance of developing network with AA now.
[2017-03-04 12:25] VITALS: BP 133/79
[2017-03-04] MEDS ORDERED: GABAPENTIN300 M2 PO (13:38)
[2017-03-04] MEDS ORDERED: LAMICTAL100 M2 PO (13:39)
[2017-03-04] MEDS ORDERED: RISPERDAL2 M1 PO (13:40)
[2017-03-04] MEDS ORDERED: LITHIUM CARBON300 M4 PO (13:43)
[2017-03-04] MEDS ORDERED: LITHIUM CARBON150 M1 PO (13:44)
[2017-03-04] MEDS ORDERED: BENZTROPINE ME0.5 M1 PO (13:45)
[2017-03-04] MEDS ORDERED: ACAMPROSATE CA333 M1 PO (13:47)
[2017-03-04] MEDS ORDERED: ONE DAILY MULT1 EAC2 PO (13:48)
[2017-03-04] MEDS ORDERED: SYNTHROID75 MCG PO (13:48)
[2017-03-04] MEDS ORDERED: LAMICTAL25 M1 PO (13:49)
[2017-03-04] MEDS ORDERED: MELATONIN5 M7 PO (13:49)
--- NOTE | 2017-03-04 13:53 | CP SOUTH PROGRESS NOTE PSYCH ---
Psych (Inpt) Progress Note Progress Note Include the following elements, when applicable: Involvement in the active treatment of the patient with behavioral observations of the patient and the patient's response to the treatment. Review of the ongoing treatment process in the context of the treatment plan. Indication of how multi-disciplinary staff members are carrying out the treatment plan. Plans for future interventions and recommendations for revision of the treatment plan. Liaison with other physicians/providers. Progress Note: I discussed this patient's progress to date, current mental status, treatment process in the context of the treatment plan, and discharge planning with staff/ team in the daily morning inpatient team meeting. I also met with the patient myself in individual session. Current Medications Sig/Dulce Start time Last Medication Dose Route Stop Time Status Admin Acamprosate 666 MG TID 02/26 1600 AC 03/04 PO 0840 Acetaminophen 650 MG Q6P PRN 02/26 1200 AC PO Al Hydroxide/Mg 30 ML Q4-6 PRN PRN 02/26 1200 AC Hydroxide PO Benztropine Mesylate 0.5 MG BID 02/26 1205 AC 03/04 PO 0840 Gabapentin 300 MG TID 03/03 1000 AC 03/04 PO 0840 Gabapentin 300 MG Q6P PRN 02/26 1200 AC 03/03 PO 1335 Lamotrigine 125 MG DAILY 02/28 1000 AC 03/04 PO 0839 Levothyroxine Sodium 0.075 MG DAILY AC 02/27 0700 AC 03/04 PO 0613 [place] Carbonate 750 MG 03/04 0800 DC PO [place] Carbonate 600 MG 03/04 0800 DC PO [place] Carbonate 150 MG 03/04 0800 AC 03/04 PO 0840 [place] Carbonate 600 MG 03/04 0800 AC 03/04 PO 0840 [place] Carbonate 900 MG AT BEDTIME 02/26 2200 AC 03/03 PO 2134 Magnesium Hydroxide 30 ML AT BEDTIME PRN 02/26 1200 AC PO Melatonin 10 MG AT BEDTIME 02/26 2200 AC 03/03 PO 2134 Multivitamins 1 TAB DAILY 02/26 1201 AC 03/04 PO 0840 Risperidone 4 MG 03/01 2200 AC 03/03 PO 2135 Trazodone HCl 50 MG AT BEDTIME NEED.. 02/26 1200 AC PO Laboratory Tests 03/04/17 0658: Total Bilirubin 0.8, Direct Bilirubin 0.2, AST 40, ALT 100 H, Alkaline Phosphatase 42, Total Protein 6.8, Albumin 4.1, [place] 0.7 Vital Signs Date Time Temp Pulse Resp B/P B/P Pulse O2 O2 Flow FiO2 Mean Ox Delivery Rate 03/04 1225 50 133/79 03/04 0749 96.6 59 138/78 03/03 1948 98.9 65 146/78 03/03 1609 63 142/67 A: Chart, progress notes, labs, vital signs and medication list were reviewed. Trough Li level = 0.7. AST wnl and ALT improved but remains elevated. Met with patient together his significant other Ammy and Leisa Feng LCSW for a family session. Reviewed the patient's progress to date, medication regimen, level of safety and discharge plan. Patient's significant other expressed no safety concerns surrounding the patient's discharge or discharge plan for patient to follow up with [facility] for daily medication administration, [facility] counseling/ medication management and AA for support in sobriety. Patient was also in favor of discharge plan. Patient presented oriented x 3. Described his mood as "better." Affect was full- range, non-labile. Eye contact was appropriate. Speech was normal in rate, tone and volume. He had no complaints. Denied acute symptoms of depression and anxiety. Denied feeling hopeless, helpless, worthless. Reported some feelings of guilt given recent relapse on alcohol and effect it has had on his relationship with his significant other. He denied active and passive suicidal ideation, plans and intent. Stated and also believed he will not harm himself or others. Gave protective factors of "Ammy" and "my mom." Denied homicidal ideation and visual hallucinations. Reported a significant improvement in auditory hallucinations since admission on 02/27/17. Denied auditory hallucinations were command or distressing in nature. Described them as "intermittent, benign, mostly commentary, saying my name." Denied paranoia. No evidence of delusions. Thought process was linear, goal-directed. Cognition grossly intact. He denied urges and cravings to use alcohol. Patient reported tolerating medications well and denied untoward effects. He reported feeling safe and ready for discharge. P: 1. Discharge today into the care of his significant other. 2. F/u at [facility] on 03/08/17 at 8AM for individual therapy and on at 5PM with Christy Lora APRN. 3. Resume medication management with [facility] this evening for daily medication administration and oversight. 4. Patient was strongly advised to abstain from all substances. He was advised to attend weekly AA meetings and obtain a sponsor for support in sobriety. 5. Patient was advised that in the event of an emergency, to call 911/go to nearest emergency department. Patient verbalized understanding of all instructions. 6. All discharge prescriptions were e-prescribed to [facility] in [place], [place] today.
--- NOTE | 2017-03-04 13:54 | DISCHARGE SUMMARY REPORT-PSYCH ---
Visit Information Visit Dates/Diagnosis' Admission Date: 02/26/17 Discharge Date: 03/04/17 Reason for Admission: Patient presented to [facility] Emergency Department with alleged command AH to kill himself in ED triage. He recanted this report on admission interview, stated he endorsed AH but not to harm himself. Stated he relapsed on alcohol and since has decompensated with manic symptoms. Psy Discharge Primary Diag: Bipolar disorder, MRE depressed with psychotic features Psy Discharge Secondary Diag: R/O Schizoaffective disorder, bipolar type; Alcohol use disorder, severe; HTN; Hypothyroidism; Obstructive sleep apnea. Hospital Course Significant Lab Findings: Lab ALT 104 U/L H 02/25/172142 ALT 100 U/L H 03/04/1758 AST 121 U/L H 02/25/172142 AST 40 U/L 03/04/1758 Glucose 109 mg/dL H 02/25/172142 [place] 0.6 mmol/L 03/01/1713 [place] 0.7 mmol/L 03/04/1758 Serum Alcohol 213.0 MG/DL 02/25/172142 Course Complications: None. Consultations: The patient was seen for admission history and physical by ux research associate Dr. Donny Trivedi. Please see his note for additional information. Allergies: Coded Allergies: No Known Allergies (02/25/17) Hospital Course/TX Response: The patient was monitored on the unit for safety, mood, suicidal ideation and psychosis. He was also monitored on CIWA protocol and started on an Ativan taper for alcohol withdrawal. He completed Ativan taper without any complications. Lamictal 100mg daily was increased to 125mg daily for mood stabilization/ depression. Risperdal Consta was discontinued due to complaints of confusion since starting medication. He was agreeable to increasing standing oral Risperdal from 3mg QHS to 4mg QHS for clear thoughts. [place] was increased from 600mg QAM and 900mg QPM to 750mg QAM and 900mg QPM for mood stabilization. Cogentin 0.5mg BID was continued for muscle stiffness. Campral 666mg TID was continued for alcohol cravings. Melatonin 10mg QHS was continued for sleep induction/insomnia. Synthroid 75mg QAM AC was continued for hypothyroidism. Patient reported tolerating medications well and denied untoward medication effects. During the hospital course, the patient's mood and affect improved. Suicidal ideation remitted. Paranoia towards his neighbor remitted. Auditory hallucinations significantly lessened in intensity. The patient reported on the date of discharge that auditory hallucinations were "benign," non-commmand or distressing in nature. He consistently denied visual hallucinations and homicidal ideation. A family meeting was held with the patient, his significant other, Ammy, Leisa Feng, WALLACE and Jaelyn. The patient's treatment progress, medication regimen, level of safety and discharge plan were reviewed and discussed. Ammy expressed no safety concerns surrounding the patient's discharge or discharge plan for him to follow up with [facility] for daily medication administration, [facility] counseling/medication management and AA for support in sobriety. Patient was also in favor of discharge plan. On the date of discharge, 03/04/17, he presented oriented x 3. Described his mood as "better." Affect was full-range, non-labile. Eye contact was appropriate. Speech was normal in rate, tone and volume. He had no complaints. Denied acute symptoms of depression and anxiety. Denied feeling hopeless, helpless, worthless. Reported some feelings of guilt given recent relapse on alcohol and the effect it has had on his relationship with his significant other. He denied active and passive suicidal ideation, plans and intent. Stated and also believed he will not harm himself or others. Gave protective factors of "Ammy" and "my mom." Denied homicidal ideation and visual hallucinations. Reported a significant improvement in auditory hallucinations since admission on 02/27/17. Denied auditory hallucinations were command or distressing in nature. Described them as "intermittent, benign, mostly commentary, saying my name." Denied paranoia. No evidence of delusions. Thought process was linear, goal-directed. Cognition grossly intact. He denied urges and cravings to use alcohol. Patient reported tolerating medications well and denied untoward effects. He reported feeling safe and ready for discharge. Discharge HBIPS - Tobacco Use Treatment Offered Post DC Medications Offered: Not Applicable Post DC Tobacco Treatment Plan: Not Applicable - EtOH/Drug Use D/O Treatment Offered Post DC Medications Offered: Script Given-See Med List Post DC EtOH/SubAbuse TX Plan: Refused Post DC Tx Pgm Metabolic Screening - Screen if on a Neuroleptic Medication - Metabolic screening should include: - Blood Pressure, BMI, Glucose or Hgb A1c, & a - Lipid profile from within the past 365 days. Metabolic Screening () Not Applicable, patient not on a neuroleptic. OR (X) Patient on a neuroleptic(s) . Enter below results for Glucose or Hemoglobin A1C, and lipid panel if obtained during the last 365 days. BMI: 38.300 Blood Pressure: 133/79 Laboratory Results (If applicable): Lab Cholesterol 191 MG/DL 01/22/17434 Cholesterol/HDL Ratio 5 % H 01/22/17434 HDL Cholesterol 38 mg/dL L 01/22/17434 Hemoglobin A1c 5.1 % 01/20/17417 LDL Cholesterol Direct 109.28 mg/dL H 01/20/17417 LDL Cholesterol, Calc 107 mg/dL 01/22/17434 Triglycerides 232 mg/dL H 01/22/17434 Discharge Instructions General Discharge Information Discharge Medications: Discharge Medications- (Dose, route, freq, indication): START taking these NEW Home Medications: Gabapentin Dose: ORAL, THREE TIMES DAILY Qty: 42 Sent to (Gabapentin) 300 MG 300 Milligram for off-label anxiety Refills: 0 Pharm 1 CAPSULE Take 1 cap po TID. Lamotrigine Dose: ORAL, DAILY for mood Qty: 14 Sent to (Lamictal) 100 MG 125 Milligram stabilization Refills: 0 Pharm 1 TABLET Take 1 tab (100mg) + 1 tab (25mg) po daily. Risperidone Dose: ORAL, TAKE AT BEDTIME Qty: 28 Sent to (Risperdal) 2 MG 4 Milligram for clear thoughts Refills: 0 Pharm 1 TABLET Take 2 tabs (4mg) po QHS. [place] Carbonate Dose: ORAL, SEE INSTRUCTIONS Qty: 70 Sent to ([place] Carbonate) 1,500 for mood stabilization Refills: 0 Pharm 1 300 MG CAPSULE Milligram Take 2 caps (600mg) po QAM and 3 caps (900mg) QPM. [place] Carbonate Dose: ORAL, Every Morning for Qty: 14 Sent to ([place] Carbonate) 150 Milligram mood stabilization Refills: 0 Pharm 1 150 MG CAPSULE Take 1 cap po QAM (for a total of 750mg QAM) Benztropine Mesylate Dose: ORAL, TWICE DAILY for Qty: 28 Sent to (Benztropine 0.5 Milligram muscle stiffness Refills: 0 Pharm 1 Mesylate) 0.5 MG Take 1 tab po BID. TABLET Acamprosate Calcium Dose: ORAL, THREE TIMES DAILY Qty: 84 Sent to (Acamprosate 666 Milligram for alcohol craving Refills: 0 Pharm 1 Calcium) 333 MG Take 2 tabs po TID. TABLET. Levothyroxine Sodium Dose: ORAL, DAILY BEFORE Qty: 14 Sent to (Synthroid) 75 MCG 0.075 BREAKFAST for Refills: 0 Pharm 1 TABLET Milligram hypothyroidism Take 1 tab po QAM AC. Multivitamin (One Dose: ORAL, DAILY for vitamin Qty: 14 Sent to Daily Multivitamin) 1 Tablet support Refills: 0 Pharm 1 1 EACH TABLET Take 1 tab po QAM. Melatonin Dose: ORAL, AT BEDTIME for Qty: 28 Sent to (Melatonin) 5 MG 10 Milligram sleep induction/insomnia Refills: 0 Pharm 1 TABLET Take 2 tabs po QHS. Lamotrigine Dose: ORAL, DAILY for mood Qty: 14 Sent to (Lamictal) 25 MG 1 Tablet stabilization Refills: 0 Pharm 1 TABLET STOP taking these DISCONTINUED Home Medications: Risperidone Microspheres Dose: INTRAMUSC, EVERY 2 WEEKS for (Risperdal Consta) 37.5 MG/2 1 Syringe MENTAL HEALTH ML SYRINGE Reason Stopped: Per Doctor Decision 1: [id number], [address] [place] [id number] [id number] [address] [place] [id number] Multiple Neuroleptics: ([X]) Not Applicable OR Document below three failed attempts at monotherapy, or a plan to taper to monotherapy, or augmentation of Clozapine. () Patient's Diet: Regular. Patient's Activity: No restrictions. DC Disposition: Patient to return to home and significant other. Recommendations: The patient was advised to please take his medications as prescribed. He was advised to abstain from alcohol, attend weekly AA meetings and to obtain a sponsor for support in sobriety. He was advised to follow up with referrals and to follow up with his PCP for cholesterol management. He was advised that in the event of an emergency to call 911/go to nearest emergency department. Patient verbalized understanding of all instructions. Recommend repeating LFTs and if within normal range considering switch from Campral to Antabuse as patient expressed past positive effect from medication. Further recommend increasing [place] to the upper normal therapeutic range for further mood stabilization. Referred To: Provider Referral Service Date: 03/08/17 Referred To: [[facility]] Notes: [facility] appt. with clinician 03/08/[address] [place] [id number] Provider Referral Service Date: 03/13/17 Referred To: [[facility]] Notes: [facility] Appt. with Christy Lora APRN 03/13/17 5pm [phone] Provider Referral Service Date: 03/04/17 Referred To: [[facility]] Notes: [facility] for daily medication administration and oversight [phone] Copies To: [facility]; [facility]
--- NOTE | 2017-03-04 14:23 | NUR ---
Patient discharged today to [facility]. mood stable.denies SI , continues to hear voices patient states "always there, in the background" Education given on Alcohol abuse and SI.positive understanding of follow up and medication.
== END 2017-03-04 14:20 | DRG 753 ==
LOC: ERH 19:52 → ERHI 02-26 10:11 → CP SOUTH 02-26 10:11 → ENTRNSPT 02-26 16:00 → CMPTRNSPT 02-26 16:21 → CP SOUTH 02-26 16:36 → CMPTRNSPT 02-26 16:42 → CP SOUTH 02-26 17:02 → ENPENDDIS 03-04 14:30
PROVIDERS: Pediatrics; Registered Nurse Psychiatric/Mental Health; ADMIT Psychiatry & Neurology Psychiatry
DX: F31.5 Bipolar disorder, current episode depressed, severe, with psychotic features (principal); F10.20 Alcohol dependence, uncomplicated; I10 Essential (primary) hypertension; E03.9 Hypothyroidism, unspecified; G47.33 Obstructive sleep apnea (adult) (pediatric)
CPT/HCPCS: 36415; 80307; 93005; 93010; G0480; J3490